=== PATIENT | female | born 1960 | race Caucasian/White ===

== ENCOUNTER 2022-10-02 23:20 | Inpatient (IN) | payer OTHER ==
--- NOTE | 2022-10-03 00:08 | ED ---
General Adult HPI - General Source: patient, RN notes reviewed Mode of arrival: EMS <Gautam Velarde - Last Filed: 10/03/22 02:44> <Shanelle Reed - Last Filed: 10/10/22 23:53> - General Chief complaint: Syncope Stated complaint: syncope Time Seen by Provider: 10/02/22 23:51 - History of Present Illness Initial comments: This is a pleasant 62-year-old female who arrives via EMS after having a syncopal episode. Patient states she walked to the bathroom and walked back to the living room. Patient states she got to the couch, felt lightheaded and passed out. Patient also ascertain that she has facial numbness which is now resolved. There was no seizure activity. This was witnessed by family. Patient states other than the lightheadedness she has no other preceding symptomology. However patient states that she is having generalized weakness which actually started earlier today. Patient currently being treated for a urinary tract infection. She is been on "ampicillin" for 5 days. GENERALIZED weakness, Patient has edema which she states has been present for several days to report stories. She has no other complaints. Patient does have a history of COPD. Former cigarette smoker. Patient states that her blood sugar was elevated via EMS. However she has no history of diabetes. No headache, no fever or chills, no changes in vision or hearing, no sore throat or difficulty with speech, no neck pain, no chest pain or shortness of breath, no abdominal pain, no nausea or vomiting, no changes in urination or bowel movem ents, no numbness or tingling, no extremity pain, no skin rashes or lesions. Past medical, surgical, social, and family history reviewed. NOTE that the patient states the symptoms started around 12 noon. (Gautam Velarde) - Related Data Home Medications Medication Instructions Recorded Confirmed Albuterol Nebulized [Ventolin 3 ml INHALATION RT-QID 10/03/22 10/03/22 Nebulized] Albuterol Sulfate [Ventolin HFA] 2 puff INHALATION RT-QID PRN 10/03/22 10/03/22 Atorvastatin Calcium [Lipitor] 80 mg PO DAILY 10/03/22 10/03/22 Budesonide-Formot 160-4.5 Mcg 1 puff INHALATION RT-BID 10/03/22 10/03/22 [Symbicort 160-4.5 Mcg Inhaler] Cyclobenzaprine [Flexeril] 10 mg PO TID PRN 10/03/22 10/03/22 Ergocalciferol [Vitamin D2 (1250 2,500 mcg PO Q28D 10/03/22 10/03/22 Mcg = 72125 Iu)] Ibuprofen [Motrin] 800 mg PO QID 10/03/22 10/03/22 Ketotifen 0.025% Ophth Soln 1 drop BOTH EYES BID 10/03/22 10/03/22 [Zaditor] Loratadine [Claritin] 10 mg PO DAILY 10/03/22 10/03/22 Metoclopramide [Reglan] 10 mg PO TID PRN 10/03/22 10/03/22 Montelukast [Singulair] 10 mg PO HS 10/03/22 10/03/22 Naloxegol Oxalate [Movantik] 25 mg PO DAILY 10/03/22 10/03/22 Naproxen [Naprosyn] 500 mg PO BID-W/MEALS 10/03/22 10/03/22 Omeprazole [PriLOSEC] 20 mg PO BID 10/03/22 10/03/22 Ondansetron [Zofran] 4 mg PO DAILY 10/03/22 10/03/22 Potassium Chloride [Klor-Con M20] 20 meq PO BID 10/03/22 10/03/22 QUEtiapine FUMARATE [QUEtiapine 300 mg PO HS 10/03/22 10/03/22 FUMARATE ER] Sucralfate [Carafate] 1 gm PO QID 10/03/22 10/03/22 methocarbamoL [Methocarbamol] 500 mg PO TID 10/03/22 10/03/22 rOPINIRole HCL 0.25 mg PO HS 10/03/22 10/03/22 Allergies Allergy/AdvReac Type Severity Reaction Status Date / Time No Known Allergies Allergy Verified 10/03/22 09:17 Review of Systems ROS Other: All systems not noted in ROS Statement are negative. <Gautam Velarde - Last Filed: 10/03/22 02:44> ROS Other: All systems not noted in ROS Statement are negative. <Shanelle Reed - Last Filed: 12/19/22 23:53> ROS Statement: Those systems with pertinent positive or pertinent negative responses have been documented in the HPI. Past Medical History Past Medical History: COPD History of Any Multi-Drug Resistant Organisms: None Reported Past Surgical History: Cholecystectomy, Hysterectomy, Tonsillectomy Past Psychological History: No Psychological Hx Reported Smoking Status: Former smoker Past Alcohol Use History: None Reported Past Drug Use History: None Reported <Gautam Velarde - Last Filed: 10/03/22 02:44> General Exam General appearance: alert, in no apparent distress Head exam: Present: atraumatic, normocephalic, normal inspection Eye exam: Present: normal appearance, PERRL, EOMI. Absent: scleral icterus, conjunctival injection, periorbital swelling ENT exam: Present: normal exam, normal oropharynx, mucous membranes moist, normal external ear exam. Absent: mucous membranes dry Neck exam: Present: normal inspection, full ROM. Absent: tenderness, meningismus, lymphadenopathy Respiratory exam: Present: wheezes. Absent: chest wall tenderness, accessory muscle use, decreased breath sounds, prolonged expiratory Cardiovascular Exam: Present: regular rate, normal rhythm, normal heart sounds. Absent: systolic murmur, diastolic murmur, rubs, gallop, clicks GI/Abdominal exam: Present: soft, normal bowel sounds. Absent: distended, tenderness, guarding, rebound, rigid Extremities exam: Present: pedal edema Back exam: Present: normal inspection Neurological exam: Present: alert, oriented X3, CN II-XII intact, other (No evidence of focal neurologic deficit.). Absent: motor sensory deficit Expanded Patient oriented to: Present: person, place, time Speech: Present: fluid speech Cranial nerves: EOM's Intact: Normal, Gag Reflex: Normal, Tongue Deviation: Normal, Nystagmus: Normal, Facial Sensation: Normal, Facial Palsy with Forehead Movement: Normal, Facial Palsy without Forehead Movement: Normal Ataxia: Absent: yes Cerebellar function: Finger to Nose: Normal Upper motor neuron: Abdirizak Neglect: Normal, Pronator Drift: Normal Motor strength exam: RUE: 5, LUE: 5, RLE: 5, LLE: 5 Eye Response: (4) open spontaneously Motor Response: (6) obeys commands Verbal Response: (5) oriented Reina Total: 15 Psychiatric exam: Present: normal affect, normal mood Skin exam: Present: warm, dry, intact, normal color. Absent: rash, cyanosis, diaphoretic, erythema, urticaria, vesicles, petechiae <Gautam Velarde - Last Filed: 10/03/22 02:44> Course <Gautam Velarde - Last Filed: 10/03/22 02:44> Vital Signs 10/02/22 10/03/22 10/03/22 23:48 02:00 03:00 Temperature 98.4 F Pulse Rate 91 98 100 Pulse Rate [ Plumbing Installer ] Respiratory 20 15 19 Rate Blood Pressure 133/89 126/60 141/84 Blood Pressure [Left Arm] O2 Sat by Pulse 98 96 98 Oximetry 10/03/22 10/03/22 10/03/22 07:42 07:50 08:50 Temperature 98.1 F Pulse Rate 87 88 Pulse Rate [ 93 Plumbing Installer ] Respiratory 16 Rate Blood Pressure Blood Pressure 127/63 [Left Arm] O2 Sat by Pulse 99 Oximetry 10/03/22 10/03/22 10/03/22 12:10 12:22 12:25 Temperature 96.8 F L Pulse Rate 90 92 Pulse Rate [ 95 Plumbing Installer ] Respiratory 16 Rate Blood Pressure Blood Pressure 119/83 [Left Arm] O2 Sat by Pulse 100 Oximetry 10/03/22 10/03/22 16:10 16:55 Temperature 97.8 F 97.7 F Pulse Rate Pulse Rate [ 92 96 Plumbing Installer ] Respiratory 16 17 Rate Blood Pressure Blood Pressure 127/81 126/84 [Left Arm] O2 Sat by Pulse 99 97 Oximetry - Reevaluation(s) Reevaluation #1: 10/03/22 01:22 Medical record is reviewed Patient no distress, symptoms are unchanged from the initial evaluation. Patient is informed of results and questions answered Patient in no distress EKG was a poor study. We'll order a repeat study. (Gautam Velarde) Reevaluation #2: 10/03/22 02:07 Patient reevaluated at 2 AM. NIH score of 2 for some drift in the right leg.Patient does have some weakness in the left leg as well. Patient has what appears to be clumsiness involving only the right hand. There is no drift. (Gautam Velarde) - Consultations Consultation #1: Case discussed in detail with Dr. Guillory who agrees to admit the patient for further evaluation and treatment. Consultation with neurology February. (Gautam Velarde) EKG Findings - EKG Comments: EKG Findings:: EKG independently interpreted by me at 2351 reveals sinus rhythm. Rate of 90, normal intervals, normal axis, no significant evidence of ST elevation or depression. There is artifact in several leads making this is difficult study to definitively interpret. We'll order a repeat study. Repeat EKG done at 1:24 AM and independently interpreted by me reveals again, baseline artifact, sinus rhythm with rate of 83. Normal intervals. Normal axis. No definitive evidence of ST elevation or depression. Review by the ED attending physician. <Gautam Velarde - Last Filed: 10/03/22 02:44> Medical Decision Making - Lab Data Result diagrams: 10/03/22 00:05 10/03/22 00:05 - Radiology Data Radiology results: report reviewed, image reviewed <Gautam Velarde - Last Filed: 10/03/22 02:44> - Lab Data Result diagrams: 10/09/22 12:43 10/09/22 12:43 <Shanelle Reed - Last Filed: 10/10/22 23:53> - Medical Decision Making Differential diagnosis: Cardiogenic versus vasovagal syncope. Patient has peripheral edema. Congestive heart failure possible, pulmonary embolism less likely. Also within the differential. Patient currently hemodynamically stable. Patient has leukocytosis with white blood cell count of 19,500. 17,600 neutrophils. Lymphocytes are low at 0.9. Thrombo-thrombocytosis with platelet count of 683,000. Hemoglobin is 10.1, hematocrit 32.4. Potassium low at 3.2. Sodium 136, BUN 4, creatinine 0.42, glucose 100. Magn esium 1.5, alkaline phosphatase 1.31, total protein 2.1, albumin 2.5. Urinalysis is essentially normal with only a few red cells and white cells. Rare bacteria. Negative nitrate D-dimer elevated at 1.48. We'll order a CTA of the chest to rule out pulmonary embolism. We'll need to obtain a venous Doppler of the bilateral lower extremities Patient's NIH score may be one if you count some mild drift of the right lower extremity. Patient neurologically intact otherwise. Patient had some sub jective facial numbness prior to the syncopal episode. This appears consistent with possible TIA. Symptoms started around 12 noon--per the patient, however, patient unsure.. Patient appears to have some waxing and waning global weakness involving the right side. Some subjective paresthesias well. We'll admit the patient, aspirin given. We'll consult neurology. Patient did receive IV contrast for CT of the chest to rule out pulmonary embolism. Patient also seen and assessed by the ED attending physician. After discussion with the attending physician in the patient. Patient will be admitted for syncopal episode with waxing and waning right-sided weakness as well as generalized weakness. Neurology consultation. Present physician Dr. Reed ([facility]) - Lab Data Lab Results 10/03/22 10/03/22 10/03/22 Range/Units 00:05 00:05 00:05 WBC 19.5 H (3.8-10.6) k/uL RBC 3.57 L (3.80-5.40) m/uL Hgb 10.1 L (11.4-16.0) gm/dL Hct 32.4 L (34.0-46.0) % MCV 90.9 (80.0-100.0) fL MCH 28.2 (25.0-35.0) pg MCHC 31.1 (31.0-37.0) g/dL RDW 15.6 H (11.5-15.5) % Plt Count 683 H (150-450) k/uL MPV 8.1 Neutrophils % 90 % Lymphocytes % 5 % Monocytes % 2 % Eosinophils % 1 % Basophils % 0 % Neutrophils # 17.6 H (1.3-7.7) k/uL Lymphocytes # 0.9 L (1.0-4.8) k/uL Monocytes # 0.5 (0-1.0) k/uL Eosinophils # 0.2 (0-0.7) k/uL Basophils # 0.0 (0-0.2) k/uL Hypochromasia Moderate PT 11.4 (9.0-12.0) sec INR 1.1 (<1.2) D-Dimer 1.48 H (<0.60) mg/L FEU Sodium 136 L (137-145) mmol/L Potassium 3.2 L (3.5-5.1) mmol/L Chloride 107 (98-107) mmol/L Carbon Dioxide 22 (22-30) mmol/L Anion Gap 7 mmol/L BUN 4 L (7-17) mg/dL Creatinine 0.42 L (0.52-1.04) mg/dL Est GFR (CKD-EPI)AfAm >90 (>60 ml/min/1.73 sqM) Est GFR (CKD-EPI)NonAf >90 (>60 ml/min/1.73 sqM) Glucose 100 H (74-99) mg/dL Estimated Ave Glu mg/dL Hemoglobin A1c (0.0-6.0) % Calcium 9.1 (8.4-10.2) mg/dL Magnesium 1.5 L (1.6-2.3) mg/dL Total Bilirubin 0.5 (0.2-1.3) mg/dL AST 30 (14-36) U/L ALT 22 (4-34) U/L Alkaline Phosphatase 131 H (38-126) U/L Troponin I (0.000-0.034) ng/mL NT-Pro-B Natriuret Pep pg/mL Total Protein 5.1 L (6.3-8.2) g/dL Albumin 2.5 L (3.5-5.0) g/dL Urine Color Urine Appearance (Clear) Urine pH (5.0-8.0) Ur Specific [place] (1.001-1.035) Urine Protein (Negative) Urine Glucose (UA) (Negative) Urine Ketones (Negative) Urine Blood (Negative) Urine Nitrite (Negative) Urine Bilirubin (Negative) Urine Urobilinogen (<2.0) mg/dL Ur Leukocyte Esterase (Negative) Urine RBC (0-5) /hpf Urine WBC (0-5) /hpf Ur Squamous Epith Cells (0-4) /hpf Urine Bacteria (None) /hpf Urine Mucus (None) /hpf Urine Opiates Screen (NotDetected) Ur Oxycodone Screen (NotDetected) Urine Methadone Screen (NotDetected) Ur Propoxyphene Screen (NotDetected) Ur Barbiturates Screen (NotDetected) U Tricyclic Antidepress (NotDetected) Ur Phencyclidine Scrn (NotDetected) Ur Amphetamines Screen (NotDetected) U Methamphetamines Scrn (NotDetected) U Benzodiazepines Scrn (NotDetected) Urine Cocaine Screen (NotDetected) U Marijuana (THC) Screen (NotDetected) 10/03/22 10/03/22 10/03/22 Range/Units 00:05 00:05 00:05 WBC (3.8-10.6) k/uL RBC (3.80-5.40) m/uL Hgb (11.4-16.0) gm/dL Hct (34.0-46.0) % MCV (80.0-100.0) fL MCH (25.0-35.0) pg MCHC (31.0-37.0) g/dL RDW (11.5-15.5) % Plt Count (150-450) k/uL MPV Neutrophils % % Lymphocytes % % Monocytes % % Eosinophils % % Basophils % % Neutrophils # (1.3-7.7) k/uL Lymphocytes # (1.0-4.8) k/uL Monocytes # (0-1.0) k/uL Eosinophils # (0-0.7) k/uL Basophils # (0-0.2) k/uL Hypochromasia PT (9.0-12.0) sec INR (<1.2) D-Dimer (<0.60) mg/L FEU Sodium (137-145) mmol/L Potassium (3.5-5.1) mmol/L Chloride (98-107) mmol/L Carbon Dioxide (22-30) mmol/L Anion Gap mmol/L BUN (7-17) mg/dL Creatinine (0.52-1.04) mg/dL Est GFR (CKD-EPI)AfAm (>60 ml/min/1.73 sqM) Est GFR (CKD-EPI)NonAf (>60 ml/min/1.73 sqM) Glucose (74-99) mg/dL Estimated Ave Glu mg/dL 94 Hemoglobin A1c 4.9 (0.0-6.0) % Calcium (8.4-10.2) mg/dL Magnesium (1.6-2.3) mg/dL Total Bilirubin (0.2-1.3) mg/dL AST (14-36) U/L ALT (4-34) U/L Alkaline Phosphatase (38-126) U/L Troponin I <0.012 (0.000-0.034) ng/mL NT-Pro-B Natriuret Pep 198 pg/mL Total Protein (6.3-8.2) g/dL Albumin (3.5-5.0) g/dL Urine Color Urine Appearance (Clear) Urine pH (5.0-8.0) Ur Specific [place] (1.001-1.035) Urine Protein (Negative) Urine Glucose (UA) (Negative) Urine Ketones (Negative) Urine Blood (Negative) Urine Nitrite (Negative) Urine Bilirubin (Negative) Urine Urobilinogen (<2.0) mg/dL Ur Leukocyte Esterase (Negative) Urine RBC (0-5) /hpf Urine WBC (0-5) /hpf Ur Squamous Epith Cells (0-4) /hpf Urine Bacteria (None) /hpf Urine Mucus (None) /hpf Urine Opiates Screen (NotDetected) Ur Oxycodone Screen (NotDetected) Urine Methadone Screen (NotDetected) Ur Propoxyphene Screen (NotDetected) Ur Barbiturates Screen (NotDetected) U Tricyclic Antidepress (NotDetected) Ur Phencyclidine Scrn (NotDetected) Ur Amphetamines Screen (NotDetected) U Methamphetamines Scrn (NotDetected) U Benzodiazepines Scrn (NotDetected) Urine Cocaine Screen (NotDetected) U Marijuana (THC) Screen (NotDetected) 10/03/22 10/03/22 Range/Units 00:21 00:21 WBC (3.8-10.6) k/uL RBC (3.80-5.40) m/uL Hgb (11.4-16.0) gm/dL Hct (34.0-46.0) % MCV (80.0-100.0) fL MCH (25.0-35.0) pg MCHC (31.0-37.0) g/dL RDW (11.5-15.5) % Plt Count (150-450) k/uL MPV Neutrophils % % Lymphocytes % % Monocytes % % Eosinophils % % Basophils % % Neutrophils # (1.3-7.7) k/uL Lymphocytes # (1.0-4.8) k/uL Monocytes # (0-1.0) k/uL Eosinophils # (0-0.7) k/uL Basophils # (0-0.2) k/uL Hypochromasia PT (9.0-12.0) sec INR (<1.2) D-Dimer (<0.60) mg/L FEU Sodium (137-145) mmol/L Potassium (3.5-5.1) mmol/L Chloride (98-107) mmol/L Carbon Dioxide (22-30) mmol/L Anion Gap mmol/L BUN (7-17) mg/dL Creatinine (0.52-1.04) mg/dL Est GFR (CKD-EPI)AfAm (>60 ml/min/1.73 sqM) Est GFR (CKD-EPI)NonAf (>60 ml/min/1.73 sqM) Glucose (74-99) mg/dL Estimated Ave Glu mg/dL Hemoglobin A1c (0.0-6.0) % Calcium (8.4-10.2) mg/dL Magnesium (1.6-2.3) mg/dL Total Bilirubin (0.2-1.3) mg/dL AST (14-36) U/L ALT (4-34) U/L Alkaline Phosphatase (38-126) U/L Troponin I (0.000-0.034) ng/mL NT-Pro-B Natriuret Pep pg/mL Total Protein (6.3-8.2) g/dL Albumin (3.5-5.0) g/dL Urine Color Light Yellow Urine Appearance Clear (Clear) Urine pH 6.5 (5.0-8.0) Ur Specific [place] 1.006 (1.001-1.035) Urine Protein Negative (Negative) Urine Glucose (UA) Negative (Negative) Urine Ketones Negative (Negative) Urine Blood Negative (Negative) Urine Nitrite Negative (Negative) Urine Bilirubin Negative (Negative) Urine Urobilinogen <2.0 (<2.0) mg/dL Ur Leukocyte Esterase Small H (Negative) Urine RBC 4 (0-5) /hpf Urine WBC 2 (0-5) /hpf Ur Squamous Epith Cells <1 (0-4) /hpf Urine Bacteria Rare H (None) /hpf Urine Mucus Rare H (None) /hpf Urine Opiates Screen Not Detected (NotDetected) Ur Oxycodone Screen Not Detected (NotDetected) Urine Methadone Screen Not Detected (NotDetected) Ur Propoxyphene Screen Not Detected (NotDetected) Ur Barbiturates Screen Not Detected (NotDetected) U Tricyclic Antidepress Detected H (NotDetected) Ur Phencyclidine Scrn Not Detected (NotDetected) Ur Amphetamines Screen Not Detected (NotDetected) U Methamphetamines Scrn Not Detected (NotDetected) U Benzodiazepines Scrn Not Detected (NotDetected) Urine Cocaine Screen Not Detected (NotDetected) U Marijuana (THC) Screen Not Detected (NotDetected) - Radiology Data Independent review of the chest x-ray, CT of the brain, and CT of the chest by me reveals no evidence for acute pathology. Did review the radiology interpretation. (Gautam Velarde) Disposition Is patient prescribed a controlled substance at d/c from ED?: No Time of Disposition: 02:33 Decision to Admit Reason: Admit from EC Decision Time: 02:34 <Gautam Velarde - Last Filed: 10/03/22 02:44> <Shanelle Reed - Last Filed: 10/10/22 23:53> Clinical Impression: Syncope, Acute right-sided muscle weakness, Peripheral edema, Hypomagnesemia, Hypokalemia Disposition: ADMITTED IP TO THIS HOSP Condition: Good
[2022-10-03 00:19] LABS: Basophils % (A) 0 %; Eosinophils # (A) 0.2 k/uL (0-0.7); Eosinophils % (A) 1 %; HCT 32.4 % (34.0-46.0); HGB 10.1 gm/dL (11.4-16.0); Hypochromasia Moderate; Lymphocytes # (A) 0.9 k/uL (1.0-4.8); Lymphocytes % (A) 5 %; MCH 28.2 pg (25.0-35.0); MCHC 31.1 g/dL (31.0-37.0); MCV 90.9 fL (80.0-100.0); Mean Platelet Volume 8.1; Monocytes # (A) 0.5 k/uL (0-1.0); Monocytes % (A) 2 %; Neutrophils # (A) 17.6 k/uL (1.3-7.7); Neutrophils % (A) 90 %; Platelet Count 683 k/uL (150-450); RBC 3.57 m/uL (3.80-5.40); RDW 15.6 % (11.5-15.5); WBC 19.5 k/uL (3.8-10.6)
[2022-10-03 00:45] LABS: INR 1.1 (<1.2); Prothrombin Time 11.4 sec (9.0-12.0)
[2022-10-03 00:50] LABS: ALT 22 U/L (4-34); AST 30 U/L (14-36); African American GFR (CKD) >90 (>60 ml/min/1.73 sqM); Albumin 2.5 g/dL (3.5-5.0); Alkaline Phosphatase 131 U/L (38-126); Anion Gap 7 mmol/L; Blood Urea Nitrogen 4 mg/dL (7-17); Calcium 9.1 mg/dL (8.4-10.2); Carbon Dioxide 22 mmol/L (22-30); Chloride 107 mmol/L (98-107); Glucose 100 mg/dL (74-99); Magnesium 1.5 mg/dL (1.6-2.3); Non-African American GFR(CKD) >90 (>60 ml/min/1.73 sqM); Potassium 3.2 mmol/L (3.5-5.1); Sodium 136 mmol/L (137-145); Total Bilirubin 0.5 mg/dL (0.2-1.3); Total Protein 5.1 g/dL (6.3-8.2)
[2022-10-03 00:51] LABS: Appearance,Urine Clear (Clear); Bacteria,Urine Rare /hpf; Bilirubin,Urine Negative (Negative); Blood,Urine Negative (Negative); Color,Urine Light Yellow; Glucose,Urine (UA) Negative (Negative); Ketones,Urine Negative (Negative); Leukocyte Esterase,Urine Small (Negative); Mucus,Urine Rare /hpf; Nitrite,Urine Negative (Negative); PH, Urine 6.5 (5.0-8.0); Protein,Urine Negative (Negative); RBC,Urine 4 /hpf (0-5); Specific Gravity,Urine 1.006 (1.001-1.035); Squamous Epithelial Cell,Urine <1 /hpf (0-4); Urobilinogen,Urine <2.0 mg/dL (<2.0); WBC,Urine 2 /hpf (0-5)
[2022-10-03] MEDS ORDERED: Potassium Replacement Protocol 1 EACH MISC MISCELLANE PRN (01:20)
[2022-10-03] MEDS ORDERED: Magnesium Replacement Protocol 1 EACH MISC MISCELLANE PRN (01:21)
--- NOTE | 2022-10-03 01:22 | CT ---
EXAMINATION TYPE: CT brain wo con DATE OF EXAM: 10/03/2022 COMPARISON: None HISTORY: syncope CT DLP: 1099.6 mGycm Automated exposure control for dose reduction was used. Images obtained of the brain with no contrast. Ventricles have normal size. There is no mass effect or midline shift. No sign of intracranial hemorr alberto. Calvarium is intact. There is normal aeration of the mastoid sinuses. IMPRESSION: Negative unenhanced head CT scan.
--- NOTE | 2022-10-03 01:23 | XR ---
EXAMINATION TYPE: XR chest 1V portable DATE OF EXAM: 10/03/2022 COMPARISON: NONE HISTORY: Syncope TECHNIQUE: Single view FINDINGS: Heart is normal. Lungs are clear. Diaphragm is normal. Bony thorax is normal. There are anayeli st leads. IMPRESSION: Normal chest.
[2022-10-03] MEDS ORDERED: ASPIRIN 325 MG TAB PO STA (02:01)
--- NOTE | 2022-10-03 02:17 | CT ---
EXAMINATION TYPE: CT chest angio for PE DATE OF EXAM: 10/03/2022 COMPARISON: None HISTORY: sob, elevated d dimer CT DLP: 215.7 mGycm Automated exposure control for dose reduction was used. CONTRAST: Performed with IV Contrast, patient injected with 37 mL of Isovue 370. Images obtained from the thoracic inlet to the diaphragm with the IV contrast. There are Three-D post processed images. There is some mild pulmonary emphysema. No pleural effusion. Heart size is normal. There is no perica rdial effusion. Lungs are clear of infiltrate. There is no mediastinal adenopathy. There are no hilar masses. The bony thorax is intact. The sternum is intact. Thoracic aorta is intact. No aneurysm or dissection. The ascending aorta measures 2.8 cm. There is no rmal contrast opacification of the pulmonary arteries. No filling defect. IMPRESSION: Negative exam. No evidence of pulmonary embolism. Mild pulmonary emphysema.
[2022-10-03] MEDS ORDERED: ACETAMINOPHEN TAB 325 MG TAB PO PRN (02:37)
[2022-10-03] MEDS ORDERED: ALBUTEROL NEBULIZED 2.5 MG/3 ML INHALATION PRN (02:43)
[2022-10-03] MEDS: POTASSIUM CHLORIDE ER 20 MEQ TAB.ER PO SCH ×3 (02:55→20:23)
[2022-10-03] MEDS: SODIUM CHLORIDE 0.9% 1,000 ML IV SCH ×3 (02:56→21:15)
[2022-10-03] MEDS: MAGNESIUM SULFATE-D5W PMX 1 GM in DEXTROSE/WATER 1 100ML.BAG IVPB SCH ×2 (02:56→06:20)
[2022-10-03 03:34] LABS: Amphetamine Screen,Urine Not Detected (NotDetected); Barbiturate Screen,Urine Not Detected (NotDetected); Benzodiazepines Screen,Urine Not Detected (NotDetected); Cocaine Screen,Urine Not Detected (NotDetected); Methadone Screen, Urine Not Detected (NotDetected); Opiate Screen,Urine Not Detected (NotDetected); Oxycodone Screen, Urine Not Detected (NotDetected); Phencyclidine Screen,Urine Not Detected (NotDetected); Tricyclic Antidepressant,Urine Detected (NotDetected); Urn Cannabinoid Scrn Not Detected (NotDetected)
--- NOTE | 2022-10-03 07:36 | US ---
EXAMINATION TYPE: US venous doppler duplex LE DATE OF EXAM: 10/03/2022 7:28 AM COMPARISON: NONE CLINICAL HISTORY: Bilateral leg edema, elevated d-dimer. swelling no h/o dvt SIDE PERFORMED: Bilateral TECHNIQUE: The lower extremity deep venous system is examined utilizing real time linear array sonog vale with graded compression, doppler sonography and color-flow sonography. VESSELS IMAGED: Common Femoral Vein Deep Femoral Vein Greater Saphenous Vein * Femoral Vein Popliteal Vein Small Saphenous Vein * Proximal Calf Veins (* superficial vessels) Right Leg: Negative for DVT Left Leg: Negative for DVT Grayscale, color doppler, spectral doppler imaging performed of the deep veins of the lower extremiti es. There is normal flow, compressibility, vascular waveforms. IMPRESSION: 1. No evidence of deep vein tendinosis of either lower extremity. 2. Streaky subcutaneous edema bilaterally.
[2022-10-03] MEDS: IPRATROPIUM-ALBUTEROL 3 ML NEB INHALATION PRN (07:40)
--- NOTE | 2022-10-03 08:39 | US ---
EXAMINATION TYPE: US carotid duplex BILAT DATE OF EXAM: 10/03/2022 COMPARISON: NONE CLINICAL HISTORY: Stenosis. syncope, no h/o stroke TECHNIQUE: Carotid duplex ultrasound examination. Indirect Doppler criteria was utilized. FINDINGS: EXAM MEASUREMENTS: RIGHT: Peak Systolic Velocity (PSV) cm/sec ----- Right CCA: 108 ----- Right ICA: 112 ----- Right ECA: 127 ICA/CCA ratio: 1.0 RIGHT: End Diastole cm/sec ----- Right CCA: 22.7 ----- Right ICA: 33.8 ----- Right ECA: 29.3 LEFT: Peak Systolic Velocity (PSV) cm/sec ----- Left CCA: 73.5 ----- Left ICA: 139 ----- Left ECA: 98.7 ICA/CCA ratio: 1.8 LEFT: End Diastole cm/sec ----- Left CCA: 17.5 ----- Left ICA: 47.5 ----- Left ECA: 18.0 VERTEBRALS (direction of flow): Right Vertebral: Antegrade Left Vertebral: Antegrade Rhythm: Normal SOFTWARE PUBLISHER NOTES: mild homogeneous plaque with no stenosis seen IMPRESSION: 1. 50-69% stenosis of the left carotid bifurcation by peak systolic velocity. 2. Less than 50% stenosis of the right carotid bifurcation. Criteria for Assigning % of Stenosis / Diameter reduction (Estimation based on the indirect measurements of the internal carotid artery velocities (ICA PSV). 1. Normal (no stenosis)=ICA PSV < 125 cm/s: ratio < 2.0: ICA EDV<40 cm/s. 2. Less than 50% stenosis=ICA PSV < 125 cm/s: ratio < 2.0: ICA EDV<40 cm/s. 3. 50 to 69% stenosis=ICA PSV of 125 to 230 cm/s: ration 2.0 ? 4.0: ICA EDV 40-100 cm/s. 4. Greater than 70% stenosis to near occlusion= ICA PSV > 230 cm/s: ratio > 4.0: ICA EDV > 100 cm/s. 5. Near occlusion= ICA PSV velocities may be low or undetectable: variable ratio and ICA EDV. 6. Total occlusion=unable to detect flow.
[2022-10-03] MEDS: ALBUTEROL NEBULIZED 2.5 MG/3 ML INHALATION SCH ×3 (12:10→19:29)
[2022-10-03] MEDS: HEPARIN SODIUM,PORCINE/PF 5,000 UNIT/0.5 ML SYRINGE SQ SCH ×3 (12:38→22:46)
[2022-10-03] MEDS: SUCRALFATE 1 GM TAB PO SCH ×3 (14:03→20:23)
--- NOTE | 2022-10-03 16:53 | MR ---
EXAMINATION TYPE: MR brain wo con DATE OF EXAM: 10/03/2022 4:42 PM COMPARISON: 10/03/2022. CLINICAL INDICATION:Female, 62 years old with history of Right-sided neurological deficit; TECHNIQUE: Multi planar, multi sequence imaging was performed through the brain including: T1, T2, In version recovery, Diffusion weighted imaging, and gradient echo imaging. No gadolinium was given. Scan time was decreased due to patient's claustrophobia. FINDINGS: The zuleta-white junctions, ventricular system, and cisterns appear unremarkable. Scattered foci of hi gh T2 signal intensity are seen within the periventricular white matter. Midline structures show no a bnormality. Diffusion-weighted imaging shows no evidence of restricted diffusion. The susceptibility weighted images do not reveal any evidence for micro-hemorrhage. The bone marrow signal is within normal limits. Paranasal sinuses and mastoid air cells: Clear Visualized orbits: Orbital contents are intact. IMPRESSION: 1. No evidence of intracranial mass or acute/subacute infarct. 2. Nonspecific white matter changes, likely secondary to small vessel ischemic disease.
[2022-10-03] MEDS: PANTOPRAZOLE 40 MG TABLET PO SCH (18:16)
[2022-10-03] MEDS: SYMBICORT 160-4.5 MCG INHALER INHALATION SCH (19:29)
[2022-10-03] MEDS: MONTELUKAST 10 MG TAB PO SCH (20:23)
[2022-10-03] MEDS: METOCLOPRAMIDE 10 MG TAB PO PRN (20:28)
[2022-10-03] MEDS: KETOTIFEN 0.025% OPHTH DROPS 5 ML BTL BOTH EYES SCH (20:29)
--- NOTE | 2022-10-03 20:42 | HP ---
HISTORY AND PHYSICAL CHIEF COMPLAINT: Syncope and right-sided weakness. HISTORY OF PRESENT ILLNESS: This is another admission for this 62-year-old debilitated female. She was just in [facility] and worked up for what was initially thought to be a small bowel obstruction, but turned out to be an ileus. She was sent home and then she came back in this time stating that she had fallen when she got up to go to the bathroom and passed out. She denies chest pain, headache, etc. When she presented to the emergency room, she had some weakness on the right. D-dimer was elevated, but the CTA of the chest was normal. CT of the brain was normal. There is no history of arrhythmias or chest pain. REVIEW OF SYSTEMS: She has had no other symptoms or signs. Past medical history, family history, personal and social histories reveal that she has been a heavy smoker in the past. It is not clear what medication she is taking. She has been on some psychiatric medicines in the past. She denies alcohol usage. PHYSICAL EXAMINATION: VITAL SIGNS: Blood pressure is 112/66 with a pulse of 102 and regular, respirations of 18, and she is afebrile. GENERAL: She appeared to be pale and chronically ill. HEAD, EARS, EYES, NOSE, MOUTH AND THROAT: Normal. CHEST: Clear. CARDIAC: Demonstrated what sounded like sinus tachycardia. ABDOMEN: Soft and nontender. It was not distended and there are no masses or visceromegaly. Bowel sounds are present. EXTREMITIES: Normal. NEUROLOGICAL: She seemed to be intact. She may have had some minimal right-sided weakness. ASSESSMENT: She is admitted to the hospital with diagnosis of: 1. Syncope. 2. Mild right hemiparesis. 3. General debility and failure to thrive. 4. History of gastrointestinal bleeding. 5. History of recent ileus or bowel obstruction. PLAN: 1. Bedrest. 2. IV fluids. 3. Frequent monitoring of her neurologic status and vital signs. 4. Neurology consult. MMODL / IJN: [id number] /
[2022-10-03] MEDS: QUEtiapine 50 MG TAB PO SCH (22:46)
[2022-10-04] MEDS: PANTOPRAZOLE 40 MG TABLET PO SCH ×2 (06:04→17:23)
[2022-10-04] MEDS: SYMBICORT 160-4.5 MCG INHALER INHALATION SCH ×2 (08:08→20:19)
[2022-10-04] MEDS: ALBUTEROL NEBULIZED 2.5 MG/3 ML INHALATION SCH ×4 (08:08→20:19)
[2022-10-04] MEDS ORDERED: ASPIRIN 325 MG TAB PO SCH (09:00)
[2022-10-04] MEDS: HEPARIN SODIUM,PORCINE/PF 5,000 UNIT/0.5 ML SYRINGE SQ SCH ×3 (10:14→23:26)
[2022-10-04] MEDS: POTASSIUM CHLORIDE ER 20 MEQ TAB.ER PO SCH ×2 (10:15→20:53)
[2022-10-04] MEDS: QUEtiapine 50 MG TAB PO SCH ×2 (10:15→23:25)
[2022-10-04] MEDS: KETOTIFEN 0.025% OPHTH DROPS 5 ML BTL BOTH EYES SCH ×2 (10:15→20:54)
[2022-10-04] MEDS: SUCRALFATE 1 GM TAB PO SCH ×4 (10:15→20:54)
[2022-10-04] MEDS: ONDANSETRON 4 MG TAB PO SCH (10:15)
[2022-10-04] MEDS: SODIUM CHLORIDE 0.9% 1,000 ML IV SCH ×2 (10:16→17:23)
[2022-10-04 10:27] LABS: Magnesium 1.5 mg/dL (1.6-2.3)
--- NOTE | 2022-10-04 11:30 | P.CNNES ---
History of Present Illness Consult date: 10/03/22 Requesting physician: Gautam Velarde Reason for Consult: Syncope, neurological impairment History of Present Illness: Patient is a 62-year-old right-handed female came to the hospital by ambulance yesterday at 11:20 PM. EMS flow sheet not available in the chart. Patient tells me that she went to the bathroom, was walking with her walker. While she was coming back, walking to the couch, she developed numbness and weakness of right-sided the body, and she blacked out, as she does not remember how long she was out for. Her rise of the face was numb. She denied any slurred speech, or any problem with the vision, no blurred vision, facial droop or headache. Patient lives with her sister and [id number], and they called the ambulance and patient was brought to the hospital. Vital signs on arrival blood pressure 133/89, pulse rate [address] head reported as "negative". Chest x-ray normal. CTA of the chest was negative for pulmonary embolism. Mild pulmonary emphysema. Venous Doppler nega tive for DVT in either lower extremities. EKG shows sinus rhythm with occasional ventricular premature complexes. Blood test shows WBC 19.5 hemoglobin 10.1, platelets 683. PT/PTT normal. D-dimer mildly elevated 1.48. Sodium 136 potassium 3.2, normal renal functions. Hepatic panel normal, tropo denisse negative. UA negative, urine drug screen positive for tricyclics. Home medications include Requip 0.25 mg at bedtime, Seroquel 300 mg at bedtime, naproxen, albuterol, Lipitor 80 mg, omeprazole, Reglan, methocarbamol 500 mg 3 times a day, Flexeril 10 mg 3 times a day. Patient does not take any antiplatelet medication at home. Patient states that at this time she still feels weak on the right side involving the arm and leg. Patient denies any history of hypertension or diabetes. She smoked 2 packs per day for 34 years, quit smoking 15 months ago. Denies any alcohol. Patient denies any history of strokes or TIAs in the past. Review of Systems Constitutional: Denies chills, Denies fever Eyes: denies blurred vision, denies decreased vision, denies pain, denies loss of peripheral vision Ears: deny: decreased hearing Ears, nose, mouth and throat: Denies headache, Denies sore throat Cardiovascular: Denies chest pain, Denies shortness of breath Respiratory: Denies cough Gastrointestinal: Denies abdominal pain, Denies diarrhea, Denies nausea, Denies vomiting Genitourinary: Denies dysuria, Denies hematuria Musculoskeletal: Reports low back pain, Reports muscle weakness, Denies myalgias Integumentary: Denies pruritus, Denies rash Neurological: Reports as per HPI Psychiatric: Denies anxiety, Denies depression Endocrine: Denies fatigue, Denies weight change Hematologic/Lymphatic: Denies easy bruising Past Medical History Past Medical History: COPD, Osteoarthritis (OA) History of Any Multi-Drug Resistant Organisms: None Reported Past Surgical History: Cholecystectomy, Hysterectomy, Joint Replacement, Tonsillectomy Additional Past Surgical History / Comment(s): left knee Past Anesthesia/Blood Transfusion Reactions: No Reported Reaction Past Psychological History: No Psychological Hx Reported Smoking Status: Former smoker Past Alcohol Use History: None Reported Past Drug Use History: None Reported - Past Family History Mother History Unknown: Yes Father Family Medical History: Congestive Heart Failure (CHF), Hypertension Medications and Allergies Home Medications Medication Instructions Recorded Confirmed Type Albuterol Nebulized [Ventolin 3 ml INHALATION RT-QID 10/03/22 10/03/22 History Nebulized] Albuterol Sulfate [Ventolin HFA] 2 puff INHALATION RT-QID PRN 10/03/22 10/03/22 History Atorvastatin Calcium [Lipitor] 80 mg PO DAILY 10/03/22 10/03/22 History Budesonide-Formot 160-4.5 Mcg 1 puff INHALATION RT-BID 10/03/22 10/03/22 History [Symbicort 160-4.5 Mcg Inhaler] Cyclobenzaprine [Flexeril] 10 mg PO TID PRN 10/03/22 10/03/22 History Ergocalciferol [Vitamin D2 (1250 2,500 mcg PO Q28D 10/03/22 10/03/22 History Mcg = 73923 Iu)] Ibuprofen [Motrin] 800 mg PO QID 10/03/22 10/03/22 History Ketotifen 0.025% Ophth Soln 1 drop BOTH EYES BID 10/03/22 10/03/22 History [Zaditor] Loratadine [Claritin] 10 mg PO DAILY 10/03/22 10/03/22 History Metoclopramide [Reglan] 10 mg PO TID PRN 10/03/22 10/03/22 History Montelukast [Singulair] 10 mg PO HS 10/03/22 10/03/22 History Naloxegol Oxalate [Movantik] 25 mg PO DAILY 10/03/22 10/03/22 History Naproxen [Naprosyn] 500 mg PO BID-W/MEALS 10/03/22 10/03/22 History Omeprazole [PriLOSEC] 20 mg PO BID 10/03/22 10/03/22 History Ondansetron [Zofran] 4 mg PO DAILY 10/03/22 10/03/22 History Potassium Chloride [Klor-Con M20] 20 meq PO BID 10/03/22 10/03/22 History QUEtiapine FUMARATE [QUEtiapine 300 mg PO HS 10/03/22 10/03/22 History FUMARATE ER] Sucralfate [Carafate] 1 gm PO QID 10/03/22 10/03/22 History methocarbamoL [Methocarbamol] 500 mg PO TID 10/03/22 10/03/22 History rOPINIRole HCL 0.25 mg PO HS 10/03/22 10/03/22 History Allergies Allergy/AdvReac Type Severity Reaction Status Date / Time No Known Allergies Allergy Verified 10/03/22 09:17 Physical Examination - Vital Signs Vital Signs: Vital Signs Temp Pulse Pulse Resp BP BP Pulse Ox 10/03/22 12:25 96.8 F L 95 16 119/83 100 10/03/22 12:22 92 10/03/22 12:10 90 10/03/22 08:50 98.1 F 93 16 127/63 99 10/03/22 07:50 88 10/03/22 07:42 87 10/03/22 03:00 100 19 141/84 98 10/03/22 02:00 98 15 126/60 96 10/02/22 23:48 98.4 F 91 20 133/89 98 Intake and Output 10/02/22 10/03/22 10/03/22 22:59 06:59 14:59 Other: Voiding Method External Catheter Weight 46.72 kg 46.72 kg Patient is an elderly female, in no acute distress. Patient is alert awake oriented to time place and person. Speech and language functions are normal. Patient can name and repeat very well. No aphasia or dysarthria. Attention, concentration and fund of knowledge is adequate. On cranial nerve examination, pupils are equal, round and reacting to light, visual caraballo are full on confrontation, with no neglect on double simultaneous stimulation. Extraocular muscles are intact with no nystagmus. Patient has very mild right facial asymmetry. Her tongue protrudes to the midline. Palatal elevation and sensation normal, hearing and shoulder shrug normal, facial sensation normal. On muscle strength testing, there is right pronator drift and the strength is (right/left) deltoid 3+/5-, triceps 5/5, [place] carrier 4/5, hip flexion 3+/4, ankle dorsiflexion 2/5. Deep tendon reflexes are (right/left) biceps 2/2, brachioradialis 2/2, knees 3/2+, ankles 2+/2+ and plantar is up on the right and downgoing on the left. Sensory to touch is decreased in the right arm and right leg, but equal on the face. Cerebellar function showed shakiness for [id number] on the right, but not on the left. Finger tapping slower on the right. No ataxia for [id number] testing on either side. Tone and bulk of muscles normal. Gait deferred.. On general examination, there is no carotid bruit or murmur, S1-S2 audible. Chest is clear on consultation. Abdomen is soft nontender. No organomegaly, bowel sounds present. Peripheral pulses are present. No edema. Results - Laboratory Findings CBC and BMP: 10/03/22 00:05 10/03/22 00:05 Abnormal Lab Findings: Abnormal Labs 10/03/22 10/03/22 10/03/22 00:05 00:05 00:05 WBC 19.5 H RBC 3.57 L Hgb 10.1 L Hct 32.4 L RDW 15.6 H Plt Count 683 H Neutrophils # 17.6 H Lymphocytes # 0.9 L D-Dimer 1.48 H Sodium 136 L Potassium 3.2 L BUN 4 L Creatinine 0.42 L Glucose 100 H Magnesium 1.5 L Alkaline Phosphatase 131 H Total Protein 5.1 L Albumin 2.5 L Ur Leukocyte Esterase Urine Bacteria Urine Mucus U Tricyclic Antidepress 10/03/22 10/03/22 00:21 00:21 WBC RBC Hgb Hct RDW Plt Count Neutrophils # Lymphocytes # D-Dimer Sodium Potassium BUN Creatinine Glucose Magnesium Alkaline Phosphatase Total Protein Albumin Ur Leukocyte Esterase Small H Urine Bacteria Rare H Urine Mucus Rare H U Tricyclic Antidepress Detected H Assessment and Plan Assessment: * 62-year-old female admitted with a syncopal spell followed by right hemiparesis. Patient still has right hemiparesis, but the MRI of the brain is negative for an acute stroke. * Moderate left ICA stenosis * X tobacco use Plan: * Clinically it appears patient has an acute stroke. However MRI of the brain came back negative for an acute stroke. Possible reversible ischemic neurological deficit. * MRI of the brain revealed no evidence of an acute intracranial mass or acute/subacute infarct. I personally reviewed MRI, I agree with the findings. There is no evidence of an acute stroke. * Carotid Doppler revealed 50-69% stenosis of the left carotid bifurcation. Less than 50% stenosis of the right carotid bifurcation. Antegrade flow in both vertebral arteries. Left ICA stenosis probably symptomatic. We will consult vascular surgery for their opinion. * 2-D echo with bubble study, rule out PFO. * Hemoglobin A1c 4.9 * Fasting lipid panel * Telemetry monitoring * Patient started on aspirin. Patient was not taking any antiplatelet medication at home. We will place on DAP for 21 days, and then stopped Plavix and continue aspirin indefinitely. * PT OT, speech therapy * Permissive hypertension for 24-48 hours * Neurology will follow. Thank you for the consult. Time with Patient: Greater than 30
[2022-10-04] MEDS: CLOPIDOGREL 75 MG TAB PO SCH (12:48)
[2022-10-04] MEDS: HYDROcodone/APAP 5-325MG 1 EACH TAB PO PRN ×2 (12:48→23:29)
--- NOTE | 2022-10-04 14:13 | P.GSCN ---
History of Present Illness Consult date: 10/04/22 Reason for Consult: Right-sided weakness, carotid stenosis Requesting physician: Stephanie Torres History of present illness: This a pleasant 62-year-old female who presented to the emergency department on Monday late evening for complaints of dizziness. Patient states that she got up to go to the bathroom and that she was lightheaded and dizzy. She states that she went to sit onto the couch and she passed out. She states that she felt her whole right side of her body go weak. Her past medical history includes former smoker states she quit 15 months ago and COPD. She denies any previous history of coronary artery disease or previous strokes. She states she still has weakness in her right upper and lower extremity. She had a CT of the brain showed no acute findings. She was also noted to have mildly elevated d-dimer and a chest CTA that was negative for pulmonary embolism as well as bilateral lower extremity venous Dopplers negative for DVT. Neurology was consulted and ordered a carotid duplex that didn't show reported 50-69% stenosis of left ICA and less than 50% stenosis of the right ICA. Vascular surgery was consulted for ICA stenosis. Patient currently denies any shortness of breath or chest pain. Denies any abdominal pain, nausea or vomiting. She states she has right upper extremity weakness as well as right lower extremity weakness. Denies any visual changes, difficulty speaking or swallowing. MRI of the brain shows no evidence of intracranial mass or acute subacute infarct. Nonspecific white matter changes. Likely secondary to small vessel ischemic disease. Review of Systems A 14 point review systems was completed all pertinent positives and negatives as stated in the HPI. Past Medical History Past Medical History: COPD, Osteoarthritis (OA) History of Any Multi-Drug Resistant Organisms: None Reported Past Surgical History: Cholecystectomy, Hysterectomy, Joint Replacement, Tonsillectomy Additional Past Surgical History / Comment(s): left knee Past Anesthesia/Blood Transfusion Reactions: No Reported Reaction Past Psychological History: No Psychological Hx Reported Smoking Status: Former smoker Past Alcohol Use History: None Reported Past Drug Use History: None Reported - Past Family History Mother History Unknown: Yes Father Family Medical History: Congestive Heart Failure (CHF), Hypertension Medications and Allergies Home Medications Medication Instructions Recorded Confirmed Type Albuterol Nebulized [Ventolin 3 ml INHALATION RT-QID 10/03/22 10/03/22 History Nebulized] Albuterol Sulfate [Ventolin HFA] 2 puff INHALATION RT-QID PRN 10/03/22 10/03/22 History Atorvastatin Calcium [Lipitor] 80 mg PO DAILY 10/03/22 10/03/22 History Budesonide-Formot 160-4.5 Mcg 1 puff INHALATION RT-BID 10/03/22 10/03/22 History [Symbicort 160-4.5 Mcg Inhaler] Cyclobenzaprine [Flexeril] 10 mg PO TID PRN 10/03/22 10/03/22 History Ergocalciferol [Vitamin D2 (1250 2,500 mcg PO Q28D 10/03/22 10/03/22 History Mcg = 63695 Iu)] Ibuprofen [Motrin] 800 mg PO QID 10/03/22 10/03/22 History Ketotifen 0.025% Ophth Soln 1 drop BOTH EYES BID 10/03/22 10/03/22 History [Zaditor] Loratadine [Claritin] 10 mg PO DAILY 10/03/22 10/03/22 History Metoclopramide [Reglan] 10 mg PO TID PRN 10/03/22 10/03/22 History Montelukast [Singulair] 10 mg PO HS 10/03/22 10/03/22 History Naloxegol Oxalate [Movantik] 25 mg PO DAILY 10/03/22 10/03/22 History Naproxen [Naprosyn] 500 mg PO BID-W/MEALS 10/03/22 10/03/22 History Omeprazole [PriLOSEC] 20 mg PO BID 10/03/22 10/03/22 History Ondansetron [Zofran] 4 mg PO DAILY 10/03/22 10/03/22 History Potassium Chloride [Klor-Con M20] 20 meq PO BID 10/03/22 10/03/22 History QUEtiapine FUMARATE [QUEtiapine 300 mg PO HS 10/03/22 10/03/22 History FUMARATE ER] Sucralfate [Carafate] 1 gm PO QID 10/03/22 10/03/22 History methocarbamoL [Methocarbamol] 500 mg PO TID 10/03/22 10/03/22 History rOPINIRole HCL 0.25 mg PO HS 10/03/22 10/03/22 History Allergies Allergy/AdvReac Type Severity Reaction Status Date / Time No Known Allergies Allergy Verified 10/03/22 09:17 Surgical - Exam Vital Signs Temp Pulse Resp BP Pulse Ox 98.4 F 91 20 133/89 98 10/02/22 23:48 10/02/22 23:48 10/02/22 23:48 10/02/22 23:48 10/02/22 23:48 General appearance: The patient is alert, oriented, appears in no acute distress. HET: Head is normocephalic and atraumatic. Pupils are equal and reactive. Neck: Supple without lymphadenopathy. Trachea midline. Heart: Regular. Lungs: Equal expansion, normal respiratory effort. Abdomen: Soft, nontender, nondistended. Extremities: Normal skin color and turgor. No cyanosis, rash, ulceration, clubbing, or edema. Radial pulses +2 bilaterally. Neurological: Patient is alert and oriented 3. Patient speech is fluent, she is able to follow commands. Patient has facial symmetry, tongue protrudes midline. She does have a mild right upper and lower extremity weakness, 3/5. Results - Labs 10/03/22 00:05 10/03/22 00:05 Abnormal Lab Results - Last 24 Hours (Table) 10/04/22 Range/Units 09:45 Magnesium 1.5 L (1.6-2.3) mg/dL Diabetes panel 10/03/22 Range/Units 00:05 Hemoglobin A1c 4.9 (0.0-6.0) % Assessment and Plan Assessment: 1. Right upper and lower extremity weakness 2. 50-69% left ICA stenosis per carotid duplex 3. Former smoker 4. Hypokalemia 5. Hypomagnesemia Plan: 1. Replace pending exam and potassium per protocol 2. CT angiogram head and neck ordered 3. Continue recommendations from neurology 4. Discussed with patient we recommend outpatient follow-up for left ICA stenosis 5. Agree with PT OT Thank you for this consultation, we will continue to follow. The impression and plan of care has been dictated as directed. I performed a history and examination of this patient, discussed the same with the dictator. I agree with the dictator's note ,documented as a scribe. Any additional findings or plans will be noted.
[2022-10-04 15:12] LABS: Chol/HDL Ratio 2.03 Ratio; LDL Cholesterol,Calculated 24.2 mg/dL (0.0-131.0)
--- NOTE | 2022-10-04 16:59 | CT ---
EXAMINATION TYPE: CT angio head neck CT DLP: 316.2 mGycm, Automated exposure control for dose reduction was used. DATE OF EXAM: 10/04/2022 4:39 PM COMPARISON: Same day CT.. CLINICAL INDICATION:Female, 62 years old with history of right sided weakness, left ICA stenosis; , r ight sided weakness TECHNIQUE: Axially acquired helical CT angiogram of the head and neck was obtained with contrast. Axi al images are supplemented with 3D reconstructions which were post-[facility] at [facility]. NASCET criteria used. Contrast used:65cc mL of Isovue 370 with IV Contrast, Oral contrast used: None. FINDINGS: CTA HEAD: No evidence of acute intracranial hemorrhage, mass effect, or midline shift. The ventricles, sulci, a nd cisterns are unremarkable. The visualized portions of the internal carotid arteries, middle cerebral arteries, anterior cerebral arteries, and posterior cerebral arteries are patent. The basilar and vertebral arteries are patent. CTA NECK: Right Carotid System: The common carotid artery and external carotid artery are patent. The carotid bifurcation demonstrate s no evidence of hemodynamically significant stenosis. The remaining portions of the internal carotid artery demonstrate normal size without significant narrowing. Left Carotid System: The common carotid artery and external carotid artery are patent. The carotid bifurcation demonstrate s no evidence of hemodynamically significant stenosis. The remaining portions of the internal carotid artery demonstrate normal size without significant narrowing. Vertebral arteries are patent without evidence hemodynamically significant stenosis. There is a three-vessel aortic arch. The origins of the great vessels are patent. No evidence of hemo dynamically significant stenosis. Emphysema changes are seen throughout the lungs. Enlarged heterogenous thyroid gland. IMPRESSION: 1. No evidence of dissection of the cervical internal carotid arteries or vertebral arteries or any evidence of significant stenosis at the carotid bifurcations. 2. No evidence of intracranial high-grade stenosis or intracranial aneurysm. 3. Mild emphysema changes. 4. Large thyroid gland consider further evaluation with ultrasound as clinically warranted.
[2022-10-04] MEDS: MONTELUKAST 10 MG TAB PO SCH (20:54)
[2022-10-05] MEDS: PANTOPRAZOLE 40 MG TABLET PO SCH ×2 (06:21→16:53)
[2022-10-05] MEDS: SODIUM CHLORIDE 0.9% 1,000 ML IV SCH ×3 (06:21→23:30)
[2022-10-05] MEDS: POTASSIUM CHLORIDE ER 20 MEQ TAB.ER PO SCH ×2 (08:51→20:26)
[2022-10-05] MEDS: QUEtiapine 50 MG TAB PO SCH ×2 (08:51→23:13)
[2022-10-05] MEDS: SUCRALFATE 1 GM TAB PO SCH ×4 (08:51→20:26)
[2022-10-05] MEDS: ASPIRIN 81 MG PO SCH (08:51)
[2022-10-05] MEDS: HYDROcodone/APAP 5-325MG 1 EACH TAB PO PRN ×2 (08:51→23:13)
[2022-10-05] MEDS: ONDANSETRON 4 MG TAB PO SCH (08:51)
[2022-10-05] MEDS: HEPARIN SODIUM,PORCINE/PF 5,000 UNIT/0.5 ML SYRINGE SQ SCH ×3 (08:52→23:28)
[2022-10-05] MEDS: CLOPIDOGREL 75 MG TAB PO SCH (08:53)
[2022-10-05] MEDS: KETOTIFEN 0.025% OPHTH DROPS 5 ML BTL BOTH EYES SCH ×2 (08:53→20:26)
[2022-10-05] MEDS: ALBUTEROL NEBULIZED 2.5 MG/3 ML INHALATION SCH ×4 (09:06→19:24)
[2022-10-05] MEDS: SYMBICORT 160-4.5 MCG INHALER INHALATION SCH ×2 (09:06→19:24)
--- NOTE | 2022-10-05 11:16 | PN ---
PROGRESS NOTE DATE OF SERVICE: 10/04/2022 CHIEF COMPLAINT: Syncope and right-sided hypoesthesias. HISTORY OF PRESENT ILLNESS: This lady is still complaining of some weakness and dysesthesias in the right side. She has had no chest pain, headache, or any other changes such as abnormalities in the cranial nerves. PHYSICAL EXAMINATION: GENERAL: She is pale and chronically ill in appearance. NECK: Neck veins are not distended. CHEST: Clear. CARDIAC: Normal. ABDOMEN: Soft and nontender. EXTREMITIES: Right-sided weakness is minimal. IMPRESSION: 1. Syncope with right-sided weakness and hypoesthesias. 2. Recent episode of ileus or bowel obstruction. PLAN: Continue workup and increase activity. She will be referred to PT and OT as well as discharge planning. CHRISTIANO / ANT: [id number] /
--- NOTE | 2022-10-05 11:39 | P.PN ---
Subjective Progress Note Date: 10/05/22 Principal diagnosis: Right-sided weakness, carotid stenosis She was seen and examined today as a follow-up for right-sided weakness, TIA and left ICA stenosis per carotid duplex. Patient states right upper and lower extremity are getting stronger. However still some weakness. No other focal deficits. Patient had a CT angiogram of the head and neck yesterday that shows no hemodynamically significant stenosis of the carotid bifurcations bilaterally. Objective - Vital Signs Vital signs: Vital Signs Temp 98.0 F 10/05/22 03:51 Pulse 89 10/05/22 03:51 Resp 18 10/05/22 03:51 BP 110/72 10/05/22 03:51 Pulse Ox 95 10/05/22 03:51 FiO2 Intake & Output 10/04/22 10/05/22 10/05/22 18:59 06:59 18:59 Intake Total 0 800 0 Output Total 1800 2075 Balance -1800 -1275 0 Weight 46.72 kg Intake: Intake, IV Titration 800 Amount Sodium Chloride 0.9% 1, 800 000 ml @ 100 mls/hr IV . Q10H MANOJ Rx#:[id number] Oral 0 0 Output: Urine 1800 5 Other: Voiding Method External Catheter External Catheter - Labs CBC & Chem 7: 10/03/22 00:05 10/03/22 00:05 Labs: Abnormal Lab Results - Last 24 Hours (Table) 10/04/22 Range/Units 09:45 Magnesium 1.5 L (1.6-2.3) mg/dL Assessment and Plan Assessment: 1. Right upper and lower extremity weakness 2. 50-69% left ICA stenosis per carotid duplex discordant findings upon CT angiogram head and neck showing no hemodynamically significant stenosis of carotid bifurcations bilaterally 3. Former smoker 4. Hypokalemia 5. Hypomagnesemia Plan: 1. Replace pending exam and potassium per protocol 2. CT angiogram head and neck reviewed 3. Continue recommendations from neurology 4. Discussed with patient we recommend outpatient follow-up for left ICA stenosis 5. Agree with PT OT Thank you for this consultation, we will continue to follow. The impression and plan of care has been dictated as directed. I performed a history and examination of this patient, discussed the same with the dictator. I agree with the dictator's note ,documented as a scribe. Any additional findings or plans will be noted.
--- NOTE | 2022-10-05 14:31 | P.PN ---
Subjective Progress Note Date: 10/04/22 Patient was seen for a follow-up. Patient says she is feeling much better. Patient denies any headache. She states that her right leg is still slightly weak. She is able to use the right arm well. No other neurological issues. Objective - Vital Signs Vital signs: Vital Signs Temp 98.7 F 10/04/22 10:08 Pulse 91 10/04/22 16:17 Resp 16 10/04/22 16:17 BP 124/78 10/04/22 16:17 Pulse Ox 97 10/04/22 16:17 FiO2 Intake & Output 10/04/22 10/04/22 10/05/22 06:59 18:59 06:59 Intake Total 500 0 Output Total 500 1800 Balance 0 -1800 Weight 46.72 kg Intake: Intake, IV Titration 500 Amount Sodium Chloride 0.9% 1, 500 000 ml @ 100 mls/hr IV . Q10H [facility] Rx#:[id number] Oral 0 Output: Urine 500 1800 Other: Voiding Method External Catheter External Catheter # Voids 1 - Exam Patient's mental status, speech and language functions are normal. Cranial nerves are normal. Muscle strength revealed no obvious pronator drift on the right. The strength in the right arm is almost as good as the left. She appears to be somewhat weak in the right hip flexion, but better in the right ankle dorsiflexion. No ataxia. - Labs CBC & Chem 7: 10/03/22 00:05 10/03/22 00:05 Labs: Abnormal Lab Results - Last 24 Hours (Table) 10/04/22 Range/Units 09:45 Magnesium 1.5 L (1.6-2.3) mg/dL Assessment and Plan Assessment: * 62-year-old female admitted with a syncopal spell followed by right hemiparesis. Patient still has right hemiparesis, but the MRI of the brain is negative for an acute stroke. * Moderate left ICA stenosis for ultrasound, negative CTA. * X tobacco use Plan: * Clinically it appears patient has an acute stroke. However MRI of the brain came back negative for an acute stroke. Uncertain some functional component. * MRI of the brain revealed no evidence of an acute intracranial mass or acute/subacute infarct. I personally reviewed MRI, I agree with the findings. There is no evidence of an acute stroke. * Carotid Doppler revealed 50-69% stenosis of the left carotid bifurcation. Less than 50% stenosis of the right carotid bifurcation. Antegrade flow in both vertebral arteries. Left ICA stenosis probably symptomatic. * Vascular surgical input appreciated. * CTA of head and neck showed no stenosis of the intracranial or extracranial vessels. * 2-D echo with bubble study, rule out PFO outstanding. * Hemoglobin A1c 4.9 * Fasting lipid panel with cholesterol 92, LDL 24, HDL 45 and triglycerides 111. Patient was on Lipitor 80 mg daily at home. We will decrease Lipitor to 20 mg daily. * Telemetry monitoring * Patient started on aspirin. Patient was not taking any antiplatelet medication at home. We will place on DAP for 21 days, and then stop Plavix and continue aspirin indefinitely. * PT OT, speech therapy * DVT prophylaxis: Patient on heparin 5000 subcu every 8 hours. * Optimize control of blood pressure to normotensive level.
[2022-10-05 16:54] LABS: Basophils # (A) 0.1 k/uL (0-0.2); Basophils % (A) 1 %; Eosinophils # (A) 0.2 k/uL (0-0.7); Eosinophils % (A) 2 %; HCT 30.7 % (34.0-46.0); HGB 9.5 gm/dL (11.4-16.0); Hypochromasia Moderate; Lymphocytes # (A) 1.1 k/uL (1.0-4.8); Lymphocytes % (A) 10 %; MCH 28.2 pg (25.0-35.0); MCV 91.2 fL (80.0-100.0); Monocytes # (A) 0.5 k/uL (0-1.0); Monocytes % (A) 4 %; Neutrophils # (A) 9.5 k/uL (1.3-7.7); Neutrophils % (A) 83 %; Platelet Count 776 k/uL (150-450); RBC 3.37 m/uL (3.80-5.40); RDW 15.6 % (11.5-15.5); WBC 11.5 k/uL (3.8-10.6)
[2022-10-05 17:17] LABS: ALT 16 U/L (4-34); AST 21 U/L (14-36); African American GFR (CKD) >90 (>60 ml/min/1.73 sqM); Albumin 1.9 g/dL (3.5-5.0); Alkaline Phosphatase 125 U/L (38-126); Anion Gap 3 mmol/L; Blood Urea Nitrogen 2 mg/dL (7-17); Calcium 8.2 mg/dL (8.4-10.2); Carbon Dioxide 23 mmol/L (22-30); Chloride 111 mmol/L (98-107); Glucose 106 mg/dL (74-99); Non-African American GFR(CKD) >90 (>60 ml/min/1.73 sqM); Potassium 3.3 mmol/L (3.5-5.1); Sodium 137 mmol/L (137-145); Total Bilirubin 0.3 mg/dL (0.2-1.3); Total Protein 4.2 g/dL (6.3-8.2)
[2022-10-05] MEDS: MONTELUKAST 10 MG TAB PO SCH (20:26)
--- NOTE | 2022-10-06 02:28 | PN ---
PROGRESS NOTE DATE OF SERVICE: 10/05/2022 CHIEF COMPLAINT: Syncope and right-sided weakness. HISTORY OF PRESENT ILLNESS: This lady seems stable. She does have a 60% to 70% narrowing in the left carotid, which probably does not qualify her for surgery at this point. She is doing well with improvement in the right-sided hypoesthesias and weakness. She has no headaches. CT and MRI were normal. PHYSICAL EXAMINATION: CHEST: Clear. CARDIAC: Normal. ABDOMEN: Soft and nontender. IMPRESSION: 1. Left-sided transient ischemic attack or cerebrovascular accident. 2. Atherosclerotic cardiovascular disease. 3. Atherosclerosis of the left carotid. PLAN: Await any further recommendations from Neurology and Vascular Surgery. She could probably go home otherwise. Her WBC remains elevated and this will be explored. Her potassium is also slightly low. MMODL / IJN: [id number] /
[2022-10-06] MEDS: PANTOPRAZOLE 40 MG TABLET PO SCH ×2 (06:29→16:10)
[2022-10-06] MEDS: HEPARIN SODIUM,PORCINE/PF 5,000 UNIT/0.5 ML SYRINGE SQ SCH ×3 (08:16→22:52)
[2022-10-06] MEDS: POTASSIUM CHLORIDE ER 20 MEQ TAB.ER PO SCH ×2 (08:17→20:08)
[2022-10-06] MEDS: QUEtiapine 50 MG TAB PO SCH ×2 (08:17→22:52)
[2022-10-06] MEDS: SUCRALFATE 1 GM TAB PO SCH ×4 (08:17→20:07)
[2022-10-06] MEDS: CLOPIDOGREL 75 MG TAB PO SCH (08:17)
[2022-10-06] MEDS: ONDANSETRON 4 MG TAB PO SCH (08:17)
[2022-10-06] MEDS: KETOTIFEN 0.025% OPHTH DROPS 5 ML BTL BOTH EYES SCH ×2 (08:17→20:08)
[2022-10-06] MEDS: ASPIRIN 81 MG PO SCH (08:17)
[2022-10-06] MEDS: HYDROcodone/APAP 5-325MG 1 EACH TAB PO PRN ×2 (08:17→22:52)
[2022-10-06 08:56] LABS: HGB 9.6 gm/dL (11.4-16.0); Hypochromasia Moderate; MCH 28.5 pg (25.0-35.0); MCV 91.9 fL (80.0-100.0); Mean Platelet Volume 7.3; Platelet Count 820 k/uL (150-450); RBC 3.37 m/uL (3.80-5.40); RDW 15.6 % (11.5-15.5); WBC 10.9 k/uL (3.8-10.6)
[2022-10-06 08:58] LABS: ALT 14 U/L (4-34); AST 18 U/L (14-36); African American GFR (CKD) >90 (>60 ml/min/1.73 sqM); Albumin 1.9 g/dL (3.5-5.0); Alkaline Phosphatase 125 U/L (38-126); Anion Gap 2 mmol/L; Blood Urea Nitrogen 2 mg/dL (7-17); Calcium 8.5 mg/dL (8.4-10.2); Carbon Dioxide 26 mmol/L (22-30); Chloride 110 mmol/L (98-107); Glucose 92 mg/dL (74-99); Non-African American GFR(CKD) >90 (>60 ml/min/1.73 sqM); Potassium 3.9 mmol/L (3.5-5.1); Sodium 138 mmol/L (137-145); Total Bilirubin 0.5 mg/dL (0.2-1.3); Total Protein 4.2 g/dL (6.3-8.2)
--- NOTE | 2022-10-06 09:36 | P.PN ---
Subjective Progress Note Date: 10/06/22 Principal diagnosis: Right-sided weakness, carotid stenosis Patient seen and examined resting comfortably. No acute changes through the night. right-sided weakness improving. Objective - Vital Signs Vital signs: Vital Signs Temp 98 F 10/06/22 08:22 Pulse 98 10/06/22 08:22 Resp 17 10/06/22 08:22 BP 124/67 10/06/22 08:22 Pulse Ox 96 10/06/22 08:22 FiO2 Intake & Output 10/05/22 10/06/22 10/06/22 18:59 06:59 18:59 Intake Total 0 2970 118 Output Total 1200 2700 Balance -1200 270 118 Intake: Intake, IV Titration 2000 Amount Sodium Chloride 0.9% 1, 2000 000 ml @ 100 mls/hr IV . Q10H [facility] Rx#:[id number] Oral 0 970 118 Output: Urine 1200 2700 Other: Voiding Method External Catheter External Catheter - Exam General appearance: The patient is alert, oriented, appears in no acute distress. HET: Head is normocephalic and atraumatic. Pupils are equal and reactive. Neck: Supple without lymphadenopathy. Trachea midline. No audible carotid bruit. Heart: Regular. Lungs: Equal expansion, normal respiratory effort. Abdomen: Soft, nontender, nondistended. Extremities: Normal skin color and turgor. No cyanosis, rash, ulceration, clubbing, or edema. Neurological: she is alert and oriented 3. Minimal weakness to right upper and lower extremity. Otherwise no other focal deficits noted. - Labs CBC & Chem 7: 10/06/22 08:10 10/06/22 08:10 Labs: Abnormal Lab Results - Last 24 Hours (Table) 10/05/22 10/05/22 10/06/22 Range/Units 16:41 16:41 08:10 WBC 11.5 H 10.9 H (3.8-10.6) k/uL RBC 3.37 L 3.37 L (3.80-5.40) m/uL Hgb 9.5 L 9.6 L (11.4-16.0) gm/dL Hct 30.7 L 31.0 L (34.0-46.0) % RDW 15.6 H 15.6 H (11.5-15.5) % Plt Count 776 H 820 H (150-450) k/uL Neutrophils # 9.5 H (1.3-7.7) k/uL Potassium 3.3 L (3.5-5.1) mmol/L Chloride 111 H (98-107) mmol/L BUN 2 L (7-17) mg/dL Creatinine 0.39 L (0.52-1.04) mg/dL Glucose 106 H (74-99) mg/dL Calcium 8.2 L (8.4-10.2) mg/dL Total Protein 4.2 L (6.3-8.2) g/dL Albumin 1.9 L (3.5-5.0) g/dL 10/06/22 Range/Units 08:10 WBC (3.8-10.6) k/uL RBC (3.80-5.40) m/uL Hgb (11.4-16.0) gm/dL Hct (34.0-46.0) % RDW (11.5-15.5) % Plt Count (150-450) k/uL Neutrophils # (1.3-7.7) k/uL Potassium (3.5-5.1) mmol/L Chloride 110 H (98-107) mmol/L BUN 2 L (7-17) mg/dL Creatinine 0.41 L (0.52-1.04) mg/dL Glucose (74-99) mg/dL Calcium (8.4-10.2) mg/dL Total Protein 4.2 L (6.3-8.2) g/dL Albumin 1.9 L (3.5-5.0) g/dL Assessment and Plan Assessment: 1. Right upper and lower extremity weakness 2. 50-69% left ICA stenosis per carotid duplex discordant findings upon CT angiogram head and neck showing no hemodynamically significant stenosis of carotid bifurcations bilaterally 3. Former smoker 4. Hypokalemia 5. Hypomagnesemia Plan: 1. Replace pending exam and potassium per protocol 2. CT angiogram head and neck reviewedwith no significant hemodynamic stenosis at 3. Continue recommendations from neurology 4. Discussed with patient we recommend outpatient follow-up for left ICA stenosis 5. Agree with PT OT Thank you for this consultation, carotid bifurcations bilaterallypatient is carlos ared for discharge from vascular surgery. We will sign off at this time. The impression and plan of care has been dictated as directed. I performed a history and examination of this patient, discussed the same with the dictator. I agree with the dictator's note ,documented as a scribe. Any additional findings or plans will be noted.
[2022-10-06] MEDS: ALBUTEROL NEBULIZED 2.5 MG/3 ML INHALATION SCH ×4 (09:41→21:23)
[2022-10-06] MEDS: SYMBICORT 160-4.5 MCG INHALER INHALATION SCH ×2 (09:41→21:23)
--- NOTE | 2022-10-06 10:16 | P.PN ---
Subjective Progress Note Date: 10/05/22 Patient was seen for a follow-up. Patient says she is feeling much better. Patient denies any headache. Her strength is almost returned back to baseline. Objective - Vital Signs Vital signs: Vital Signs Temp 98 F 10/06/22 08:22 Pulse 102 H 10/06/22 09:51 Resp 17 10/06/22 08:22 BP 124/67 10/06/22 08:22 Pulse Ox 96 10/06/22 08:22 FiO2 Intake & Output 10/05/22 10/06/22 10/06/22 18:59 06:59 18:59 Intake Total 0 2970 118 Output Total 1200 2700 Balance -1200 270 118 Intake: Intake, IV Titration 2000 Amount Sodium Chloride 0.9% 1, 2000 000 ml @ 100 mls/hr IV . Q10H [facility] Rx#:[id number] Oral 0 970 118 Output: Urine 1200 2700 Other: Voiding Method External Catheter External Catheter - Exam Patient's mental status, speech and language functions are normal. Cranial nerves are normal. Muscle strength revealed no pronator drift. The strength is back to normal. She is moving freely her extremities. Sensations are equal. - Labs CBC & Chem 7: 10/06/22 08:10 10/06/22 08:10 Labs: Abnormal Lab Results - Last 24 Hours (Table) 10/05/22 10/05/22 10/06/22 Range/Units 16:41 16:41 08:10 WBC 11.5 H 10.9 H (3.8-10.6) k/uL RBC 3.37 L 3.37 L (3.80-5.40) m/uL Hgb 9.5 L 9.6 L (11.4-16.0) gm/dL Hct 30.7 L 31.0 L (34.0-46.0) % RDW 15.6 H 15.6 H (11.5-15.5) % Plt Count 776 H 820 H (150-450) k/uL Neutrophils # 9.5 H (1.3-7.7) k/uL Potassium 3.3 L (3.5-5.1) mmol/L Chloride 111 H (98-107) mmol/L BUN 2 L (7-17) mg/dL Creatinine 0.39 L (0.52-1.04) mg/dL Glucose 106 H (74-99) mg/dL Calcium 8.2 L (8.4-10.2) mg/dL Total Protein 4.2 L (6.3-8.2) g/dL Albumin 1.9 L (3.5-5.0) g/dL 10/06/22 Range/Units 08:10 WBC (3.8-10.6) k/uL RBC (3.80-5.40) m/uL Hgb (11.4-16.0) gm/dL Hct (34.0-46.0) % RDW (11.5-15.5) % Plt Count (150-450) k/uL Neutrophils # (1.3-7.7) k/uL Potassium (3.5-5.1) mmol/L Chloride 110 H (98-107) mmol/L BUN 2 L (7-17) mg/dL Creatinine 0.41 L (0.52-1.04) mg/dL Glucose (74-99) mg/dL Calcium (8.4-10.2) mg/dL Total Protein 4.2 L (6.3-8.2) g/dL Albumin 1.9 L (3.5-5.0) g/dL Assessment and Plan Assessment: * 62-year-old female admitted with a syncopal spell followed by right hemipa resis. Patient had persistent right hemiparesis, but the MRI of the brain is negative for an acute stroke. Right hemiparesis finally has resolved. * No evidence of carotid disease per CTA. * X tobacco use Plan: * Clinically it appears patient has an acute stroke. However MRI of the brain came back negative for an acute stroke. Uncertain some functional component. The right hemiparesis has resolved. * MRI of the brain revealed no evidence of an acute intracranial mass or acute/subacute infarct. I personally reviewed MRI, I agree with the findings. There is no evidence of an acute stroke. * Carotid Doppler revealed 50-69% stenosis of the left carotid bifurcation. Less than 50% stenosis of the right carotid bifurcation. Antegrade flow in both vertebral arteries. * CTA of head and neck showed no stenosis of the intracranial or extracranial vessels. * Vascular surgical input appreciated. Discordant findings between carotid Doppler and CTA of the neck. Vascular surgery recommending outpatient follow- up. * 2-D echo with bubble study, rule out PFO outstanding. * Hemoglobin A1c 4.9 * Fasting lipid panel with cholesterol 92, LDL 24, HDL 45 and triglycerides 111. Patient was on Lipitor 80 mg daily at home. We will decrease Lipitor to 40 mg daily. * Telemetry monitoring showing sinus rhythm in the 90s. No other arrhythmia. * Patient started on aspirin. Patient was not taking any antiplatelet medication at home. We will place on DAP for 21 days, and then stop Plavix and continue aspirin 81 mg indefinitely. * PT OT, speech therapy * DVT prophylaxis: Patient on heparin 5000 subcu every 8 hours. * Optimize control of blood pressure to normotensive level. * Neurologically clear, if the echo comes back negative.
--- NOTE | 2022-10-06 12:25 | CDI ---
Documentation Clarification Form Date: 10/06/2022 12:08:25 PM From: Luli BarrettSTEPHANIE coppola, CCDS Admit Date: 10/03/2022 02:42:00 AM Patient Name: Sandra Riggs Visit Number: [id number] Discharge Date: ATTENTION: The Clinical Documentation Specialists (CDI) and [facility] Coding Staff appreciate your assistance in clarifying documentation. Please respond to the clarification below the line at the bottom and electronically sign. The CDI & [facility] Coding staff will review the response and follow-up if needed. Please note: Queries are made part of the Legal Health Record. If you have any questions, please contact the author of this message via ITS. Dr. Cameron Guillory: Please clarify the following documentation regarding CVA, TIA or other diagnosis per your professional opinion and the clinical evidence: Per the 10/05 Attending Physician Progress Note: Left side TIA or CVA. Per the 10/05 Neurology Progress Note: Admit with syncopal spell followed by right hemiparesis. Patient had persistent right hemiparesis but the MRI Brain is negative for an acute stroke, right hemiparesis finally has resolved. Plan: Clinically it appears the patient has an acute stroke. History/Risk Factors per the 10/03 H/P: Heavy smoker in the past. General debility & Failure to thrive. History of GI bleed and recent Ileus or bowel obstruction. Clinical Indicators: Recently admitted to [facility] for workup of small bowel obstruction that turned out to be an ileus, discharged to home. Patient fell and then passed out at home. Presented to the ED via EMS after syncopal episode w/LOC. Currently being treated for a UTI. Admit with Syncope, Acute right side muscle weakness, Peripheral edema, Hypomagnesemia and Hypokalemia. 10/02 VS: T 98.4, P 91, R 20, BP 133/89, PO 98 RA, BMI: 20.1 10/02 LAB: WBC 19.5, RBC 3.57, Hgb 10.1, Hct 32.4, Plt Ct 683, Neutrophils 17.6, Lymphocytes 0.9; D Dimer 1.48; Na 136, K 3.2, BUN 4, Creatinine 0.42, Glucose 100, Magnesium 1.5, Alk Phos 131, Total Protein 5.1, Albumin 2.5 10/03 CT Brain: negative. 10/03 CXR: normal chest. 10/03 CT Chest: No PE, Mild pulmonary emphysema. 10/03 Bilateral lower ext US: No DVTs, subcutaneous edema bilaterally. 10/03 Carotid US: 50-60% stenosis left carotid bifurcation, <50% stenosis right carotid bifurcation. 10/03 MRI Brain: No evidence of intracranial mass or acute/subacute infarct. 10/04 CT Angio Head/Neck: No evidence of issection of the cervical ICA or stenosis, Mild emphysema changes. Large thyroid gland. Treatment 10/03: Blood glucose monitoring, Neurology consult, Heart healthy diet, Speech Therapy, Physical/Occupational Therapy, IV Mag Sulf/Dextrose 100 mls @ 100 mls/hr q1H, po K Dur 20 meq q1H, po Aspirin 325 mg x1, po Tylenol 650 mg q6H/prn, INH Ventolin 2.5 mg q2H/prn, INH Duoneb 3 ml QID/prn, IV Na Chl 1,000 mls @ 100 mla/hr q10H, Heparin 5,000 unts sq q8H, INH Symbicort 1 puff BID. Can you please clarify the following : Syncope Episode due to: [ ] CVA ruled in [ ] CVA ruled out [ ] TIA ruled in [ ] TIA ruled out [ ] Other cause of Syncopal Episode due to, please specify: [ ] Other, please specify: [ ] Unable to determine (Template Last Revised: December 2020) MTDD
[2022-10-06] MEDS: SODIUM CHLORIDE 0.9% 1,000 ML IV SCH ×2 (15:53→22:55)
--- NOTE | 2022-10-06 17:18 | XR ---
EXAMINATION TYPE: XR Hip Complete RT DATE OF EXAM: 10/06/2022 COMPARISON: None HISTORY: Pain TECHNIQUE: Two-view right hip FINDINGS: Femoral head articulate to the acetabulum. No acute fracture or dislocation of the right fe mur is evident. The medial aspect of the pubic rami is somewhat indistinct. Is unclear whether this is related to ove rlying fecal debris within the herniation or osseous abnormality. Correlate with location of the mackenzie ent's pain. Consider dedicated pelvis views IMPRESSION: 1. No acute fracture of the right hip. 2. Hernia with fecal debris overlying the medial pubic ramus is suspected. Recommend AP pelvis for cl oser evaluation of the pelvis.
[2022-10-06] MEDS: MONTELUKAST 10 MG TAB PO SCH (20:07)
[2022-10-06] MEDS: ATORVASTATIN 40 MG TAB PO SCH (20:07)
--- NOTE | 2022-10-07 04:22 | PN ---
PROGRESS NOTE CHIEF COMPLAINT: Right-sided hypoesthesias and weakness. HISTORY OF PRESENT ILLNESS: This lady is just about the same. The right side remains weak and hypoesthetic. She is getting physical therapy. Discharge plan will have to be activated. She is not likely to be a good candidate to go home considering how she has been functioning at home. MMODL / IJN: [id number] /
[2022-10-07] MEDS: SODIUM CHLORIDE 0.9% 1,000 ML IV SCH ×2 (06:53→17:11)
[2022-10-07] MEDS: PANTOPRAZOLE 40 MG TABLET PO SCH ×2 (06:53→17:13)
[2022-10-07] MEDS: ALBUTEROL NEBULIZED 2.5 MG/3 ML INHALATION SCH ×4 (07:45→20:25)
[2022-10-07] MEDS: SYMBICORT 160-4.5 MCG INHALER INHALATION SCH ×2 (07:45→20:25)
[2022-10-07] MEDS: ASPIRIN 81 MG PO SCH (08:22)
[2022-10-07] MEDS: HEPARIN SODIUM,PORCINE/PF 5,000 UNIT/0.5 ML SYRINGE SQ SCH ×3 (08:22→23:23)
[2022-10-07] MEDS: POTASSIUM CHLORIDE ER 20 MEQ TAB.ER PO SCH ×2 (08:22→23:16)
[2022-10-07] MEDS: ONDANSETRON 4 MG TAB PO SCH (08:22)
[2022-10-07] MEDS: SUCRALFATE 1 GM TAB PO SCH ×4 (08:22→23:15)
[2022-10-07] MEDS: CLOPIDOGREL 75 MG TAB PO SCH (08:22)
[2022-10-07] MEDS: QUEtiapine 50 MG TAB PO SCH ×2 (08:22→23:16)
[2022-10-07] MEDS: HYDROcodone/APAP 5-325MG 1 EACH TAB PO PRN ×2 (08:22→23:16)
[2022-10-07] MEDS: KETOTIFEN 0.025% OPHTH DROPS 5 ML BTL BOTH EYES SCH ×2 (08:23→23:23)
--- NOTE | 2022-10-07 11:07 | P.PN ---
Subjective Progress Note Date: 10/06/22 Patient was seen for a follow-up. Patient says she is feeling much better. Patient denies any headache. Her strength is returned back to baseline. Patient complaining of right anterior groin pain. Objective - Vital Signs Vital signs: Vital Signs Temp 97.7 F 10/06/22 16:00 Pulse 100 10/06/22 16:00 Resp 16 10/06/22 16:00 BP 121/66 10/06/22 16:00 Pulse Ox 96 10/06/22 16:00 FiO2 Intake & Output 10/05/22 10/06/22 10/06/22 18:59 06:59 18:59 Intake Total 0 2970 118 Output Total 1200 2700 500 Balance -1200 270 -382 Intake: Intake, IV Titration 2000 Amount Sodium Chloride 0.9% 1, 2000 000 ml @ 100 mls/hr IV . Q10H [facility] Rx#:[id number] Oral 0 970 118 Output: Urine 1200 2700 500 Other: Voiding Method External Catheter External Catheter External Catheter - Exam Patient's mental status, speech and language functions are normal. Cranial nerves are normal. Muscle strength revealed no pronator drift. The strength is back to normal in the upper extremities. In the lower extremity, ankle dorsiflexion is normal. Hip flexion is 2 on the right, 3+4- on the left. Patient has bilateral peripheral edema, left more than right. Sensations are equal. No ataxia Examination of the hip was not essentially abnormal. - Labs CBC & Chem 7: 10/06/22 08:10 10/06/22 08:10 Labs: Abnormal Lab Results - Last 24 Hours (Table) 10/05/22 10/05/22 10/06/22 Range/Units 16:41 16:41 08:10 WBC 11.5 H 10.9 H (3.8-10.6) k/uL RBC 3.37 L 3.37 L (3.80-5.40) m/uL Hgb 9.5 L 9.6 L (11.4-16.0) gm/dL Hct 30.7 L 31.0 L (34.0-46.0) % RDW 15.6 H 15.6 H (11.5-15.5) % Plt Count 776 H 820 H (150-450) k/uL Neutrophils # 9.5 H (1.3-7.7) k/uL Potassium 3.3 L (3.5-5.1) mmol/L Chloride 111 H (98-107) mmol/L BUN 2 L (7-17) mg/dL Creatinine 0.39 L (0.52-1.04) mg/dL Glucose 106 H (74-99) mg/dL Calcium 8.2 L (8.4-10.2) mg/dL Total Protein 4.2 L (6.3-8.2) g/dL Albumin 1.9 L (3.5-5.0) g/dL 10/06/22 Range/Units 08:10 WBC (3.8-10.6) k/uL RBC (3.80-5.40) m/uL Hgb (11.4-16.0) gm/dL Hct (34.0-46.0) % RDW (11.5-15.5) % Plt Count (150-450) k/uL Neutrophils # (1.3-7.7) k/uL Potassium (3.5-5.1) mmol/L Chloride 110 H (98-107) mmol/L BUN 2 L (7-17) mg/dL Creatinine 0.41 L (0.52-1.04) mg/dL Glucose (74-99) mg/dL Calcium (8.4-10.2) mg/dL Total Protein 4.2 L (6.3-8.2) g/dL Albumin 1.9 L (3.5-5.0) g/dL Assessment and Plan Assessment: * 62-year-old female admitted with a syncopal spell followed by right hemiparesis. Patient had persistent right hemiparesis, but the MRI of the brain is negative for an acute stroke. Right hemiparesis finally has resolved. Patient continues to have bilateral hip weakness, right more than left. Patient complaining of pain in the right hip. Rule out arthritis. * No evidence of carotid disease per CTA. * X tobacco use Plan: * Clinically it appears patient has an acute stroke. However MRI of the brain came back negative for an acute stroke. Uncertain some functional component. The right hemiparesis has resolved. Patient continues to have right hip weakness with pain in the right groin. We will check hip x-ray. * MRI of the brain revealed no evidence of an acute intracranial mass or acute/subacute infarct. I personally reviewed MRI, I agree with the findings. There is no evidence of an acute stroke. * Carotid Doppler revealed 50-69% stenosis of the left carotid bifurcation. Less than 50% stenosis of the right carotid bifurcation. Antegrade flow in both vertebral arteries. * CTA of head and neck showed no stenosis of the intracranial or extracranial vessels. * Vascular surgical input appreciated. Discordant findings between carotid Doppler and CTA of the neck. Vascular surgery recommending outpatient follow- up. * 2-D echo with bubble study, rule out PFO outstanding. * Hemoglobin A1c 4.9 * Fasting lipid panel with cholesterol 92, LDL 24, HDL 45 and triglycerides 111. Patient was on Lipitor 80 mg daily at home. We will decrease Lipitor to 40 mg daily. * Telemetry monitoring showing sinus rhythm in the 90s. No other arrhythmia. * Patient started on aspirin. Patient was not taking any antiplatelet medication at home. We will place on DAP for 21 days, and then stop Plavix and continue aspirin 81 mg indefinitely. * Optimize control of blood pressure to normotensive level. * Neurologically clear, if the echo comes back negative. Addendum: Hip x-ray revealed hernia with fecal database overlying the medial pubic ramus is suspected. Recommend AP pelvis for closer evaluation of the pelvis. Will defer to IM.
--- NOTE | 2022-10-07 17:12 | CA ---
Transthoracic Echo Report Name: Sandra Riggs Age: 62 Gender: F : 1960 Exam Date: 10/07/2022 12:22 Exam Location: [place] [facility] Ht (in): 60 Wt (lb): 103 Ordering Physician: Stephanie Torres MD Attending/Referring Phys: Donor Floor Technician Zoe Montaño RDCS Procedure CPT: Indications: stroke/tia Cardiac Hx: Technical Quality: Fair Contrast 1: Agitated Saline Total Dose (mL): 09 Contrast 2: Total Dose (mL): MEASUREMENTS (Male / Female) Normal Values 2D ECHO LV Diastolic Diameter PLAX 2.3 cm 4.2 - 5.9 / 3.9 - 5.3 cm LV Systolic Diameter PLAX 1.8 cm IVS Diastolic Thickness 1.2 cm 0.6 - 1.0 / 0.6 - 0.9 cm LVPW Diastolic Thickness 1.2 cm 0.6 - 1.0 / 0.6 - 0.9 cm LV Relative Wall Thickness 1.0 DOPPLER AV Peak Velocity 122.5 cm/s AV Peak Gradient 6.0 mmHg LVOT Peak Velocity 117.1 cm/s LVOT Peak Gradient 5.5 mmHg MV Area PHT 3.1 cm??? Mitral E Point Velocity 53.6 cm/s Mitral A Point Velocity 78.1 cm/s Mitral E to A Ratio 0.7 MV Deceleration Time 240.9 ms FINDINGS Left Ventricle Mildly increased septal wall thickness. Mildly increased posterior wall thickness. No obvious regional wall motion abnormalities. Left ventricular ejection fraction is estimated at 50 %. Right Ventricle Normal right ventricular size and function. Right Atrium Normal right atrial size. Negative agitated saline bubble study for right to left shunt. Left Atrium Normal left atrial size. Mitral Valve Structurally normal mitral valve. No mitral regurgitation. No mitral stenosis. Aortic Valve Aortic valve not well visualized. No aortic stenosis. No aortic regurgitation. Tricuspid Valve Tricuspid valve not well visualized. Pulmonic Valve Pulmonic valve not well visualized. Pericardium No pericardial effusion. Aorta Normal size aortic root and proximal ascending aorta. CONCLUSIONS Normal LV function Negative bubble study for [id number] shunt Previewed by: Dr. Surendra Crowder MD (Electronically Signed) Final Date: 07 October 2022 17:11
[2022-10-07] MEDS: ATORVASTATIN 40 MG TAB PO SCH (23:15)
[2022-10-07] MEDS: MONTELUKAST 10 MG TAB PO SCH (23:15)
--- NOTE | 2022-10-08 01:50 | P.PN ---
Subjective Progress Note Date: 10/07/22 Patient was seen for a follow-up. Patient says she is feeling much better. Patient denies any headache. Her strength is returned back to baseline. Patient complaining of right anterior groin pain. Objective - Vital Signs Vital signs: Vital Signs Temp 97.6 F 10/07/22 08:28 Pulse 100 10/07/22 11:24 Resp 17 10/07/22 12:00 BP 106/74 10/07/22 12:00 Pulse Ox 100 10/07/22 12:00 FiO2 Intake & Output 10/06/22 10/07/22 10/07/22 18:59 06:59 18:59 Intake Total 118 358 Output Total 500 500 Balance -382 -500 358 Weight 46.72 kg Intake: Oral 118 358 Output: Urine 500 500 Other: Voiding Method External Catheter External Catheter Bedside Commode # Voids 1 2 - Exam Patient's mental status, speech and language functions are normal. Cranial nerves are normal. Muscle strength revealed no pronator drift. The strength is back to normal in the upper extremities. In the lower extremity, ankle dorsiflexion is normal. Hip flexion is 2 on the right, 3+4- on the left. Patient has bilateral peripheral edema, left more than right. Sensations are equal. No ataxia Examination of the hip was not essentially normal. - Labs CBC & Chem 7: 10/06/22 08:10 10/06/22 08:10 Assessment and Plan Assessment: * 62-year-old female admitted with a syncopal spell followed by right hemiparesis. Patient had persistent right hemiparesis, but the MRI of the brain is negative for an acute stroke. Right hemiparesis finally has resolved. Patient continues to have bilateral hip weakness, right more than left. Patient complaining of pain in the right hip. X-ray of the right hip revealed hernia with fecal debris is overlying the medial pubic ramus is suspected. * No evidence of carotid disease per CTA. * X tobacco use Plan: * Clinically it appears patient has an acute stroke. However MRI of the brain came back negative for an acute stroke. Uncertain some functional component. The right hemiparesis has resolved. * MRI of the brain revealed no evidence of an acute intracranial mass or acute/subacute infarct. I personally reviewed MRI, I agree with the findings. There is no evidence of an acute stroke. * Carotid Doppler revealed 50-69% stenosis of the left carotid bifurcation. Less than 50% stenosis of the right carotid bifurcation. Antegrade flow in both vertebral arteries. * CTA of head and neck showed no stenosis of the intracranial or extracranial vessels. * Vascular surgical input appreciated. Discordant findings between carotid Doppler and CTA of the neck. Vascular surgery recommending outpatient follow- up. * 2-D echo with bubble study, revealed normal left ventricular systolic function with EF 50%. Mildly increased posterior wall thickness. No obvious regional wall motion abnormalities. Negative bubble study for [id number] shunt. * Hemoglobin A1c 4.9 * Fasting lipid panel with cholesterol 92, LDL 24, HDL 45 and triglycerides 111. Patient was on Lipitor 80 mg daily at home. We will decrease Lipitor to 40 mg daily. * Telemetry monitoring showing sinus rhythm in the 90s. No other arrhythmia. * Patient was not taking any antiplatelet medication at home. We will place on DAP for 21 days, and then stop Plavix and continue aspirin 81 mg indefinitely. * Optimize control of blood pressure to normotensive level. * X-ray of the hip revealed possibility of hernia with fecal debris overlying the medial pubic ramus. Will defer to IM. * Neurologically clear. Please reconsult neurology if any other concerns.
--- NOTE | 2022-10-08 02:34 | PN ---
PROGRESS NOTE CHIEF COMPLAINT: Right-sided weakness and failure to thrive. HISTORY OF PRESENT ILLNESS: This lady's weakness and hypoesthesias on the right are about the same. She appears to be chronically ill. Her white blood cell count is rising. She denies fever, chills, chest pain, shortness of breath, abdominal pain, etc. PHYSICAL EXAMINATION: CHEST: Clear. CARDIAC: Normal. ABDOMEN: Soft, nontender. EXTREMITIES: Right-sided weakness seems to be essentially gone. IMPRESSION: 1. Left-sided transient ischemic attack or cerebrovascular accident. 2. Failure to thrive and general debility. 3. Rising white count. PLAN: Continue with rehab and physical therapy while looking at white blood cell count and working on a discharge plan. MMODL / IJN: [id number] /
[2022-10-08] MEDS: SODIUM CHLORIDE 0.9% 1,000 ML IV SCH ×2 (04:52→16:55)
[2022-10-08] MEDS: ALBUTEROL NEBULIZED 2.5 MG/3 ML INHALATION SCH ×4 (07:59→19:36)
[2022-10-08] MEDS: SYMBICORT 160-4.5 MCG INHALER INHALATION SCH ×2 (08:00→19:36)
[2022-10-08] MEDS: CLOPIDOGREL 75 MG TAB PO SCH (09:55)
[2022-10-08] MEDS: ASPIRIN 81 MG PO SCH (09:55)
[2022-10-08] MEDS: PANTOPRAZOLE 40 MG TABLET PO SCH ×2 (09:55→17:12)
[2022-10-08] MEDS: SUCRALFATE 1 GM TAB PO SCH ×3 (09:55→17:12)
[2022-10-08] MEDS: HEPARIN SODIUM,PORCINE/PF 5,000 UNIT/0.5 ML SYRINGE SQ SCH ×2 (09:55→17:11)
[2022-10-08] MEDS: ONDANSETRON 4 MG TAB PO SCH (09:55)
[2022-10-08] MEDS: POTASSIUM CHLORIDE ER 20 MEQ TAB.ER PO SCH ×2 (09:55→23:46)
[2022-10-08] MEDS: QUEtiapine 50 MG TAB PO SCH ×2 (09:56→23:46)
[2022-10-08] MEDS: HYDROcodone/APAP 5-325MG 1 EACH TAB PO PRN ×2 (10:06→23:46)
[2022-10-08] MEDS: IPRATROPIUM-ALBUTEROL 3 ML NEB INHALATION PRN (11:54)
[2022-10-08] MEDS: KETOTIFEN 0.025% OPHTH DROPS 5 ML BTL BOTH EYES SCH ×2 (16:54→23:49)
[2022-10-08] MEDS: MONTELUKAST 10 MG TAB PO SCH (23:46)
[2022-10-08] MEDS: ATORVASTATIN 40 MG TAB PO SCH (23:46)
[2022-10-09] MEDS: HEPARIN SODIUM,PORCINE/PF 5,000 UNIT/0.5 ML SYRINGE SQ SCH ×4 (00:51→23:06)
[2022-10-09] MEDS: SUCRALFATE 1 GM TAB PO SCH ×5 (00:51→21:19)
[2022-10-09] MEDS: SODIUM CHLORIDE 0.9% 1,000 ML IV SCH ×3 (00:59→17:38)
[2022-10-09] MEDS: SYMBICORT 160-4.5 MCG INHALER INHALATION SCH (07:48)
[2022-10-09] MEDS: ALBUTEROL NEBULIZED 2.5 MG/3 ML INHALATION SCH ×4 (07:48→20:00)
[2022-10-09] MEDS: CLOPIDOGREL 75 MG TAB PO SCH (10:34)
[2022-10-09] MEDS: ASPIRIN 81 MG PO SCH (10:34)
[2022-10-09] MEDS: PANTOPRAZOLE 40 MG TABLET PO SCH ×2 (10:34→17:35)
[2022-10-09] MEDS: POTASSIUM CHLORIDE ER 20 MEQ TAB.ER PO SCH ×3 (10:34→21:19)
[2022-10-09] MEDS: QUEtiapine 50 MG TAB PO SCH ×2 (10:34→21:19)
[2022-10-09] MEDS: ONDANSETRON 4 MG TAB PO SCH (10:35)
[2022-10-09] MEDS: HYDROcodone/APAP 5-325MG 1 EACH TAB PO PRN ×2 (10:39→23:06)
[2022-10-09] MEDS: KETOTIFEN 0.025% OPHTH DROPS 5 ML BTL BOTH EYES SCH ×2 (13:14→21:19)
[2022-10-09 13:21] LABS: ALT 16 U/L (4-34); AST 19 U/L (14-36); African American GFR (CKD) >90 (>60 ml/min/1.73 sqM); Albumin 2.2 g/dL (3.5-5.0); Albumin/Globulin Ratio 0.9; Alkaline Phosphatase 142 U/L (38-126); Anion Gap 2 mmol/L; Blood Urea Nitrogen 6 mg/dL (7-17); Calcium 8.8 mg/dL (8.4-10.2); Carbon Dioxide 27 mmol/L (22-30); Chloride 104 mmol/L (98-107); Globulin 2.4 g/dL; Glucose 127 mg/dL (74-99); Non-African American GFR(CKD) >90 (>60 ml/min/1.73 sqM); Potassium 3.8 mmol/L (3.5-5.1); Sodium 133 mmol/L (137-145); Total Bilirubin 0.4 mg/dL (0.2-1.3); Total Protein 4.6 g/dL (6.3-8.2)
--- NOTE | 2022-10-09 16:17 | XR ---
EXAMINATION TYPE: XR chest 2V DATE OF EXAM: 10/09/2022 4:00 PM COMPARISON: Chest radiographs from 10/03/2022 TECHNIQUE: XR chest 2V Frontal and lateral views of the chest. CLINICAL INDICATION:Female, 62 years old with history of SOB,FTT; FINDINGS: Lungs/Pleura: There is no evidence of pleural effusion, focal consolidation, or pneumothorax. Pulmonary vascularity: Unremarkable. Heart/mediastinum: Cardiomediastinal silhouette is unremarkable. Musculoskeletal: No acute osseous pathology. IMPRESSION: No acute cardiopulmonary disease/process.
[2022-10-09 17:23] LABS: Basophils # (A) 0.07 X 10*3/uL (0.00-0.10); Basophils % (A) 0.7 %; Eosinophils # (A) 0.12 X 10*3/uL (0.04-0.35); Eosinophils % (A) 1.2 %; HCT 30.9 % (37.2-46.3); HGB 9.3 g/dL (12.0-15.0); Immature Grans, Automated 0.8 %; Lymphocytes # (A) 1.31 X 10*3/uL (0.90-5.00); Lymphocytes % (A) 12.7 %; MCH 28.1 pg (27.0-32.0); MCHC 30.1 g/dL (32.0-37.0); MCV 93.4 fL (80.0-97.0); Monocytes # (A) 0.76 X 10*3/uL (0.20-1.00); Monocytes % (A) 7.4 %; NRBC Per 100 WBC 0 /100 WBCS (0.0-0.0); Neutrophils # (A) 7.97 X 10*3/uL (1.80-7.70); Neutrophils % (A) 77.2 %; Platelet Count 817 X 10*3/uL (140-440); RBC 3.31 X 10*6/uL (4.10-5.20); RDW 16.8 % (11.5-14.5); WBC 10.31 X 10*3/uL (4.50-10.00)
[2022-10-09 17:24] LABS: RBC Morphology NORMAL
[2022-10-09 18:09] LABS: Glucose,Whole Blood 95 mg/dL (70-110)
[2022-10-09] MEDS: MONTELUKAST 10 MG TAB PO SCH (21:19)
[2022-10-09] MEDS: ATORVASTATIN 40 MG TAB PO SCH (21:19)
[2022-10-09] MEDS: METOCLOPRAMIDE 10 MG TAB PO PRN (23:24)
--- NOTE | 2022-10-10 03:46 | PN ---
PROGRESS NOTE DATE OF SERVICE: 10/09/2022 CHIEF COMPLAINT: Syncope, left-sided stroke, general debility and failure to thrive. HISTORY OF PRESENT ILLNESS: This lady continues with her weakness and chronically ill appearance, etiology of this is unclear. PHYSICAL EXAMINATION: GENERAL: She remains pale and chronically ill. CHEST: Clear. CARDIAC: Normal. ABDOMEN: Soft, nontender. IMPRESSION: 1. Syncope. 2. Left-sided cerebrovascular accident. 3. General debility and weakness. PLAN: 1. Continue to monitor her overall health and health status. 2. Repeat CBC. White count is 10,900 with a hemoglobin of only 9.6. Her echocardiogram was normal and there could be right inguinal hernia, but this is asymptomatic. CA-19-9 is ordered. MMODL / IJN: [id number] /
--- NOTE | 2022-10-10 03:55 | PN ---
PROGRESS NOTE DATE OF SERVICE: 10/08/2022 CHIEF COMPLAINT: CVA. HISTORY OF PRESENT ILLNESS: This lady remains fairly inactive and weak. She is complaining of a little bit of right lower quadrant pain and this could be related to what may be a hernia. Other than that, she is doing well. PHYSICAL EXAMINATION: GENERAL: She remains pale and chronically ill in appearance. VITAL SIGNS: Normal. CHEST: Clear. CARDIAC: Normal. IMPRESSION: 1. Left-sided cerebrovascular accident. 2. Failure to thrive. 3. Anemia. 4. Right lower quadrant pain. 5. Right inguinal hernia. PLAN: Continue workup. It is not clear where she would go after discharge. MMODL / IJN: [id number] /
[2022-10-10] MEDS: SODIUM CHLORIDE 0.9% 1,000 ML IV SCH ×2 (05:21→16:20)
[2022-10-10] MEDS: ONDANSETRON 4 MG TAB PO SCH (08:03)
[2022-10-10] MEDS: ASPIRIN 81 MG PO SCH (08:03)
[2022-10-10] MEDS: PANTOPRAZOLE 40 MG TABLET PO SCH ×2 (08:03→18:08)
[2022-10-10] MEDS: CLOPIDOGREL 75 MG TAB PO SCH (08:03)
[2022-10-10] MEDS: SUCRALFATE 1 GM TAB PO SCH ×4 (08:03→21:27)
[2022-10-10] MEDS: HEPARIN SODIUM,PORCINE/PF 5,000 UNIT/0.5 ML SYRINGE SQ SCH ×3 (08:03→23:27)
[2022-10-10] MEDS: QUEtiapine 50 MG TAB PO SCH ×2 (08:03→21:27)
[2022-10-10] MEDS: POTASSIUM CHLORIDE ER 20 MEQ TAB.ER PO SCH ×2 (08:03→21:27)
[2022-10-10] MEDS: KETOTIFEN 0.025% OPHTH DROPS 5 ML BTL BOTH EYES SCH ×2 (08:04→21:27)
[2022-10-10] MEDS: SYMBICORT 160-4.5 MCG INHALER INHALATION SCH ×2 (08:26→20:13)
[2022-10-10] MEDS: ALBUTEROL NEBULIZED 2.5 MG/3 ML INHALATION SCH ×4 (08:26→20:13)
[2022-10-10] MEDS: HYDROcodone/APAP 5-325MG 1 EACH TAB PO PRN ×2 (11:46→23:27)
[2022-10-10] MEDS: ATORVASTATIN 40 MG TAB PO SCH (21:27)
[2022-10-10] MEDS: MONTELUKAST 10 MG TAB PO SCH (21:27)
[2022-10-10] MEDS: METOCLOPRAMIDE 10 MG TAB PO PRN (23:27)
[2022-10-11] MEDS: SODIUM CHLORIDE 0.9% 1,000 ML IV SCH ×3 (01:54→22:01)
[2022-10-11] MEDS: ALBUTEROL NEBULIZED 2.5 MG/3 ML INHALATION SCH ×4 (07:47→19:34)
[2022-10-11] MEDS: SYMBICORT 160-4.5 MCG INHALER INHALATION SCH ×2 (07:47→19:34)
[2022-10-11] MEDS: QUEtiapine 50 MG TAB PO SCH ×2 (08:11→22:06)
[2022-10-11] MEDS: HEPARIN SODIUM,PORCINE/PF 5,000 UNIT/0.5 ML SYRINGE SQ SCH ×3 (08:11→22:03)
[2022-10-11] MEDS: POTASSIUM CHLORIDE ER 20 MEQ TAB.ER PO SCH ×2 (08:11→22:02)
[2022-10-11] MEDS: ASPIRIN 81 MG PO SCH (08:11)
[2022-10-11] MEDS: ONDANSETRON 4 MG TAB PO SCH (08:11)
[2022-10-11] MEDS: SUCRALFATE 1 GM TAB PO SCH ×4 (08:11→22:03)
[2022-10-11] MEDS: CLOPIDOGREL 75 MG TAB PO SCH (08:11)
[2022-10-11] MEDS: PANTOPRAZOLE 40 MG TABLET PO SCH ×2 (08:11→16:59)
[2022-10-11] MEDS: KETOTIFEN 0.025% OPHTH DROPS 5 ML BTL BOTH EYES SCH ×2 (08:12→22:02)
[2022-10-11] MEDS: HYDROcodone/APAP 5-325MG 1 EACH TAB PO PRN ×2 (08:23→23:00)
[2022-10-11] MEDS: MONTELUKAST 10 MG TAB PO SCH (22:02)
[2022-10-11] MEDS: ATORVASTATIN 40 MG TAB PO SCH (22:02)
--- NOTE | 2022-10-11 22:36 | PN ---
PROGRESS NOTE DATE OF SERVICE: 10/11/2022 CHIEF COMPLAINT: Left-sided CVA and anemia with failure to thrive. HISTORY OF PRESENT ILLNESS: This lady seems about the same. She does not seem to be improving. She is not getting . She really does not have a place to go. Her is stronger. PHYSICAL EXAMINATION: GENERAL: She remains pale and chronically ill in appearance. CHEST: Clear. CARDIAC: Normal. ABDOMEN: Soft, nontender. IMPRESSION: 1. Right-sided weakness and left-sided cerebrovascular accident. 2. Anemia. 3. General debility and failure to thrive. PLAN: At this point, it is felt that she can be discharged, how and where she will go is not clear. She was told that she will have to make arrangements soon. MMODL / IJN: [id number] /
[2022-10-11] MEDS: METOCLOPRAMIDE 10 MG TAB PO PRN (22:38)
--- NOTE | 2022-10-12 00:53 | PN ---
PROGRESS NOTE CHIEF COMPLAINT: CVA and anemia. HISTORY OF PRESENT ILLNESS: This lady's condition is the same. Her CA-19-9 has come back normal. Etiology for her failure to thrive, anemia and malnutrition are clear. The right side is improving. PHYSICAL EXAMINATION: GENERAL: She still looks pale and chronically ill. CHEST: Clear. CARDIAC: Normal. ABDOMEN: Soft, nontender. IMPRESSION: 1. Left-sided cerebrovascular accident with right hemiparesis. 2. Anemia. 3. General debility and malnutrition. PLAN: Continue trying to increase activity and oral intake while working on some type of a discharge location. MMODL / IJN: [id number] /
[2022-10-12] MEDS: SODIUM CHLORIDE 0.9% 1,000 ML IV SCH ×2 (05:25→08:30)
[2022-10-12] MEDS: ALBUTEROL NEBULIZED 2.5 MG/3 ML INHALATION SCH ×4 (07:17→20:33)
[2022-10-12] MEDS: SYMBICORT 160-4.5 MCG INHALER INHALATION SCH ×2 (07:18→20:31)
[2022-10-12] MEDS: CLOPIDOGREL 75 MG TAB PO SCH (08:27)
[2022-10-12] MEDS: PANTOPRAZOLE 40 MG TABLET PO SCH ×2 (08:27→17:22)
[2022-10-12] MEDS: ASPIRIN 81 MG PO SCH (08:27)
[2022-10-12] MEDS: HEPARIN SODIUM,PORCINE/PF 5,000 UNIT/0.5 ML SYRINGE SQ SCH ×2 (08:27→17:22)
[2022-10-12] MEDS: ONDANSETRON 4 MG TAB PO SCH (08:27)
[2022-10-12] MEDS: QUEtiapine 50 MG TAB PO SCH ×2 (08:27→20:56)
[2022-10-12] MEDS: POTASSIUM CHLORIDE ER 20 MEQ TAB.ER PO SCH ×2 (08:27→20:56)
[2022-10-12] MEDS: SUCRALFATE 1 GM TAB PO SCH ×4 (08:27→20:56)
[2022-10-12] MEDS: KETOTIFEN 0.025% OPHTH DROPS 5 ML BTL BOTH EYES SCH ×2 (08:29→20:57)
[2022-10-12 14:07] VITALS: BMI 33.4
[2022-10-12 19:44] VITALS: RESP 16
[2022-10-12] MEDS: IPRATROPIUM-ALBUTEROL 3 ML NEB INHALATION PRN (20:31)
[2022-10-12] MEDS: MONTELUKAST 10 MG TAB PO SCH (20:56)
[2022-10-12] MEDS: ATORVASTATIN 40 MG TAB PO SCH (20:56)
[2022-10-12] MEDS: HYDROcodone/APAP 5-325MG 1 EACH TAB PO PRN (21:10)
[2022-10-13] MEDS: HEPARIN SODIUM,PORCINE/PF 5,000 UNIT/0.5 ML SYRINGE SQ SCH ×2 (00:09→09:16)
[2022-10-13] MEDS: SODIUM CHLORIDE 0.9% 1,000 ML IV SCH ×2 (03:39→12:59)
[2022-10-13] MEDS: HYDROcodone/APAP 5-325MG 1 EACH TAB PO PRN (05:10)
[2022-10-13] MEDS: ONDANSETRON 4 MG TAB PO SCH (09:16)
[2022-10-13] MEDS: SUCRALFATE 1 GM TAB PO SCH ×2 (09:16→12:59)
[2022-10-13] MEDS: PANTOPRAZOLE 40 MG TABLET PO SCH (09:16)
[2022-10-13] MEDS: POTASSIUM CHLORIDE ER 20 MEQ TAB.ER PO SCH (09:16)
[2022-10-13] MEDS: CLOPIDOGREL 75 MG TAB PO SCH (09:16)
[2022-10-13] MEDS: ASPIRIN 81 MG PO SCH (09:16)
[2022-10-13] MEDS: QUEtiapine 50 MG TAB PO SCH (09:16)
[2022-10-13] MEDS: KETOTIFEN 0.025% OPHTH DROPS 5 ML BTL BOTH EYES SCH (09:17)
[2022-10-13] MEDS: ALBUTEROL NEBULIZED 2.5 MG/3 ML INHALATION SCH ×2 (09:27→12:46)
[2022-10-13] MEDS: SYMBICORT 160-4.5 MCG INHALER INHALATION SCH (09:27)
[2022-10-13 12:07] VITALS: BP 83/57; TEMP 97.9
[2022-10-13 12:50] VITALS: PULSE 92
--- NOTE | 2022-10-14 00:57 | DS ---
DISCHARGE SUMMARY CHIEF COMPLAINT: Syncope with right-sided weakness. HISTORY OF PRESENT ILLNESS AND PHYSICAL EXAMINATION: Details of this lady's history and physical can be found in the initial workup. LABORATORY STUDIES: While she was in the hospital, she had numerous studies. It was determined that she had had a left-sided CVA resulting in her right-sided hypoesthesias and weakness. Weakness cleared quite quickly and she did steadily improve. In the hospital, she did have an anemia, which was unexplained. She had a picture of wasting, malnutrition, and dehydration. No obvious etiology for her state could be determined. She also had a problem of not having adequate place to live. However, no other arrangements were felt to be reasonable, appropriate, or even possible. She finally agreed that she would try to go home and live with a relative. She will be followed up in a week or so. FINAL DIAGNOSES: 1. Left-sided cerebrovascular accident with right hemiparesis. 2. General debility. 3. Failure to thrive. 4. Malnutrition. 5. Anemia. OPERATIONS: None. CONSULTATIONS: None. She is improved. MMMICHELLE / ANT: [id number] /
--- NOTE | 2022-10-14 01:27 | PN ---
PROGRESS NOTE DATE OF SERVICE: 10/12/2022 CHIEF COMPLAINT: Left-sided CVA, weakness, general debility, failure to thrive, and anemia. HISTORY OF PRESENT ILLNESS: This lady remains stable. Discharge planning is in progress, but there really isn't any place for her to go. She is not doing well and she remains anemic. However, other than that, she feels that she could be discharged and will make arrangements to try to go home tomorrow. IMPRESSION: 1. Left-sided cerebrovascular accident with minimal right hemiparesis. 2. Anemia. 3. Leukocytosis. 4. Malnutrition. 5. General debility. PLAN: Hopefully, she can be discharged tomorrow. MMODL / IJN: [id number] /
--- NOTE | 2022-10-16 19:38 | CDI ---
Documentation Clarification Form Date: 10/16/2022 07:24:08 PM From: Yamileth Bob Phone: Admit Date: 10/03/2022 02:42:00 AM Patient Name: Sandra Riggs Visit Number: [id number] Discharge Date: 10/13/2022 04:35:00 PM ATTENTION: The Clinical Documentation Specialists (CDI) and [facility] Coding Staff appreciate your assistance in clarifying documentation. Please respond to the clarification below the line at the bottom and electronically sign. The CDI & [facility] Coding staff will review the response and follow-up if needed. Please note: Queries are made part of the Legal Health Record. If you have any questions, please contact the author of this message via ITS. Dr. Cameron Guillory Malnutrition is documented per Progress Note 10/11/22. Additional clarification regarding the severity of malnutrition is requested. History/Risk Factors: 62yo F, LCVA w RT hemiparesis, General debility, FTT, HTN, anemia, malnutrition, leukocytosis Clinical Indicators: Current BMI: 33.5 Weight Loss: Denies weight change Reports muscle weakness Treatment: Continue trying to increase activity and oral intake while working on some type of a discharge location. Please clarify the type of malnutrition, if known: [ ] Mild Protein-Calorie Malnutrition [ ] Other condition, please specify [ ] Unable to Determine (Template Last Revised: December 2020) MTDD
--- NOTE | 2022-11-03 22:18 | MISC ---
MISCELLANOUS REPORT Severe protein-calorie malnutrition. MMODL / IJN: [id number] /
== END 2022-10-13 16:35 | disposition home or self-care (01) | DRG 64 ==
LOC: EC 23:20 → 3SCARD 10-03 02:42 → 5NMEDONC 10-07 18:25
PROVIDERS: ADMIT Family Medicine; ATTEND Family Medicine
DX: I63.232 Cerebral infarction due to unspecified occlusion or stenosis of left carotid arteries (principal); E43 Unspecified severe protein-calorie malnutrition; G81.91 Hemiplegia, unspecified affecting right dominant side; R62.7 Adult failure to thrive; I10 Essential (primary) hypertension; D64.9 Anemia, unspecified; J43.9 Emphysema, unspecified; Z68.33 Body mass index [BMI] 33.0-33.9, adult; I25.10 Atherosclerotic heart disease of native coronary artery without angina pectoris; R60.0 Localized edema; R29.702 NIHSS score 2; R29.701 NIHSS score 1; R20.2 Paresthesia of skin; E83.42 Hypomagnesemia; E87.6 Hypokalemia; R53.81 Other malaise; I49.3 Ventricular premature depolarization; D72.829 Elevated white blood cell count, unspecified; K40.90 Unilateral inguinal hernia, without obstruction or gangrene, not specified as recurrent; W18.30XA Fall on same level, unspecified, initial encounter; Z28.310 Unvaccinated for COVID-19; Z87.891 Personal history of nicotine dependence; Y92.009 Unspecified place in unspecified non-institutional (private) residence as the place of occurrence of the external cause; Z79.51 Long term (current) use of inhaled steroids; Z87.19 Personal history of other diseases of the digestive system; Z79.899 Other long term (current) drug therapy; Z79.1 Long term (current) use of non-steroidal anti-inflammatories (NSAID); Z82.49 Family history of ischemic heart disease and other diseases of the circulatory system
CPT/HCPCS: 36415; 70450; 70496; 70498; 70551; 71045; 71046; 71275; 73502; 80053; 80061; 80306; 81001; 83036; 83735; 83880; 84484; 85025; 85027; 85379; 85610; 86301; 93005; 93306; 93880; 93970; 94640; 96365; 96366; 99285

== ENCOUNTER 2022-10-17 17:10 | Inpatient (IN) | payer OTHER ==
[2022-10-17] MEDS ORDERED: MECLIZINE 12.5 MG TAB PO STA (18:37)
[2022-10-17] MEDS ORDERED: SODIUM CHLORIDE 0.9% 1,000 ML IV STA ×2 (18:37→21:45)
[2022-10-17 19:35] LABS: Basophils # (A) 0.1 k/uL (0-0.2); Basophils % (A) 0 %; Eosinophils # (A) 0.3 k/uL (0-0.7); Eosinophils % (A) 1 %; HCT 39.1 % (34.0-46.0); HGB 12.4 gm/dL (11.4-16.0); Hypochromasia Moderate; Lymphocytes # (A) 1.1 k/uL (1.0-4.8); Lymphocytes % (A) 5 %; MCH 29.5 pg (25.0-35.0); MCHC 31.6 g/dL (31.0-37.0); MCV 93.3 fL (80.0-100.0); Mean Platelet Volume 7.3; Monocytes # (A) 0.8 k/uL (0-1.0); Monocytes % (A) 3 %; Neutrophils # (A) 20.2 k/uL (1.3-7.7); Neutrophils % (A) 89 %; Platelet Count 725 k/uL (150-450); RBC 4.19 m/uL (3.80-5.40); RDW 15.7 % (11.5-15.5); WBC 22.6 k/uL (3.8-10.6)
[2022-10-17 19:54] LABS: ALT 15 U/L (4-34); AST 32 U/L (14-36); African American GFR (CKD) >90 (>60 ml/min/1.73 sqM); Albumin 2.6 g/dL (3.5-5.0); Alkaline Phosphatase 183 U/L (38-126); Anion Gap 5 mmol/L; Blood Urea Nitrogen 8 mg/dL (7-17); Calcium 9.2 mg/dL (8.4-10.2); Carbon Dioxide 19 mmol/L (22-30); Chloride 106 mmol/L (98-107); Glucose 81 mg/dL (74-99); Non-African American GFR(CKD) >90 (>60 ml/min/1.73 sqM); Sodium 130 mmol/L (137-145); Total Bilirubin 2.1 mg/dL (0.2-1.3); Total Protein 5.7 g/dL (6.3-8.2)
[2022-10-17 19:56] LABS: Potassium 4.1 mmol/L (3.5-5.1)
[2022-10-17 19:57] LABS: INR 1.1 (<1.2); Prothrombin Time 11.6 sec (9.0-12.0)
--- NOTE | 2022-10-17 20:05 | XR ---
EXAMINATION TYPE: XR foot complete LT, XR tibia fibula LT DATE OF EXAM: 10/17/2022 7:10 PM INDICATION: Patient age:Female; 62 years old; Reason for study: pain, blister; COMPARISON: None TECHNIQUE: The left foot was examined in the AP, oblique, and lateral projections. Left leg examined in frontal and lateral. FINDINGS: No evidence of any acute osseous pathology. No evidence of soft tissue swelling. Joints are preserve d. Soft tissue suspected blisters adjacent to 1.7 cm and 2.2 cm are appreciated along the distal left leg. No evidence of osseous erosion. Total knee arthroplasty changes. Hardware appears intact. IMPRESSION: 1. No evidence of acute fracture. 2. Soft tissue exophytic lesions could represent blisters.
--- NOTE | 2022-10-17 20:06 | XR ---
EXAMINATION TYPE: XR chest 2V DATE OF EXAM: 10/17/2022 7:11 PM COMPARISON: Chest radiographs from 10/09/2022 TECHNIQUE: XR chest 2V Frontal and lateral views of the chest. CLINICAL INDICATION:Female, 62 years old with history of dizzy; FINDINGS: Lungs/Pleura: There is no evidence of pleural effusion, focal consolidation, or pneumothorax. Pulmonary vascularity: Unremarkable. Heart/mediastinum: Cardiomediastinal silhouette is unremarkable. Musculoskeletal: No acute osseous pathology. IMPRESSION: 1. No acute cardiopulmonary disease process. 2. COPD changes.
--- NOTE | 2022-10-17 20:10 | CT ---
EXAMINATION TYPE: CT brain cspine wo con CT DLP: 1188.5 mGycm, Automated exposure control for dose reduction was used. DATE OF EXAM: 10/17/2022 7:24 PM COMPARISON: None. CLINICAL INDICATION:Female, 62 years old with history of fall, on thinners; Fall on thinners. TECHNIQUE: Brain: Multiple axial CT images of the brain were obtained without IV contrast. Cspine: Axial CT images from the skull base to the inferior aspect of T2 we obtained without intraven ous contrast. Coronal and sagittal reformatted images were also reviewed. FINDINGS: Brain: Extra-axial spaces: No abnormal extra-axial fluid collections. Ventricular system: Within normal limits Cerebral parenchyma: No acute intraparenchymal hemorrhage or mass effect. The zuleta-white junction is well differentiated. Cerebellum: Unremarkable. Mass effect: No evidence of midline shift. Intracranial vasculature: Atherosclerotic calcifications of the intracranial vessels. Soft tissues: Normal. Calvarium/osseous structures: No depressed skull fracture. Paranasal sinuses and mastoid air cells: Clear. Visualized orbits: Orbital contents are intact. Cervical spine: Fracture: None. Osseous structures: Multilevel degenerative disc disease changes with endplate spurring and disc oste ophyte complex's. Vertebral alignment: Within normal limits. Spinal canal/Neural Foramina: Disc osteophyte complexes at C5-C6 with at least mild spinal canal sten osis. No evidence for significant neural foraminal stenosis. Neck soft tissues: Prevertebral soft tissues are within normal limits. Other: The airway is patent. Mild centrilobular emphysema changes. IMPRESSION: 1. No acute intracranial process. 2. No evidence of cervical spine fracture. 3. Mild multilevel degenerative disc disease.
[2022-10-17] MEDS ORDERED: VANCOMYCIN IV PER PHARMACY 1 EACH MISC MISCELLANE PRN (21:44)
[2022-10-17] MEDS ORDERED: VANCOMYCIN 1,000 MG in SODIUM CHLORIDE 0.9% 250 ML IVPB ONE (22:00)
--- NOTE | 2022-10-17 22:32 | ED ---
General Adult HPI - General Chief complaint: Wound/Laceration Stated complaint: foot wound Time Seen by Provider: 10/17/22 17:57 Source: EMS, RN notes reviewed, old records reviewed Mode of arrival: EMS Limitations: no limitations - History of Present Illness Initial comments: Patient is a 62-year-old female who presents emergency Department with multiple complaints. She is having wounds over her left lower extremity. She denies blisters, and 1 that popped earlier today. Denies fevers. Denies shortness breath, chest pain, abdominal pain, nausea, vomiting. No other symptoms at this time other than lightheadedness versus vertiginous symptoms. States this started this morning and her intermittent. Does endorse following. Believe she is on a blood thinner. Describes it as a room spinning sensation. Denies any cough, sick contacts. No other acute complaints at this time. Presents for further evaluation regarding the dizziness as well as the concern for the blisters on her left lower extremity. States she did fall last week. Unknown is if this is concerning to her dizziness. Presents for further evaluation at this time. - Related Data Home Medications Medication Instructions Recorded Confirmed Albuterol Nebulized [Ventolin 3 ml INHALATION RT-QID 10/03/22 10/17/22 Nebulized] Albuterol Sulfate [Ventolin HFA] 2 puff INHALATION RT-QID PRN 10/03/22 10/17/22 Atorvastatin Calcium [Lipitor] 80 mg PO DAILY 10/03/22 10/17/22 Budesonide-Formot 160-4.5 Mcg 1 puff INHALATION RT-BID 10/03/22 10/17/22 [Symbicort 160-4.5 Mcg Inhaler] Ergocalciferol [Vitamin D2 (1250 2,500 mcg PO Q28D 10/03/22 10/17/22 Mcg = 27129 Iu)] Ketotifen 0.025% Ophth Soln 1 drop BOTH EYES BID 10/03/22 10/17/22 [Zaditor] Loratadine [Claritin] 10 mg PO DAILY 10/03/22 10/17/22 Metoclopramide [Reglan] 10 mg PO TID PRN 10/03/22 10/17/22 Montelukast [Singulair] 10 mg PO HS 10/03/22 10/17/22 Naloxegol Oxalate [Movantik] 25 mg PO DAILY 10/03/22 10/17/22 Omeprazole [PriLOSEC] 20 mg PO BID 10/03/22 10/17/22 Ondansetron [Zofran] 4 mg PO DAILY 10/03/22 10/17/22 Potassium Chloride [Klor-Con M20] 20 meq PO BID 10/03/22 10/17/22 QUEtiapine FUMARATE [QUEtiapine 300 mg PO HS 10/03/22 10/17/22 FUMARATE ER] Sucralfate [Carafate] 1 gm PO QID 10/03/22 10/17/22 rOPINIRole HCL 0.25 mg PO HS 10/03/22 10/17/22 Previous Rx's Medication Instructions Recorded Albuterol Nebulized [Ventolin 2.5 mg INHALATION RT-Q2H PRN ml 10/13/22 Nebulized] Aspirin 81 mg PO DAILY #100 tab 10/13/22 Clopidogrel [Plavix] 75 mg PO DAILY #30 tab 10/13/22 Allergies Allergy/AdvReac Type Severity Reaction Status Date / Time No Known Allergies Allergy Verified 10/17/22 18:33 Review of Systems ROS Statement: Those systems with pertinent positive or pertinent negative responses have been documented in the HPI. Review of Systems: CONST: Denies fever EYES: Denies blurry vision ENT: Denies nasal congestion C/V: Denies Chest pain RESP: Denies shortness of breath GI: Denies abdominal pain : Denies dysuria SKIN: Endorses left lower extremity rash, blisters. MSK: Denies joint pain. NEURO: Denies headache ROS Other: All systems not noted in ROS Statement are negative. Past Medical History Past Medical History: COPD, Osteoarthritis (OA) History of Any Multi-Drug Resistant Organisms: None Reported Past Surgical History: Cholecystectomy, Hysterectomy, Joint Replacement, Tonsillectomy Additional Past Surgical History / Comment(s): left knee Past Anesthesia/Blood Transfusion Reactions: No Reported Reaction Past Psychological History: No Psychological Hx Reported Smoking Status: Former smoker Past Alcohol Use History: None Reported Past Drug Use History: None Reported - Past Family History Mother History Unknown: Yes Father Family Medical History: Congestive Heart Failure (CHF), Hypertension General Exam - General Exam Comments Initial Comments: General: Appears in no acute distress. HEAD: Normal with no signs of head trauma. EYES: PERRLA, EOMI, conjunctiva normal, no discharge. No nystagmus. ENT: Hearing grossly intact, normal oropharynx. RESPIRATORY: Clear breath sounds bilaterally. No wheezes, rales, or rhonchi. C/V: Regular rate and rhythm. S1 and S2 auscultated, no edema, peripheral pulses 2+ and intact throughout ABD: Abd is soft, nontender, nondistended EXT: Normal range of motion, no obvious deformity SKIN: Erythematous lesions over the left lower extremity with some nonhemorrhagic blisters present. Unknown chronicity for these. No fluctuance palpated. No raised edges. No crepitus appreciated. NEURO: Alert and oriented x 4. Cranial nerves II-XII intact. No focal sensory or strength deficits. GCS of 15. NIH of 0. Cerebellar function intact as evident by normal finger to nose testing and ftpy-og-[id number] testing. Limitations: no limitations Course Vital Signs 10/17/22 20:18 Pulse Rate 98 Respiratory 14 Rate Blood Pressure 104/70 O2 Sat by Pulse 100 Oximetry Medical Decision Making - Medical Decision Making Based on the patient's presentation and physical exam, I'm concerned for infectious process of the left lower extremity but cannot rule out other etiology considering her dizziness. We will obtain infectious labs, screening EKG, brain CT. She was in agreement this plan. Vital signs within acceptable limits. Rashes no evidence of acutely, quickly worsening infection, no crepitus. No concern for necrotizing fasciitis at this time. Appears to be cellulitis. Laboratory studies are remarkable for a leukocytosis of 22. Patient is mildly hyponatremic at 130. Remainder the labs are unremarkable. Urinalysis still pending at this time. Viral swabs are still pending at this time. CT head, cervical spine is interpreted by myself reveals no evidence of acute traumatic injury. No acute intracranial process. Chest x-ray as interpreted by myself reveals no evidence of acute cardio pulmonary process. Left lower extremity x- rays as interpreted by myself reveals the blisters present with no evidence of osteomyelitis or other injury at this time. Lactic acid is within normal limits. I updated the patient. Discussed admission versus discharge. I believe admission is acceptable at this time. She'll be started on vancomycin for her cellulitis that is concerned. We are still waiting on a urine studies as well as viral swabs. She'll be admitted to the hospital in stable condition.Patient's dizziness resolved prior to receiving any meclizine. States she feels much improved. I discussed the case with Dr. Morgan who accepted the patient. Patient was admitted in stable condition. - Lab Data Result diagrams: 10/17/22 19:11 10/17/22 19:11 Lab Results 10/17/22 10/17/22 10/17/22 Range/Units 19:11 19:11 19:11 WBC 22.6 H (3.8-10.6) k/uL RBC 4.19 (3.80-5.40) m/uL Hgb 12.4 (11.4-16.0) gm/dL Hct 39.1 (34.0-46.0) % MCV 93.3 (80.0-100.0) fL MCH 29.5 (25.0-35.0) pg MCHC 31.6 (31.0-37.0) g/dL RDW 15.7 H (11.5-15.5) % Plt Count 725 H (150-450) k/uL MPV 7.3 Neutrophils % 89 % Lymphocytes % 5 % Monocytes % 3 % Eosinophils % 1 % Basophils % 0 % Neutrophils # 20.2 H (1.3-7.7) k/uL Lymphocytes # 1.1 (1.0-4.8) k/uL Monocytes # 0.8 (0-1.0) k/uL Eosinophils # 0.3 (0-0.7) k/uL Basophils # 0.1 (0-0.2) k/uL Hypochromasia Moderate PT 11.6 (9.0-12.0) sec INR 1.1 (<1.2) Sodium 130 L (137-145) mmol/L Potassium 4.1 (3.5-5.1) mmol/L Chloride 106 (98-107) mmol/L Carbon Dioxide 19 L (22-30) mmol/L Anion Gap 5 mmol/L BUN 8 (7-17) mg/dL Creatinine 0.52 (0.52-1.04) mg/dL Est GFR (CKD-EPI)AfAm >90 (>60 ml/min/1.73 sqM) Est GFR (CKD-EPI)NonAf >90 (>60 ml/min/1.73 sqM) Glucose 81 (74-99) mg/dL Plasma Lactic Acid Seth (0.7-2.0) mmol/L Calcium 9.2 (8.4-10.2) mg/dL Total Bilirubin 2.1 H (0.2-1.3) mg/dL AST 32 (14-36) U/L ALT 15 (4-34) U/L Alkaline Phosphatase 183 H (38-126) U/L Total Protein 5.7 L (6.3-8.2) g/dL Albumin 2.6 L (3.5-5.0) g/dL 10/17/22 Range/Units 19:11 WBC (3.8-10.6) k/uL RBC (3.80-5.40) m/uL Hgb (11.4-16.0) gm/dL Hct (34.0-46.0) % MCV (80.0-100.0) fL MCH (25.0-35.0) pg MCHC (31.0-37.0) g/dL RDW (11.5-15.5) % Plt Count (150-450) k/uL MPV Neutrophils % % Lymphocytes % % Monocytes % % Eosinophils % % Basophils % % Neutrophils # (1.3-7.7) k/uL Lymphocytes # (1.0-4.8) k/uL Monocytes # (0-1.0) k/uL Eosinophils # (0-0.7) k/uL Basophils # (0-0.2) k/uL Hypochromasia PT (9.0-12.0) sec INR (<1.2) Sodium (137-145) mmol/L Potassium (3.5-5.1) mmol/L Chloride (98-107) mmol/L Carbon Dioxide (22-30) mmol/L Anion Gap mmol/L BUN (7-17) mg/dL Creatinine (0.52-1.04) mg/dL Est GFR (CKD-EPI)AfAm (>60 ml/min/1.73 sqM) Est GFR (CKD-EPI)NonAf (>60 ml/min/1.73 sqM) Glucose (74-99) mg/dL Plasma Lactic Acid Seth 1.4 (0.7-2.0) mmol/L Calcium (8.4-10.2) mg/dL Total Bilirubin (0.2-1.3) mg/dL AST (14-36) U/L ALT (4-34) U/L Alkaline Phosphatase (38-126) U/L Total Protein (6.3-8.2) g/dL Albumin (3.5-5.0) g/dL - EKG Data -: EKG Interpreted by Me EKG Comments: 12-lead Electrocardiogram Interpretation Note EKG was reviewed and interpreted by myself. 12-lead ECG performed at 2013 is interpreted by me as revealing normal sinus rhythm at a rate of 98 beats per minute. [place] is normal. [place] interval is 141 ms, QRS duration is 98 ms, QTc is 393 ms. There were no acute ST or T wave abnormalities to suggest myocardial ischemia or injury. R wave progression across the precordium was satisfactory. By my interpretation this EKG is non-diagnostic for acute ischemia. When compared with prior EKG from 10/02/2022, no significant change. There is a good deal of baseline artifact present. Disposition Clinical Impression: Cellulitis, Dizzy Disposition: ADMITTED IP TO THIS HOSP Condition: Stable Referrals: Cameron Guillory MD [Primary Care Provider] - 1-2 days Time of Disposition: 21:30
[2022-10-17] MEDS ORDERED: METOCLOPRAMIDE 10 MG TAB PO PRN (22:38)
[2022-10-17] MEDS ORDERED: ALBUTEROL HFA INHALER INHALATION PRN (22:38)
[2022-10-17] MEDS ORDERED: NALOXONE 0.4 MG/ML 1 ML VIAL IV PRN (22:50)
[2022-10-18] MEDS: HEPARIN SODIUM,PORCINE/PF 5,000 UNIT/0.5 ML SYRINGE SQ SCH ×4 (00:07→17:31)
[2022-10-18 07:32] LABS: Appearance,Urine Clear (Clear); Bacteria,Urine Rare /hpf; Bilirubin,Urine Negative (Negative); Blood,Urine Negative (Negative); Color,Urine Yellow; Glucose,Urine (UA) Negative (Negative); Hyaline Casts,Urine 1 /lpf (0-2); Ketones,Urine Negative (Negative); Leukocyte Esterase,Urine Large (Negative); Mucus,Urine Rare /hpf; Nitrite,Urine Negative (Negative); Protein,Urine Negative (Negative); RBC,Urine 3 /hpf (0-5); Specific Gravity,Urine 1.007 (1.001-1.035); Squamous Epithelial Cell,Urine 2 /hpf (0-4); Urobilinogen,Urine <2.0 mg/dL (<2.0); WBC,Urine 34 /hpf (0-5)
[2022-10-18 07:57] LABS: Basophils # (A) 0.1 k/uL (0-0.2); Basophils % (A) 0 %; Eosinophils # (A) 0.2 k/uL (0-0.7); Eosinophils % (A) 1 %; HCT 34.1 % (34.0-46.0); HGB 10.5 gm/dL (11.4-16.0); Hypochromasia Marked; Lymphocytes # (A) 1.3 k/uL (1.0-4.8); Lymphocytes % (A) 7 %; MCH 29.6 pg (25.0-35.0); MCHC 30.8 g/dL (31.0-37.0); MCV 95.9 fL (80.0-100.0); Mean Platelet Volume 7.3; Monocytes # (A) 0.9 k/uL (0-1.0); Monocytes % (A) 5 %; Neutrophils # (A) 15.6 k/uL (1.3-7.7); Neutrophils % (A) 86 %; Platelet Count 678 k/uL (150-450); RBC 3.56 m/uL (3.80-5.40); RDW 15.5 % (11.5-15.5); WBC 18.2 k/uL (3.8-10.6)
[2022-10-18 08:11] LABS: African American GFR (CKD) >90 (>60 ml/min/1.73 sqM); Anion Gap 1 mmol/L; Blood Urea Nitrogen 4 mg/dL (7-17); Calcium 8.4 mg/dL (8.4-10.2); Carbon Dioxide 21 mmol/L (22-30); Chloride 112 mmol/L (98-107); Glucose 69 mg/dL (74-99); Non-African American GFR(CKD) >90 (>60 ml/min/1.73 sqM); Potassium 3.4 mmol/L (3.5-5.1); Sodium 134 mmol/L (137-145)
[2022-10-18] MEDS: SYMBICORT 160-4.5 MCG INHALER INHALATION SCH ×2 (08:27→19:58)
[2022-10-18] MEDS: ALBUTEROL NEBULIZED 2.5 MG/3 ML INHALATION SCH ×4 (08:27→19:58)
[2022-10-18] MEDS ORDERED: Potassium Replacement Protocol 1 EACH MISC MISCELLANE PRN (10:13)
[2022-10-18] MEDS: POTASSIUM CHLORIDE ER 20 MEQ TAB.ER PO SCH ×2 (10:57→12:27)
[2022-10-18] MEDS: ASPIRIN 81 MG PO SCH (10:58)
[2022-10-18] MEDS: LORATADINE 10 MG TAB PO SCH (10:58)
[2022-10-18] MEDS: CLOPIDOGREL 75 MG TAB PO SCH (10:58)
[2022-10-18] MEDS: ONDANSETRON 4 MG TAB PO SCH (10:58)
[2022-10-18] MEDS: PANTOPRAZOLE 40 MG TABLET PO SCH (10:58)
[2022-10-18] MEDS: ATORVASTATIN 80 MG TAB PO SCH (10:58)
[2022-10-18] MEDS: VANCOMYCIN 1,000 MG in SODIUM CHLORIDE 0.9% 250 ML IVPB SCH ×2 (10:59→22:54)
--- NOTE | 2022-10-18 20:58 | HP ---
HISTORY AND PHYSICAL CHIEF COMPLAINT: Fever, pain and swelling in the left leg. HISTORY OF PRESENT ILLNESS: This lady was just discharged several days ago. She went home to a poor home situation. She started to have more pain and swelling in the left leg, came back to the emergency room, where she was diagnosed as having edema and cellulitis of the left leg. REVIEW OF SYSTEMS: She has had no chills. She has had no vomiting, chest pain, abdominal pain, urinary complaints, etc. Past medical history, family history, and personal and social histories are all otherwise unchanged. PHYSICAL EXAMINATION: VITAL SIGNS: Normal. HEAD, EARS, EYES, NOSE, MOUTH AND THROAT: Normal except for dry mucous membranes. CHEST: Clear. CARDIAC: Demonstrates normal sinus rhythm. ABDOMEN: Soft, nontender. EXTREMITIES: Demonstrates the left leg to be slightly edematous and there is 1 or 2 bullae. Pulses are good. IMPRESSION: 1. Lower extremity edema. 2. Cellulitis. 3. Leukocytosis. 4. Malnutrition. 5. General debility and failure to thrive. PLAN: 1. Bedrest. 2. IV fluids. 3. IV antibiotics. 4. Discharge planning. She is now willing to go to rehab. MMODL / IJN: [id number] /
[2022-10-18] MEDS: QUEtiapine 50 MG TAB PO SCH (22:54)
--- NOTE | 2022-10-19 00:56 | PN ---
PROGRESS NOTE CHIEF COMPLAINT: Cellulitis of the left leg. HISTORY OF PRESENT ILLNESS: This lady is still having some discomfort in the left leg. The edema has diminished slightly. PHYSICAL EXAMINATION: VITAL SIGNS: She is afebrile. CHEST: Clear. CARDIAC: Normal. IMPRESSION: 1. Cellulitis of the left leg. 2. Malnutrition. 3. Leukocytosis. 4. Anemia. 5. General debility. PLAN: Continue with IV fluids and antibiotics and then work on a discharge plan. MMODL / IJN: [id number] /
[2022-10-19] MEDS: HEPARIN SODIUM,PORCINE/PF 5,000 UNIT/0.5 ML SYRINGE SQ SCH ×4 (01:31→23:07)
[2022-10-19] MEDS: ACETAMINOPHEN TAB 325 MG TAB PO PRN ×2 (06:36→20:22)
[2022-10-19] MEDS: PANTOPRAZOLE 40 MG TABLET PO SCH (06:36)
[2022-10-19] MEDS: SYMBICORT 160-4.5 MCG INHALER INHALATION SCH ×2 (07:10→21:25)
[2022-10-19] MEDS: ALBUTEROL NEBULIZED 2.5 MG/3 ML INHALATION SCH ×4 (07:10→21:25)
--- NOTE | 2022-10-19 07:36 | HP ---
HISTORY AND PHYSICAL CHIEF COMPLAINT: Pain, swelling and vesicles in the left leg with elevated white count. HISTORY OF PRESENT ILLNESS: This lady is back in the hospital. She was just discharged a few days ago. She has come back in with a fever, elevated white count, and some edema in the left leg with several vesicles. REVIEW OF SYSTEMS: She denies any headaches, neurologic problems, chest pain, shortness of breath. DICTATION ENDS HERE MMODL / IJN: [id number] /
[2022-10-19] MEDS: ATORVASTATIN 80 MG TAB PO SCH (10:09)
[2022-10-19] MEDS: CLOPIDOGREL 75 MG TAB PO SCH (10:09)
[2022-10-19] MEDS: LORATADINE 10 MG TAB PO SCH (10:09)
[2022-10-19] MEDS: ONDANSETRON 4 MG TAB PO SCH (10:09)
[2022-10-19] MEDS: ASPIRIN 81 MG PO SCH (10:09)
[2022-10-19] MEDS: VANCOMYCIN 1,000 MG in SODIUM CHLORIDE 0.9% 250 ML IVPB SCH ×3 (12:28→23:19)
[2022-10-19] MEDS: QUEtiapine 50 MG TAB PO SCH ×2 (12:29→23:05)
[2022-10-19 14:12] VITALS: BMI 22.0
[2022-10-19] MEDS: FLUCONAZOLE 100 MG TAB PO SCH (17:17)
--- NOTE | 2022-10-19 23:09 | PN ---
PROGRESS NOTE CHIEF COMPLAINT: Edema and cellulitis of the left leg with leukocytosis and failure to thrive. HISTORY OF PRESENT ILLNESS: This lady is stable. She is not having any particular pain in the left leg. White count remains elevated. The reason for this is not clear. PHYSICAL EXAMINATION: GENERAL: She remains pale and chronically ill in appearance. CHEST: Clear. CARDIAC: Normal. ABDOMEN: Soft, nontender. MUSCULOSKELETAL: The left leg is not inflamed. Peripheral circulation is adequate. There are still vesicles on the left lower leg. IMPRESSION: 1. Edema of the left leg with cellulitis and vesicles. 2. Leukocytosis. 3. General debility and failure to thrive. 4. Possible urinary tract infection. PLAN: 1. Culture of the urine. 2. Infectious Disease consult. MMODL / IJN: [id number] /
--- NOTE | 2022-10-19 23:10 | P.CONS ---
History of Present Illness - Reason for Consult Consult date: 10/19/22 Elevated WBC Requesting physician: Cameron Guillory - Chief Complaint Lower extremity pain and blister x few days - History of Present Illness Patient is a 62-year-old female presenting to the ER 2 days ago for evaluation of multiple blister to the left lower extremity and apparently 1 pop the day she presented to the hospital patient has been complaining of some pain to the left lower extremity more of a dull aching to sharp 3-4 out of 10 no radiation she did have some swelling to the left leg but no significant redness or any drainage patient also complaining of some burning and frequency of urine on presentation to the hospital the patient was afebrile and no fever was recorded subsequently patient did have white count of 22.6 with a left shift k idney function has been normal liver enzymes are normal patient did have a positive UA influenza RSV and COVID testing was negative urine is showing a yeast patient's blood culture has been negative patient did have x-ray of the foot tibia and fibula no evidence of any acute fracture chest x-ray reported negative for acute cardiopulmonary disease patient was started on vancomycin infectious disease was consulted for further management of antibiotic therapy Review of Systems Positive point has been mentioned in the HPI rest of the systems are negative Past Medical History Past Medical History: COPD, Osteoarthritis (OA) History of Any Multi-Drug Resistant Organisms: None Reported Past Surgical History: Cholecystectomy, Hysterectomy, Joint Replacement, Tonsillectomy Additional Past Surgical History / Comment(s): left knee Past Anesthesia/Blood Transfusion Reactions: No Reported Reaction Past Psychological History: No Psychological Hx Reported Smoking Status: Former smoker Past Alcohol Use History: None Reported Past Drug Use History: None Reported - Past Family History Mother History Unknown: Yes Father Family Medical History: Congestive Heart Failure (CHF), Hypertension Medications and Allergies Home Medications Medication Instructions Recorded Confirmed Type Albuterol Nebulized [Ventolin 3 ml INHALATION RT-QID 10/03/22 10/17/22 History Nebulized] Albuterol Sulfate [Ventolin HFA] 2 puff INHALATION RT-QID PRN 10/03/22 10/17/22 History Atorvastatin Calcium [Lipitor] 80 mg PO DAILY 10/03/22 10/17/22 History Budesonide-Formot 160-4.5 Mcg 1 puff INHALATION RT-BID 10/03/22 10/17/22 History [Symbicort 160-4.5 Mcg Inhaler] Ergocalciferol [Vitamin D2 (1250 2,500 mcg PO Q28D 10/03/22 10/17/22 History Mcg = 24192 Iu)] Ketotifen 0.025% Ophth Soln 1 drop BOTH EYES BID 10/03/22 10/17/22 History [Zaditor] Loratadine [Claritin] 10 mg PO DAILY 10/03/22 10/17/22 History Metoclopramide [Reglan] 10 mg PO TID PRN 10/03/22 10/17/22 History Montelukast [Singulair] 10 mg PO HS 10/03/22 10/17/22 History Naloxegol Oxalate [Movantik] 25 mg PO DAILY 10/03/22 10/17/22 History Omeprazole [PriLOSEC] 20 mg PO BID 10/03/22 10/17/22 History Ondansetron [Zofran] 4 mg PO DAILY 10/03/22 10/17/22 History Potassium Chloride [Klor-Con M20] 20 meq PO BID 10/03/22 10/17/22 History QUEtiapine FUMARATE [QUEtiapine 300 mg PO HS 10/03/22 10/17/22 History FUMARATE ER] Sucralfate [Carafate] 1 gm PO QID 10/03/22 10/17/22 History rOPINIRole HCL 0.25 mg PO HS 10/03/22 10/17/22 History Albuterol Nebulized [Ventolin 2.5 mg INHALATION RT-Q2H PRN ml 10/13/22 10/17/22 Rx Nebulized] Aspirin 81 mg PO DAILY #100 tab 10/13/22 10/17/22 Rx Clopidogrel [Plavix] 75 mg PO DAILY #30 tab 10/13/22 10/17/22 Rx Allergies Allergy/AdvReac Type Severity Reaction Status Date / Time No Known Allergies Allergy Verified 10/17/22 18:33 Physical Exam Vitals: Vital Signs Temp Pulse Pulse Resp BP Pulse Ox 10/19/22 11:24 80 10/19/22 11:15 80 10/19/22 07:25 88 10/19/22 07:21 97.6 F 93 17 99/67 96 10/19/22 07:10 88 96 10/19/22 02:33 97.6 F 84 17 102/51 96 10/18/22 20:12 89 10/18/22 20:00 18 10/18/22 19:59 85 10/18/22 19:45 97.6 F 98 18 98/65 93 L 10/18/22 15:31 88 10/18/22 15:19 88 10/18/22 14:53 97.8 F 61 16 102/68 94 L Intake and Output 10/18/22 10/19/22 10/19/22 22:59 06:59 14:59 Intake Total 180 Output Total 600 450 Balance -600 -270 Intake: Oral 180 Output: Urine 600 450 Other: Voiding Method External Catheter External Catheter # Voids 600 1 GENERAL DESCRIPTION: Middle-aged female lying in bed, no distress. No tachypnea or accessory muscle of respiration use. HEENT: Shows Pallor , no scleral icterus. Oral mucous membrane is dry. No pharyngeal erythema or thrush NECK: Trachea central, no thyromegaly. LUNGS: Unlabored breathing. Clear to auscultation anteriorly. No wheeze or crackle. HEART: S1, S2, regular rate and rhythm. No loud murmur ABDOMEN: Soft, no tenderness , guarding or rigidity, no organomegaly EXTREMITIES: Left lower extremity with minimal swelling did have some blister with clear fluid no significant redness SKIN: No rash, no masses palpable. NEUROLOGICAL: The patient is awake, alert, oriented x3, mood and affect normal. Results CBC & Chem 7: 10/20/22 04:50 10/22/22 05:48 Labs: Microbiology - Last 24 Hours (Table) 10/18/22 07:07 Urine Culture - Preliminary Urine,Voided Yeast species 10/17/22 22:15 Blood Culture - Preliminary Blood No Growth after 24 hours 10/17/22 22:30 Blood Culture - Preliminary Blood No Growth after 24 hours Assessment and Plan (1) Leukocytosis Current Visit: Yes Status: Acute Code(s): D72.829 - ELEVATED WHITE BLOOD CELL COUNT, UNSPECIFIED SNOMED Code(s): 736793725 Plan: 1patient with the left lower extremity swelling and some blister formation likely fluid overload currently no significant redness or any purulence clinic suspicious remains to be low for cellulitis. 2patient did have a positive UA with a urinary symptoms suggestive of symptomatic UTI with urine now showing yeast likely responsible for this elevated white count and we'll see response to the treatment for it. 3we will start the patient on Diflucan 100 milligrams p.o. daily and discontinue vancomycin. 4we will obtain her left lower extremity Doppler to make sure no evidence of any DVT if negative will apply Brent wrap to the Just above the toe to below the knee to get the swelling down. We will follow on clinical condition and cultures to further adjust medication if needed Thank you for this consultation will follow this patient along with you Time with Patient: Greater than 30
[2022-10-20] MEDS: PANTOPRAZOLE 40 MG TABLET PO SCH (06:24)
[2022-10-20] MEDS: ALBUTEROL NEBULIZED 2.5 MG/3 ML INHALATION SCH ×4 (07:15→19:37)
[2022-10-20 08:30] LABS: Basophils # (A) 0.04 X 10*3/uL (0.00-0.10); Basophils % (A) 0.4 %; Eosinophils # (A) 0.16 X 10*3/uL (0.04-0.35); Eosinophils % (A) 1.7 %; HCT 29.6 % (37.2-46.3); Immature Grans, Automated 0.5 %; Lymphocytes # (A) 0.95 X 10*3/uL (0.90-5.00); Lymphocytes % (A) 9.9 %; MCH 28.3 pg (27.0-32.0); MCHC 30.4 g/dL (32.0-37.0); MCV 93.1 fL (80.0-97.0); Mean Platelet Volume 9.4 fL (9.5-12.2); Monocytes # (A) 0.41 X 10*3/uL (0.20-1.00); Monocytes % (A) 4.3 %; NRBC Per 100 WBC 0 /100 WBCS (0.0-0.0); Neutrophils # (A) 7.96 X 10*3/uL (1.80-7.70); Neutrophils % (A) 83.2 %; Platelet Count 607 X 10*3/uL (140-440); RBC 3.18 X 10*6/uL (4.10-5.20); RDW 17.4 % (11.5-14.5); WBC 9.57 X 10*3/uL (4.50-10.00)
[2022-10-20 08:45] LABS: African American GFR (CKD) 128.5 (60.0-200.0); Albumin 2.1 g/dL (3.8-4.9); Albumin/Globulin Ratio 1.11 (1.60-3.17); Anion Gap 9.5 mmol/L (10.00-18.00); BUN/Creat Ratio 9.25 Ratio (12.00-20.00); Blood Urea Nitrogen 3.7 mg/dL (9.0-27.0); Calcium 8.5 mg/dL (8.7-10.3); Carbon Dioxide 22.5 mmol/L (20.0-27.5); Globulin 1.9 g/dL (1.6-3.3); Non-African American GFR(CKD) 110.8 (60.0-200.0); Potassium 3.3 mmol/L (3.5-5.5); Total Bilirubin 0.4 mg/dL (0.30-1.20)
[2022-10-20] MEDS: ASPIRIN 81 MG PO SCH (08:45)
[2022-10-20] MEDS: LORATADINE 10 MG TAB PO SCH (08:46)
[2022-10-20] MEDS: FLUCONAZOLE 100 MG TAB PO SCH (08:46)
[2022-10-20] MEDS: QUEtiapine 50 MG TAB PO SCH ×2 (08:46→23:51)
[2022-10-20] MEDS: HEPARIN SODIUM,PORCINE/PF 5,000 UNIT/0.5 ML SYRINGE SQ SCH ×3 (08:46→23:52)
[2022-10-20] MEDS: CLOPIDOGREL 75 MG TAB PO SCH (08:46)
[2022-10-20] MEDS: ONDANSETRON 4 MG TAB PO SCH (08:46)
[2022-10-20] MEDS: ATORVASTATIN 80 MG TAB PO SCH (08:46)
--- NOTE | 2022-10-20 08:49 | US ---
EXAMINATION TYPE: US venous doppler duplex LE LT DATE OF EXAM: 10/20/2022 8:22 AM COMPARISON: NONE CLINICAL HISTORY: swelling and blister. edema and blisters SIDE PERFORMED: Left TECHNIQUE: The lower extremity deep venous system is examined utilizing real time linear array sonog vale with graded compression, doppler sonography and color-flow sonography. VESSELS IMAGED: Common Femoral Vein Deep Femoral Vein Greater Saphenous Vein * Femoral Vein Popliteal Vein Small Saphenous Vein * Proximal Calf Veins (* superficial vessels) Left Leg: Negative for DVT IMPRESSION: 1. Left lower extremity ultrasound negative for deep venous thrombosis.
[2022-10-20] MEDS ORDERED: VANCOMYCIN TROUGH DUE 1 EACH MISC MISCELLANE ONE (10:00)
[2022-10-20] MEDS: SYMBICORT 160-4.5 MCG INHALER INHALATION SCH (19:37)
[2022-10-20] MEDS: MIDODRINE 5 MG TAB PO SCH (19:45)
--- NOTE | 2022-10-20 20:32 | P.PN ---
Subjective Progress Note Date: 10/20/22 Principal diagnosis: Leukocytosis/UTI Patient is a 62-year-old female presenting to the hospital with multiple symptoms including left lower extremity swelling and some blisters and pain also have urinary symptoms of burning and frequency patient did have elevated white count initially treated for cellulitis. On today's evaluation that is 10/20/2022, the patient denies having any fever or any chills, the patient is breathing comfortably no chest pain shortness of br eath or cough urinary symptoms slightly decreased but not resolved lower extremity swelling has improved and feeling better with Brent wraps Objective - Vital Signs Vital signs: Vital Signs Temp 98.1 F 10/20/22 07:21 Pulse 80 10/20/22 11:15 Resp 17 10/20/22 07:21 BP 89/64 10/20/22 07:21 Pulse Ox 90 L 10/20/22 07:21 FiO2 Intake & Output 10/19/22 10/20/22 10/20/22 18:59 06:59 18:59 Intake Total 180 180 Output Total 950 950 Balance -770 -950 180 Weight 51.256 kg Intake: Oral 180 180 Output: Urine 950 950 Other: Voiding Method External Catheter External Catheter # Voids 1 - Exam GENERAL DESCRIPTION: Middle-aged female lying in bed in no distress RESPIRATORY SYSTEM: Unlabored breathing , decreased breath sounds at bases HEART: S1 S2 regular rate and rhythm , ABDOMEN: Soft , no tenderness EXTREMITIES: Bilateral lower extremity are currently wrapped in Brent wrap - Labs CBC & Chem 7: 10/20/22 04:50 10/20/22 04:50 Labs: Abnormal Lab Results - Last 24 Hours (Table) 10/20/22 10/20/22 Range/Units 04:50 04:50 RBC 3.18 L (4.10-5.20) X 10*6/uL Hgb 9.0 L (12.0-15.0) g/dL Hct 29.6 L (37.2-46.3) % MCHC 30.4 L (32.0-37.0) g/dL RDW 17.4 H (11.5-14.5) % Plt Count 607 H (140-440) X 10*3/uL MPV 9.4 L (9.5-12.2) fL Immature Gran # 0.05 H (0.00-0.04) X 10*3/uL Neutrophils # 7.96 H (1.80-7.70) X 10*3/uL Potassium 3.3 L (3.5-5.5) mmol/L Anion Gap 9.50 L (10.00-18.00) mmol/L BUN 3.7 L (9.0-27.0) mg/dL Creatinine 0.4 L (0.6-1.5) mg/dL BUN/Creatinine Ratio 9.25 L (12.00-20.00) Ratio Calcium 8.5 L (8.7-10.3) mg/dL Alkaline Phosphatase 148 H (41-126) U/L C-Reactive Protein 2.00 H (0.00-0.80) mg/dL Total Protein 4.0 L (6.2-8.2) g/dL Albumin 2.1 L (3.8-4.9) g/dL Albumin/Globulin Ratio 1.11 L (1.60-3.17) g/dL Microbiology - Last 24 Hours (Table) 10/18/22 07:07 Urine Culture - Final Urine,Voided [place] albicans 10/17/22 22:30 Blood Culture - Preliminary Blood No Growth after 48 hours 10/17/22 22:15 Blood Culture - Preliminary Blood No Growth after 48 hours Assessment and Plan (1) Leukocytosis Current Visit: Yes Status: Acute Code(s): D72.829 - ELEVATED WHITE BLOOD CELL COUNT, UNSPECIFIED SNOMED Code(s): 940399675 (2) UTI (urinary tract infection) Current Visit: Yes Status: Acute Code(s): N39.0 - URINARY TRACT INFECTION, SITE NOT SPECIFIED SNOMED Code(s): 57717942 Plan: 1patient with the left lower extremity swelling and some blister formation likely fluid overload currently no significant redness or any purulence clinic suspicious remains to be low for cellulitis. 2patient did have a positive UA with a urinary symptoms suggestive of symptomatic UTI with urine now showing yeast. 3patient to continue with Diflucan 100 milligrams p.o. daily as the patient white count has normalized 4 lower extremity Doppler was negative for DVT continue with Brent wrap
--- NOTE | 2022-10-21 06:53 | P.PN ---
Subjective Progress Note Date: 10/20/22 This is a 62-year-old female who is a patient of Dr. Staples was recently admitted with pain discharged one week prior and coming back for lower extremity swelling with concerns for possible cellulitis and also having some burning and pain with urination. Patient was initiated on antibiotics with infectious disease on consult. Cellulitis unlikely per ID and most likely due to volume overload recommending Brent wraps and elevation to lower extremities. Lower extremities improving with the Brent wraps and patient also continues to report some burning with urination. Urine cultures finalized showing yeast and is maintained on Diflucan. Patient was a poor social support and living situation with continued weakness recommending ECF with case management and PT/OT therapy following. Review of systems: Constitutional: No reports of fatigue, fever, or chills Cardiovascular: No reports of chest pain or palpitations Respiratory: No reports of shortness of breath or cough GI: reports of nausea, no reports of of vomiting, : No reports of dysuria or retention Neurovascular: reports of generalized weakness, All medications have been reviewed Active Medications Acetaminophen (Acetaminophen Tab 325 Mg Tab) 650 mg PO Q8HR PRN PRN Reason: Fever and/ or Pain Last Admin: 10/19/22 20:22 Dose: 650 mg Albuterol Sulfate (Albuterol Nebulized 2.5 Mg/3 Ml) 2.5 mg INHALATION RT-Q2H PRN PRN Reason: Shortness Of Breath Or Wheezing Albuterol Sulfate (Albuterol Nebulized 2.5 Mg/3 Ml) 2.5 mg INHALATION RT-QID [facility] Last Admin: 10/20/22 19:37 Dose: 2.5 mg Aspirin (Aspirin 81 Mg) 81 mg PO DAILY [facility] Last Admin: 10/20/22 08:45 Dose: 81 mg Atorvastatin Calcium (Atorvastatin 80 Mg Tab) 80 mg PO DAILY [facility] Last Admin: 10/20/22 08:46 Dose: 80 mg Budesonide/Formoterol Fumarate (Symbicort 160-4.5 Mcg Inhaler) 1 puff INHALATION RT-BID [facility] Last Admin: 10/20/22 19:37 Dose: 1 puff Clopidogrel Bisulfate (Clopidogrel 75 Mg Tab) 75 mg PO DAILY [facility] Last Admin: 10/20/22 08:46 Dose: 75 mg Fluconazole (Fluconazole 100 Mg Tab) 100 mg PO DAILY [facility]; Protocol Last Admin: 10/20/22 08:46 Dose: 100 mg Heparin Sodium (Porcine) (Heparin Sodium,Porcine/Pf 5,000 Unit/0.5 Ml Syringe) 5,000 unit SQ Q8HR [facility] Last Admin: 10/20/22 23:52 Dose: Not Given Loratadine (Loratadine 10 Mg Tab) 10 mg PO DAILY [facility] Last Admin: 10/20/22 08:46 Dose: 10 mg Metoclopramide HCl (Metoclopramide 10 Mg Tab) 10 mg PO TID PRN PRN Reason: gerd Midodrine (Midodrine 5 Mg Tab) 5 mg PO AC-BID [facility] Last Admin: 10/20/22 19:45 Dose: 5 mg Miscellaneous Information (Potassium Replacement Protocol 1 Each Misc) 1 each MISCELLANE DAILY PRN; Protocol PRN Reason: Per Protocol Naloxone HCl (Naloxone 0.4 Mg/Ml 1 Ml Vial) 0.2 mg IV Q2M PRN PRN Reason: Opioid Reversal Ondansetron HCl (Ondansetron 4 Mg Tab) 4 mg PO DAILY [facility] Last Admin: 10/20/22 08:46 Dose: 4 mg Pantoprazole Sodium (Pantoprazole 40 Mg Tablet) 40 mg PO AC-BRKFST [facility] Last Admin: 10/20/22 06:24 Dose: 40 mg Quetiapine Fumarate (Quetiapine 50 Mg Tab) 150 mg PO BID [facility] Last Admin: 10/20/22 23:51 Dose: 150 mg Ropinirole HCl (Ropinirole Hcl 0.25 Mg Tab) 0.25 mg PO HS [facility] Last Admin: 10/20/22 23:51 Dose: 0.25 mg PHYSICAL EXAMINATION: GENERAL: The patient is alert and oriented x4, Well developed, well nourished. HEENT: Pupils are round and equally reacting to light. EOMI. no scleral icterus. No conjunctival pallor. Normocephalic, atraumatic. No pharyngeal erythema. No thyromegaly. CARDIOVASCULAR: S1 and S2 muffled PULMONARY: diminished breath sounds bilaterally with no wheezing or rhonchi noted. ABDOMEN: soft. Nontender on exam. obese. non-distended, normoactive bowel sounds. No palpable organomegaly. MUSCULOSKELETAL: No joint swelling or deformity. EXTREMITIES: No cyanosis, clubbing, or pedal edema. NEUROLOGICAL: Gross neurological examination did not reveal any focal deficits. Diffuse weakness SKIN: No rashes. Assessment: Bilateral lower Extremity edema with concerns for possible cellulitis Possible acute urinary tract infection, present on admission Leukocytosis secondary to above Mild protein calorie malnutrition with a BMI of 22.1 GI prophylaxis DVT prophylaxis Full code Plan: Recommend to continue with current medications and management infectious disease following. Lower extremity edema improving with Brent wraps and cellulitis ruled out per ID more like volume overload and edema Urine culture finalized showing [place] Fink and will continue Diflucan Patient with a poor social support and continued weakness with PT/OT therapy following recommending ECF Case management following working on accepting facilities and insurance authorization Recommend continue with Brent wraps to bilateral lower extremities and elevating while at rest Encouraged oral intake and increase activity as tolerated Recommend to monitor vital signs closely as blood pressure has been lower Due to multiple complex medical issues, prognosis is guarded Possible discharge to ECF in 24-48 hours. The impression and plan of care has been dictated by Luann Cortes, nurse practitioner as directed. Dr. Moisés MD I have performed a history and examination and MDM of this patient, discussed the same with the dictator, and agree with the dictator's assessment and plan as written ,documented as a scribe. Based on total visit time, I have performed more than 50% of the visit. Any additional findings or plans will be noted. Objective - Vital Signs Vital signs: Vital Signs Temp 98.1 F 10/20/22 07:21 Pulse 80 10/20/22 11:15 Resp 17 10/20/22 07:21 BP 89/64 10/20/22 07:21 Pulse Ox 90 L 10/20/22 07:21 FiO2 Intake & Output 10/19/22 10/20/22 10/20/22 18:59 06:59 18:59 Intake Total 180 180 Output Total 950 950 Balance -770 -950 180 Weight 51.256 kg Intake: Oral 180 180 Output: Urine 950 950 Other: Voiding Method External Catheter External Catheter # Voids 1 - Labs CBC & Chem 7: 10/20/22 04:50 10/20/22 04:50 Labs: Abnormal Lab Results - Last 24 Hours (Table) 10/20/22 10/20/22 Range/Units 04:50 04:50 RBC 3.18 L (4.10-5.20) X 10*6/uL Hgb 9.0 L (12.0-15.0) g/dL Hct 29.6 L (37.2-46.3) % MCHC 30.4 L (32.0-37.0) g/dL RDW 17.4 H (11.5-14.5) % Plt Count 607 H (140-440) X 10*3/uL MPV 9.4 L (9.5-12.2) fL Immature Gran # 0.05 H (0.00-0.04) X 10*3/uL Neutrophils # 7.96 H (1.80-7.70) X 10*3/uL Potassium 3.3 L (3.5-5.5) mmol/L Anion Gap 9.50 L (10.00-18.00) mmol/L BUN 3.7 L (9.0-27.0) mg/dL Creatinine 0.4 L (0.6-1.5) mg/dL BUN/Creatinine Ratio 9.25 L (12.00-20.00) Ratio Calcium 8.5 L (8.7-10.3) mg/dL Alkaline Phosphatase 148 H (41-126) U/L C-Reactive Protein 2.00 H (0.00-0.80) mg/dL Total Protein 4.0 L (6.2-8.2) g/dL Albumin 2.1 L (3.8-4.9) g/dL Albumin/Globulin Ratio 1.11 L (1.60-3.17) g/dL Microbiology - Last 24 Hours (Table) 10/18/22 07:07 Urine Culture - Final Urine,Voided [place] albicans 10/17/22 22:30 Blood Culture - Preliminary Blood No Growth after 48 hours 10/17/22 22:15 Blood Culture - Preliminary Blood No Growth after 48 hours
[2022-10-21] MEDS: SYMBICORT 160-4.5 MCG INHALER INHALATION SCH ×2 (08:23→19:02)
[2022-10-21] MEDS: ALBUTEROL NEBULIZED 2.5 MG/3 ML INHALATION SCH ×4 (08:23→19:02)
[2022-10-21] MEDS: QUEtiapine 50 MG TAB PO SCH ×2 (08:54→22:59)
[2022-10-21] MEDS: MIDODRINE 5 MG TAB PO SCH ×2 (08:54→18:13)
[2022-10-21] MEDS: PANTOPRAZOLE 40 MG TABLET PO SCH (08:55)
[2022-10-21] MEDS: CLOPIDOGREL 75 MG TAB PO SCH (08:55)
[2022-10-21] MEDS: FLUCONAZOLE 100 MG TAB PO SCH (08:55)
[2022-10-21] MEDS: ASPIRIN 81 MG PO SCH (08:55)
[2022-10-21] MEDS: LORATADINE 10 MG TAB PO SCH (08:55)
[2022-10-21] MEDS: ONDANSETRON 4 MG TAB PO SCH (08:55)
[2022-10-21] MEDS: HEPARIN SODIUM,PORCINE/PF 5,000 UNIT/0.5 ML SYRINGE SQ SCH ×3 (08:55→22:59)
[2022-10-21] MEDS: ATORVASTATIN 80 MG TAB PO SCH (08:55)
[2022-10-21 10:58] LABS: Magnesium 1.4 mg/dL (1.5-2.4)
[2022-10-21 11:03] LABS: African American GFR (CKD) 128.5 (60.0-200.0); Anion Gap 6.6 mmol/L (10.00-18.00); BUN/Creat Ratio 21.75 Ratio (12.00-20.00); Blood Urea Nitrogen 8.7 mg/dL (9.0-27.0); Calcium 9.2 mg/dL (8.7-10.3); Carbon Dioxide 26.4 mmol/L (20.0-27.5); Non-African American GFR(CKD) 110.8 (60.0-200.0); Potassium 3.4 mmol/L (3.5-5.5)
[2022-10-21] MEDS ORDERED: Potassium Replacement Protocol 1 EACH MISC MISCELLANE PRN (15:33)
[2022-10-21] MEDS ORDERED: Magnesium Replacement Protocol 1 EACH MISC MISCELLANE PRN (15:33)
--- NOTE | 2022-10-21 16:09 | P.PN ---
Subjective Progress Note Date: 10/21/22 Principal diagnosis: Leukocytosis/UTI Patient is a 62-year-old female presenting to the hospital with multiple symptoms including left lower extremity swelling and some blisters and pain also have urinary symptoms of burning and frequency patient did have elevated white count initially treated for cellulitis. On today's evaluation that is 10/21/2022, the patient remains to be afebrile, the patient is breathing comfortably on room air, the patient denies chest pain shortness of breath or cough urinary symptoms has decreased in intensity, lower extremity swelling has improved and feeling better with Brent wraps Objective - Vital Signs Vital signs: Vital Signs Temp 97.6 F 10/21/22 07:51 Pulse 112 H 10/21/22 08:44 Resp 16 10/21/22 07:51 BP 108/73 10/21/22 07:51 Pulse Ox 98 10/21/22 07:51 FiO2 Intake & Output 10/20/22 10/21/22 10/21/22 18:59 06:59 18:59 Intake Total 180 Output Total 900 950 Balance -720 -950 Weight 51.256 kg Intake: Oral 180 Output: Urine 900 950 Other: Voiding Method External Catheter External Catheter - Exam GENERAL DESCRIPTION: Middle-aged female lying in bed in no distress RESPIRATORY SYSTEM: Unlabored breathing , decreased breath sounds at bases HEART: S1 S2 regular rate and rhythm , ABDOMEN: Soft , no tenderness EXTREMITIES: Bilateral lower extremity are currently wrapped in Brent wrap - Labs CBC & Chem 7: 10/20/22 04:50 10/21/22 06:41 Labs: Abnormal Lab Results - Last 24 Hours (Table) 10/21/22 Range/Units 06:41 Potassium 3.4 L (3.5-5.5) mmol/L Anion Gap 6.60 L (10.00-18.00) mmol/L BUN 8.7 L (9.0-27.0) mg/dL Creatinine 0.4 L (0.6-1.5) mg/dL BUN/Creatinine Ratio 21.75 H (12.00-20.00) Ratio Magnesium 1.4 L (1.5-2.4) mg/dL Microbiology - Last 24 Hours (Table) 10/17/22 22:30 Blood Culture - Preliminary Blood No Growth after 72 hours 10/17/22 22:15 Blood Culture - Preliminary Blood No Growth after 72 hours 10/18/22 07:07 Urine Culture - Final Urine,Voided [place] albicans Assessment and Plan (1) Leukocytosis Current Visit: Yes Status: Acute Code(s): D72.829 - ELEVATED WHITE BLOOD CELL COUNT, UNSPECIFIED SNOMED Code(s): 467740877 (2) UTI (urinary tract infection) Current Visit: Yes Status: Acute Code(s): N39.0 - URINARY TRACT INFECTION, S ITE NOT SPECIFIED SNOMED Code(s): 12396959 Plan: 1patient with the left lower extremity swelling and some blister formation likely fluid overload currently no significant redness or any purulence clinic suspicious remains to be low for cellulitis. 2patient did have a positive UA with a urinary symptoms suggestive of symptomatic UTI with urine now showing yeast. 3lower extremity Doppler was negative for DVT continue with Brent wrap The patient white count has normalized, patient to continue with Diflucan 100 milligrams p.o. daily Time with Patient: Less than 30
[2022-10-21] MEDS: MAGNESIUM SULFATE-D5W PMX 1 GM in DEXTROSE/WATER 1 100ML.BAG IVPB SCH ×3 (17:10→19:59)
[2022-10-21] MEDS: POTASSIUM CHLORIDE ER 20 MEQ TAB.ER PO SCH (17:10)
[2022-10-21 17:28] LABS: Glucose,Whole Blood 88 mg/dL (70-110)
[2022-10-21] MEDS: POTASSIUM CHLORIDE 10 MEQ in WATER FOR INJECTION 1 100ML.BAG IVPB SCH ×2 (19:59→22:04)
[2022-10-21] MEDS: ACETAMINOPHEN TAB 325 MG TAB PO PRN (20:57)
[2022-10-21] MEDS ORDERED: POTASSIUM BICARB-CITRIC ACID 25 MEQ TABLET.EFF PO ONE (22:00)
--- NOTE | 2022-10-22 03:26 | P.PN ---
Subjective Progress Note Date: 10/21/22 This is a 62-year-old female who is a patient of Dr. Staples was recently admitted with pain discharged one week prior and coming back for lower extremity swelling with concerns for possible cellulitis and also having some burning and pain with urination. Patient was initiated on antibiotics with infectious disease on consult. Cellulitis unlikely per ID and most likely due to volume overload recommending Brent wraps and elevation to lower extremities. Lower extremities improving with the Brent wraps and patient also continues to report some burning with urination. Urine cultures finalized showing yeast and is maintained on Diflucan. Patient was a poor social support and living situation with continued weakness recommending ECF with case management and PT/OT therapy following. 10/21/2022 Patient is seen and evaluated in follow-up this morning lethargic although easily arousable. Patient being followed by infectious disease maintained on Diflucan his urine culture finalized showing [place] albicans. Cellulitis less likely of lower extremities and swelling is improving with Brent wraps noted. Patient having some increased anxiety with continued weakness. Recommend physical therapy daily. Case management following working on possibly ECF. Patient has poor social support and would likely benefit from rehab for continued strength and mobility. Patient is currently afebrile denies chest pain or shortness of breath. Patient reports to having some irritation with urination although feels somewhat improved. Patient's oral intake is fair and needs encouragement. Encouraged to increase activity as tolerated. Recommended replace electrolytes per protocol will follow-up with repeat labs. Review of systems: Constitutional: reports of fatigue, no reports of fever, or chills, reports anxiety Cardiovascular: No reports of chest pain or palpitations Respiratory: No reports of shortness of breath or cough GI: reports of nausea, no reports of of vomiting, : reports of mild dysuria and no reports of retention Neurovascular: reports of generalized weakness All medications have been reviewed PHYSICAL EXAMINATION: GENERAL: The patient is alert and oriented x4, Well developed, well nourished. Elderly-appearing female HEENT: Pupils are round and equally reacting to light. EOMI. no scleral icterus. No conjunctival pallor. Normocephalic, atraumatic. No pharyngeal erythema. No thyromegaly. CARDIOVASCULAR: S1 and S2 muffled PULMONARY: diminished breath sounds bilaterally with no wheezing or rhonchi noted. ABDOMEN: soft. Nontender on exam. non-distended, normoactive bowel sounds. No palpable organomegaly. MUSCULOSKELETAL: No joint swelling or deformity. EXTREMITIES: No cyanosis, clubbing, mild lower extremity edema with some improvement and Brent wraps noted NEUROLOGICAL: Gross neurological examination did not reveal any focal deficits. Diffuse weakness SKIN: No rashes. Assessment: Bilateral lower Extremity edema with concerns for possible cellulitis, suspicion is low most likely volume overload Possible acute urinary tract infection, present on admission Leukocytosis secondary to above, improved Mild protein calorie malnutrition with a BMI of 22.1 Hypokalemia, hypomagnesemia most likely due to poor oral intake GI prophylaxis DVT prophylaxis Full code Plan: Recommend to continue with current medications and management with infectious disease following. Lower extremity edema improving with Brent wraps and cellulitis ruled out per ID m ore like volume overload and edema Urine culture finalized showing [place] Fink and will continue Diflucan Patient with a poor social support and continued weakness with PT/OT therapy following recommending ECF Case management following working on accepting facilities and insurance authorization Recommend to continue with Brent wraps to bilateral lower extremities and elevating while at rest Encouraged oral intake and increase activity as tolerated Recommend to monitor vital signs closely as blood pressure has been lower, added midodrine Due to multiple complex medical issues, prognosis is guarded The impression and plan of care has been dictated by Luann Cortes, prac titioner as directed. Dr. Moisés MD I have performed a history and examination and MDM of this patient, discussed the same with the dictator, and agree with the dictator's assessment and plan as written ,documented as a scribe. Based on total visit time, I have performed more than 50% of the visit. Any additional findings or plans will be noted. Objective - Vital Signs Vital signs: Vital Signs Temp 98.0 F 10/21/22 13:55 Pulse 114 H 10/21/22 13:55 Resp 16 10/21/22 13:55 BP 100/67 10/21/22 13:55 Pulse Ox 95 10/21/22 13:55 FiO2 Intake & Output 10/20/22 10/21/22 10/21/22 18:59 06:59 18:59 Intake Total 180 Output Total 900 950 200 Balance -720 -950 -200 Weight 51.256 kg Intake: Oral 180 Output: Urine 900 950 200 Other: Voiding Method External Catheter External Catheter - Labs CBC & Chem 7: 10/20/22 04:50 10/21/22 06:41 Labs: Abnormal Lab Results - Last 24 Hours (Table) 10/21/22 Range/Units 06:41 Potassium 3.4 L (3.5-5.5) mmol/L Anion Gap 6.60 L (10.00-18.00) mmol/L BUN 8.7 L (9.0-27.0) mg/dL Creatinine 0.4 L (0.6-1.5) mg/dL BUN/Creatinine Ratio 21.75 H (12.00-20.00) Ratio Magnesium 1.4 L (1.5-2.4) mg/dL Microbiology - Last 24 Hours (Table) 10/17/22 22:30 Blood Culture - Preliminary Blood No Growth after 72 hours 10/17/22 22:15 Blood Culture - Preliminary Blood No Growth after 72 hours 10/18/22 07:07 Urine Culture - Final Urine,Voided [place] albicans
[2022-10-22] MEDS: ALBUTEROL NEBULIZED 2.5 MG/3 ML INHALATION PRN (05:04)
[2022-10-22] MEDS: SYMBICORT 160-4.5 MCG INHALER INHALATION SCH ×2 (05:16→19:51)
[2022-10-22] MEDS: ALBUTEROL NEBULIZED 2.5 MG/3 ML INHALATION SCH ×4 (07:40→19:51)
[2022-10-22] MEDS: PANTOPRAZOLE 40 MG TABLET PO SCH (08:58)
[2022-10-22] MEDS: LORATADINE 10 MG TAB PO SCH (08:58)
[2022-10-22] MEDS: ATORVASTATIN 80 MG TAB PO SCH (08:58)
[2022-10-22] MEDS: QUEtiapine 50 MG TAB PO SCH ×2 (08:58→20:31)
[2022-10-22] MEDS: ONDANSETRON 4 MG TAB PO SCH (08:58)
[2022-10-22] MEDS: MIDODRINE 5 MG TAB PO SCH ×2 (08:58→15:50)
[2022-10-22] MEDS: HEPARIN SODIUM,PORCINE/PF 5,000 UNIT/0.5 ML SYRINGE SQ SCH ×3 (08:59→23:24)
[2022-10-22] MEDS: ASPIRIN 81 MG PO SCH (08:59)
[2022-10-22] MEDS: CLOPIDOGREL 75 MG TAB PO SCH (08:59)
[2022-10-22 10:25] LABS: African American GFR (CKD) 128.5 (60.0-200.0); Anion Gap 6.9 mmol/L (10.00-18.00); BUN/Creat Ratio 16.75 Ratio (12.00-20.00); Blood Urea Nitrogen 6.7 mg/dL (9.0-27.0); Calcium 8.8 mg/dL (8.7-10.3); Carbon Dioxide 26.1 mmol/L (20.0-27.5); Non-African American GFR(CKD) 110.8 (60.0-200.0); Potassium 3.1 mmol/L (3.5-5.5)
[2022-10-22] MEDS ORDERED: Potassium Replacement Protocol 1 EACH MISC MISCELLANE PRN ×2 (10:28→14:24)
[2022-10-22 10:30] LABS: Magnesium 2.2 mg/dL (1.5-2.4)
[2022-10-22] MEDS ORDERED: POTASSIUM CHLORIDE ER 20 MEQ TAB.ER PO STA (12:46)
[2022-10-22] MEDS: POTASSIUM CHLORIDE ER 20 MEQ TAB.ER PO SCH ×6 (12:49→15:50)
[2022-10-22] MEDS: FLUCONAZOLE 100 MG TAB PO SCH (12:57)
--- NOTE | 2022-10-22 13:39 | XR ---
EXAMINATION TYPE: XR abdomen acute w cxr DATE OF EXAM: 10/22/2022 1:30 PM INDICATION: Patient age:Female; 62 years old; Reason for study: no bm in 10 days; COMPARISON: None. TECHNIQUE: Two radiographic views of the abdomen (upright and supine) and a frontal chest radiograph were obtained. FINDINGS CHEST: Lungs/Pleura: The lungs are clear. There is no evidence of pleural effusion, focal consolidation or p neumothorax. Mediastinum: Unremarkable. Vasculature: Normal. Heart: Normal in size. Musculoskeletal: The osseous structures are intact. Other findings: No significant. FINDINGS ABDOMEN: Bowel gas pattern: Large amount of stool seen throughout the colon. Normal without dilated loops of s mall or large bowel. Fecal material and gas are demonstrated throughout the colon and rectum. Abnormal calcifications: None. Musculoskeletal: Normal. Other: Right upper quadrant cholecystectomy clips. IMPRESSION: 1. Large stool burden without radiographic evidence for acute abdominal process. 2. No acute cardiopulmonary process
--- NOTE | 2022-10-22 13:47 | P.PN ---
Subjective Progress Note Date: 10/22/22 Principal diagnosis: Leukocytosis/UTI Patient is a 62-year-old female presenting to the hospital with multiple symptoms including left lower extremity swelling and some blisters and pain also have urinary symptoms of burning and frequency patient did have elevated white count initially treated for cellulitis. On today's evaluation that is 10/22/2022, the patient continues to be afebrile, the patient is breathing comfortably on room air, the patient denies chest pain shortness of breath however the patient did complain of some dry cough and wants some cough medication, no nausea no vomiting no abdominal pain or pain to the lower extremity Objective - Vital Signs Vital signs: Vital Signs Temp 97.7 F 10/22/22 12:06 Pulse 119 H 10/22/22 12:06 Resp 16 10/22/22 12:06 BP 115/75 10/22/22 12:06 Pulse Ox 96 10/22/22 12:06 FiO2 Intake & Output 10/21/22 10/22/22 10/22/22 18:59 06:59 18:59 Output Total 200 700 Balance -200 -700 Weight 51.256 kg Output: Urine 200 700 Other: Voiding Method External Catheter External Catheter Diaper Incontinent External Catheter - Exam GENERAL DESCRIPTION: Middle-aged female lying in bed in no distress RESPIRATORY SYSTEM: Unlabored breathing , decreased breath sounds at bases HEART: S1 S2 regular rate and rhythm , ABDOMEN: Soft , no tenderness EXTREMITIES: Bilateral lower extremity are currently wrapped in Brent wrap - Labs CBC & Chem 7: 10/20/22 04:50 10/22/22 05:48 Labs: Abnormal Lab Results - Last 24 Hours (Table) 10/22/22 Range/Units 05:48 Potassium 3.1 L (3.5-5.5) mmol/L Anion Gap 6.90 L (10.00-18.00) mmol/L BUN 6.7 L (9.0-27.0) mg/dL Creatinine 0.4 L (0.6-1.5) mg/dL Microbiology - Last 24 Hours (Table) 10/17/22 22:30 Blood Culture - Preliminary Blood No Growth after 96 hours 10/17/22 22:15 Blood Culture - Preliminary Blood No Growth after 96 hours Assessment and Plan (1) Leukocytosis Current Visit: Yes Status: Acute Code(s): D72.829 - ELEVATED WHITE BLOOD CELL COUNT, UNSPECIFIED SNOMED Code(s): 543821213 (2) UTI (urinary tract infection) Current Visit: Yes Status: Acute Code(s): N39.0 - URINARY TRACT INFECTION, SITE NOT SPECIFIED SNOMED Code(s): 77070922 Plan: 1patient with the left lower extremity swelling and some blister formation likely fluid overload currently no significant redness or any purulence clinic suspicious remains to be low for cellulitis. 2patient did have a positive UA with a urinary symptoms suggestive of symptomatic UTI with urine culture grew [place]. 3lower extremity Doppler was negative for DVT continue with Brent wrap 4patient seemed to have shown clinical improvement white count is normal and she will continue with the Diflucan and continue supportive care Time with Patient: Less than 30
[2022-10-22] MEDS: PANTOPRAZOLE 40 MG/10 ML VIAL IVP SCH ×2 (13:51→20:26)
[2022-10-22] MEDS ORDERED: NA PHOS,M-B/NA PHOS,DI-BA 133 ML ENEMA RECTAL ONE (14:42)
--- NOTE | 2022-10-22 14:46 | P.PN ---
Subjective Progress Note Date: 10/22/22 This is a 62-year-old female who is a patient of Dr. Staples was recently admitted with pain discharged one week prior and coming back for lower extremity swelling with concerns for possible cellulitis and also having some burning and pain with urination. Patient was initiated on antibiotics with infectious disease on consult. Cellulitis unlikely per ID and most likely due to volume overload recommending Brent wraps and elevation to lower extremities. Lower extremities improving with the Brent wraps and patient also continues to report some burning with urination. Urine cultures finalized showing yeast and is maintained on Diflucan. Patient was a poor social support and living situation with continued weakness recommending ECF with case management and PT/OT therapy following. 10/21/2022 Patient is seen and evaluated in follow-up this morning lethargic although easily arousable. Patient being followed by infectious disease maintained on Diflucan his urine culture finalized showing [place] albicans. Cellulitis less likely of lower extremities and swelling is improving with Brent wraps noted. Patient having some increased anxiety with continued weakness. Recommend physical therapy daily. Case management following working on possibly ECF. Patient has poor social support and would likely benefit from rehab for continued strength and mobility. Patient is currently afebrile denies chest pain or shortness of breath. Patient reports to having some irritation with urination although feels somewhat improved. Patient's oral intake is fair and needs encouragement. Encouraged to increase activity as tolerated. Recommended replace electrolytes per protocol will follow-up with repeat labs. 10/22/2022 Patient seen and evaluated in follow-up this morning reporting she is nauseated and did have a small episode of emesis. Patient reports she has not had a bowel movement in 10 days and will obtain abdominal x-ray. Will continue with some stool softeners and also an enema and lactulose as x-ray did show evidence of stool burden with no obstruction or loops noted. Patient is afebrile denies chest pain or shortness of breath. Patient reports poor oral intake and needs encouragement. Potassium being replaced per protocol and will add supplementation for daily and recommend follow-up labs. Patient with significant weakness will be working on possibly ECF although will require insurance authorization and needed accepting facility at this time. Patient is maintained on Diflucan with infectious disease following his urine culture finalized showing [place] albicans otherwise negative and not concerned with lower extremity cellulitis most likely from volume overload with chronic stasis. Encouraged oral intake and increased activity as tolerated. Will adjust anti- nausea medications. Review of systems: Constitutional: reports of fatigue, no reports of fever, or chills, reports anxiety Cardiovascular: No reports of chest pain or palpitations Respiratory: No reports of shortness of breath or cough GI: reports of nausea, reports one episode of vomiting, reports no bowel movement in 10 days : reports of mild dysuria and no reports of retention Neurovascular: reports of generalized weakness All medications have been reviewed PHYSICAL EXAMINATION: GENERAL: The patient is alert and oriented x4, Well developed, well nourished. Elderly-appearing female HEENT: Pupils are round and equally reacting to light. EOMI. no scleral icterus. No conjunctival pallor. Normocephalic, atraumatic. No pharyngeal erythema. No thyromegaly. CARDIOVASCULAR: S1 and S2 muffled PULMONARY: diminished breath sounds bilaterally with no wheezing or rhonchi noted. ABDOMEN: soft. Nontender on exam. non-distended, normoactive bowel sounds. No palpable organomegaly. MUSCULOSKELETAL: No joint swelling or deformity. EXTREMITIES: No cyanosis, clubbing, mild lower extremity edema with some improvement and Brent wraps noted NEUROLOGICAL: Gross neurological examination did not reveal any focal deficits. Diffuse weakness SKIN: No rashes. Assessment: Bilateral lower Extremity edema with concerns for possible cellulitis, suspicion is low most likely volume overload Possible acute urinary tract infection, present on admission Leukocytosis secondary to above, improved Mild protein calorie malnutrition with a BMI of 22.1 Hypokalemia, hypomagnesemia most likely due to poor oral intake GI prophylaxis DVT prophylaxis Full code Plan: Recommend to continue with current medications and management with infectious disease following. Lower extremity edema improving with Brent wraps and cellulitis ruled out per ID more like volume overload and edema Urine culture finalized showing [place] Fink and will continue Diflucan Patient did have some emesis today 1 with some nausea and reports she has not had a bowel movement in 10 days. Abdominal x-ray shows stool burden with no obstruction noted or identified increased loops of the bowels will add lactulose and also give when necessary enema and will continue on stool softeners. Potassium continues to be low and will replace per protocol and also provide oral daily supplementation Patient with a poor social support and continued weakness with PT/OT therapy following recommending ECF Case management following working on accepting facilities and insurance authorization Recommend to continue with Brent wraps to bilateral lower extremities and elevating while at rest Encouraged oral intake and increase activity as tolerated Recommend to monitor vital signs closely as blood pressure has been lower, added midodrine Due to multiple complex medical issues, prognosis is guarded The impression and plan of care has been dictated by Luann Cortes, nurse practitioner as directed. Dr. Lorraine MD I have performed a history and examination and MDM of this patient, discussed the same with the dictator, and agree with the dictator's assessment and plan as written ,documented as a scribe. Based on total visit time, I have performed more than 50% of the visit. Any additional findings or plans will be noted. Objective - Vital Signs Vital signs: Vital Signs Temp 97.7 F 10/22/22 12:06 Pulse 119 H 10/22/22 12:06 Resp 16 10/22/22 12:06 BP 115/75 10/22/22 12:06 Pulse Ox 96 10/22/22 12:06 FiO2 Intake & Output 10/21/22 10/22/22 10/22/22 18:59 06:59 18:59 Output Total 200 700 Balance -200 -700 Weight 51.256 kg Output: Urine 200 700 Other: Voiding Method External Catheter External Catheter Diaper Incontinent External Catheter - Labs CBC & Chem 7: 10/20/22 04:50 10/22/22 05:48 Labs: Abnormal Lab Results - Last 24 Hours (Table) 10/22/22 Range/Units 05:48 Potassium 3.1 L (3.5-5.5) mmol/L Anion Gap 6.90 L (10.00-18.00) mmol/L BUN 6.7 L (9.0-27.0) mg/dL Creatinine 0.4 L (0.6-1.5) mg/dL Microbiology - Last 24 Hours (Table) 10/17/22 22:30 Blood Culture - Preliminary Blood No Growth after 96 hours 10/17/22 22:15 Blood Culture - Preliminary Blood No Growth after 96 hours
[2022-10-22] MEDS: LACTULOSE 20 GM/30 ML CUP PO SCH ×2 (15:49→20:30)
[2022-10-22] MEDS: SENNOSIDES 8.6 MG TAB PO SCH (20:27)
[2022-10-22] MEDS: ACETAMINOPHEN TAB 325 MG TAB PO PRN (20:34)
[2022-10-22] MEDS: guaiFENesin-DM 100-10MG/5ML 10 ML CUP PO PRN (23:24)
[2022-10-23] MEDS: guaiFENesin-DM 100-10MG/5ML 10 ML CUP PO PRN (06:41)
[2022-10-23 07:48] LABS: African American GFR (CKD) >90 (>60 ml/min/1.73 sqM); Anion Gap 3 mmol/L; Blood Urea Nitrogen 4 mg/dL (7-17); Carbon Dioxide 25 mmol/L (22-30); Chloride 106 mmol/L (98-107); Glucose 108 mg/dL (74-99); Magnesium 1.4 mg/dL (1.6-2.3); Non-African American GFR(CKD) >90 (>60 ml/min/1.73 sqM); Potassium 3.3 mmol/L (3.5-5.1); Sodium 134 mmol/L (137-145)
[2022-10-23] MEDS: SYMBICORT 160-4.5 MCG INHALER INHALATION SCH ×2 (08:21→19:22)
[2022-10-23] MEDS: ALBUTEROL NEBULIZED 2.5 MG/3 ML INHALATION SCH (08:21)
[2022-10-23] MEDS: PANTOPRAZOLE 40 MG/10 ML VIAL IVP SCH ×2 (08:52→22:02)
[2022-10-23] MEDS: SENNOSIDES 8.6 MG TAB PO SCH ×2 (08:53→22:01)
[2022-10-23] MEDS: LACTULOSE 20 GM/30 ML CUP PO SCH (08:53)
[2022-10-23] MEDS: QUEtiapine 50 MG TAB PO SCH ×3 (08:53→22:45)
[2022-10-23] MEDS: ONDANSETRON 4 MG TAB PO SCH (08:54)
[2022-10-23] MEDS: CLOPIDOGREL 75 MG TAB PO SCH (08:54)
[2022-10-23] MEDS: MIDODRINE 5 MG TAB PO SCH (08:54)
[2022-10-23] MEDS: POTASSIUM CHLORIDE ER 20 MEQ TAB.ER PO SCH ×3 (08:54→13:51)
[2022-10-23] MEDS: ASPIRIN 81 MG PO SCH (08:54)
[2022-10-23] MEDS: HEPARIN SODIUM,PORCINE/PF 5,000 UNIT/0.5 ML SYRINGE SQ SCH ×2 (08:54→17:48)
[2022-10-23] MEDS: ATORVASTATIN 80 MG TAB PO SCH (08:54)
[2022-10-23] MEDS: LORATADINE 10 MG TAB PO SCH (08:54)
[2022-10-23] MEDS: FLUCONAZOLE 100 MG TAB PO SCH (08:54)
[2022-10-23] MEDS: MAGNESIUM SULFATE-D5W PMX 1 GM in DEXTROSE/WATER 1 100ML.BAG IVPB SCH ×3 (09:31→13:53)
[2022-10-23] MEDS ORDERED: MIDODRINE 5 MG TAB PO PRN (09:54)
[2022-10-23] MEDS: IPRATROPIUM-ALBUTEROL 3 ML NEB INHALATION SCH ×2 (10:35→19:22)
[2022-10-23] MEDS: METOPROLOL TARTRATE 12.5 MG TAB PO SCH ×2 (12:11→22:01)
--- NOTE | 2022-10-23 13:30 | P.PN ---
Subjective Progress Note Date: 10/23/22 Principal diagnosis: Leukocytosis/UTI Patient is a 62-year-old female presenting to the hospital with multiple symptoms including left lower extremity swelling and some blisters and pain also have urinary symptoms of burning and frequency patient did have elevated white count initially treated for cellulitis. On today's evaluation that is 10/23/2022, the patient denies any fever or chills, the patient is breathing comfortably on room air, the patient denies chest pain shortness of breath , the patient complaining of cough but not bringing up any sputum no nausea no vomiting no abdominal pain or any diarrhea Objective - Vital Signs Vital signs: Vital Signs Temp 97.5 F L 10/23/22 07:17 Pulse 106 H 10/23/22 10:49 Resp 19 10/23/22 07:17 BP 123/85 10/23/22 07:17 Pulse Ox 97 10/23/22 10:38 FiO2 Intake & Output 10/22/22 10/23/22 10/23/22 18:59 06:59 18:59 Intake Total 200 540 Output Total 650 Balance -450 540 Intake: Oral 200 540 Output: Urine 650 Other: Voiding Method Diaper Diaper Incontinent Incontinent External Catheter External Catheter # Bowel Movements 3 - Exam GENERAL DESCRIPTION: Middle-aged female lying in bed in no distress RESPIRATORY SYSTEM: Unlabored breathing , decreased breath sounds at bases HEART: S1 S2 regular rate and rhythm , ABDOMEN: Soft , no tenderness EXTREMITIES: Bilateral lower extremity are currently wrapped in Brent wrap - Labs CBC & Chem 7: 10/20/22 04:50 10/23/22 07:04 Labs: Abnormal Lab Results - Last 24 Hours (Table) 10/23/22 Range/Units 07:04 Sodium 134 L (137-145) mmol/L Potassium 3.3 L (3.5-5.1) mmol/L BUN 4 L (7-17) mg/dL Creatinine 0.40 L (0.52-1.04) mg/dL Glucose 108 H (74-99) mg/dL Calcium 8.0 L (8.4-10.2) mg/dL Magnesium 1.4 L (1.6-2.3) mg/dL Microbiology - Last 24 Hours (Table) 10/17/22 22:15 Blood Culture - Preliminary Blood No Growth after 120 hours 12/26/22 22:30 Blood Culture - Preliminary Blood No Growth after 120 hours Assessment and Plan (1) Leukocytosis Current Visit: Yes Status: Acute Code(s): D72.829 - ELEVATED WHITE BLOOD CELL COUNT, UNSPECIFIED SNOMED Code(s): 491732510 Plan: 1patient with the left lower extremity swelling and some blister formation likely fluid overload currently no significant redness or any purulence clinic suspicious remains to be low for cellulitis. 2patient did have a positive UA with a urinary symptoms suggestive of symptomatic UTI with urine culture grew [place]. 3lower extremity Doppler was negative for DVT continue with Brent wrap 4patient has shown to have shown clinical improvement and the patient white count is normal as of 10/20/2022 5-patient to continue with the Diflucan and continue supportive care Time with Patient: Less than 30
--- NOTE | 2022-10-23 17:15 | P.PN ---
Subjective Progress Note Date: 10/23/22 This is a 62-year-old female who is a patient of Dr. Staples was recently admitted with pain discharged one week prior and coming back for lower extremity swelling with concerns for possible cellulitis and also having some burning and pain with urination. Patient was initiated on antibiotics with infectious disease on consult. Cellulitis unlikely per ID and most likely due to volume overload recommending Brent wraps and elevation to lower extremities. Lower extremities improving with the Brent wraps and patient also continues to report some burning with urination. Urine cultures finalized showing yeast and is maintained on Diflucan. Patient was a poor social support and living situation with continued weakness recommending ECF with case management and PT/OT therapy following. 10/21/2022 Patient is seen and evaluated in follow-up this morning lethargic although easily arousable. Patient being followed by infectious disease maintained on Diflucan his urine culture finalized showing [place] albicans. Cellulitis less likely of lower extremities and swelling is improving with Brent wraps noted. Patient having some increased anxiety with continued weakness. Recommend physical therapy daily. Case management following working on possibly ECF. Patient has poor social support and would likely benefit from rehab for continued strength and mobility. Patient is currently afebrile denies chest pain or shortness of breath. Patient reports to having some irritation with urination although feels somewhat improved. Patient's oral intake is fair and needs encouragement. Encouraged to increase activity as tolerated. Recommended replace electrolytes per protocol will follow-up with repeat labs. 10/22/2022 Patient seen and evaluated in follow-up this morning reporting she is nauseated and did have a small episode of emesis. Patient reports she has not had a bowel movement in 10 days and will obtain abdominal x-ray. Will continue with some stool softeners and also an enema and lactulose as x-ray did show evidence of stool burden with no obstruction or loops noted. Patient is afebrile denies chest pain or shortness of breath. Patient reports poor oral intake and needs encouragement. Potassium being replaced per protocol and will add supplementation for daily and recommend follow-up labs. Patient with significant weakness will be working on possibly ECF although will require insurance authorization and needed accepting facility at this time. Patient is maintained on Diflucan with infectious disease following his urine culture finalized showing [place] albicans otherwise negative and not concerned with lower extremity cellulitis most likely from volume overload with chronic stasis. Encouraged oral intake and increased activity as tolerated. Will adjust anti- nausea medications. 10/23/2022 Patient is seen this morning and was given an enema and started on lactulose as abdominal x-ray was displaying large stool burden patient reported she had not had a bowel movement in 10 days. Electrolytes being replaced and sodium is slightly low at 134 with a potassium of 3.3 and will replace. Have added oral supplementations daily, kidney functions are stable, magnesium continues to be low at 1.4. nursing staff patient has had multiple large bowel movements and patient does report she is feeling better. Patient continues with weakness and generalized fatigue. Recommend physical therapy daily. patient is afebrile and maintained on oral Diflucan. Patient was sinus tach and maintaining heart rates in the 110's and will add low dose metoprolol and change midodrine to prn for low blood pressures. Patient blood pressure was improved this am. Review of systems: Constitutional: reports of fatigue, no reports of fever, or chills, reports anxiety Cardiovascular: No reports of chest pain or palpitations Respiratory: No reports of shortness of breath or cough GI: reports of nausea, reports one episode of vomiting, reports having multiple large bowel movements : reports of mild dysuria and no reports of retention Neurovascular: reports of generalized weakness All medications have been reviewed PHYSICAL EXAMINATION: GENERAL: The patient is alert and oriented x4, Well developed, well nourished. Elderly-appearing female HEENT: Pupils are round and equally reacting to light. EOMI. no scleral icterus. No conjunctival pallor. Normocephalic, atraumatic. No pharyngeal erythema. No thyromegaly. CARDIOVASCULAR: S1 and S2 muffled PULMONARY: diminished breath sounds bilaterally with no wheezing or rhonchi noted. ABDOMEN: soft. Nontender on exam. non-distended, normoactive bowel sounds. No palpable organomegaly. MUSCULOSKELETAL: No joint swelling or deformity. EXTREMITIES: No cyanosis, clubbing, mild lower extremity edema with some improvement and Brent wraps noted NEUROLOGICAL: Gross neurological examination did not reveal any focal deficits. Diffuse weakness SKIN: No rashes. Assessment: Bilateral lower Extremity edema with concerns for possible cellulitis, suspicion is low most likely volume overload Possible acute urinary tract infection, present on admission, urine culture showing [place] albicans Leukocytosis secondary to above, improved constipation, resolved Mild protein calorie malnutrition with a BMI of 22.1 Hypokalemia, hypomagnesemia most likely due to poor oral intake GI prophylaxis DVT prophylaxis Full code Plan: Recommend to continue with current medications and management with infectious disease following. Lower extremity edema improving with Brent wraps and cellulitis ruled out per ID more like volume overload and edema Urine culture finalized showing [place] albicans and will continue Diflucan Patient is having bowel movements after lactulose and also give when necessary enema and will continue on stool softeners. May use lactulose as needed Potassium continues to be low and will replace per protocol and also provide oral daily supplementation Patient with a poor social support and continued weakness with PT/OT therapy following recommending ECF Case management following working on accepting facilities and insurance authorization Recommend to continue with Brent wraps to bilateral lower extremities and elevating while at rest Encouraged oral intake and increase activity as tolerated Recommend to monitor vital signs closely. Heart rate was sinus tach and have added low dose metoprolol Due to multiple complex medical issues, prognosis is guarded The impression and plan of care has been dictated by Luann Cortes, nurse practitioner as directed. Dr. Lorraine MD I have performed a history and examination and MDM of this patient, discussed the same with the dictator, and agree with the dictator's assessment and plan as written ,documented as a scribe. Based on total visit time, I have performed more than 50% of the visit. Any additional findings or plans will be noted. Objective - Vital Signs Vital signs: Vital Signs Temp 97.5 F L 10/23/22 07:17 Pulse 119 H 10/23/22 07:17 Resp 19 10/23/22 07:17 BP 123/85 10/23/22 07:17 Pulse Ox 96 10/23/22 07:17 FiO2 Intake & Output 10/22/22 10/23/22 10/23/22 18:59 06:59 18:59 Intake Total 200 540 Output Total 650 Balance -450 540 Intake: Oral 200 540 Output: Urine 650 Other: Voiding Method Diaper Diaper Incontinent Incontinent External Catheter External Catheter - Labs CBC & Chem 7: 10/20/22 04:50 10/23/22 14:23 Labs: Abnormal Lab Results - Last 24 Hours (Table) 10/22/22 10/23/22 Range/Units 05:48 07:04 Sodium 134 L (137-145) mmol/L Potassium 3.1 L 3.3 L (3.5-5.5) mmol/L Anion Gap 6.90 L (10.00-18.00) mmol/L BUN 6.7 L 4 L (9.0-27.0) mg/dL Creatinine 0.4 L 0.40 L (0.6-1.5) mg/dL Glucose 108 H (74-99) mg/dL Calcium 8.0 L (8.4-10.2) mg/dL Magnesium 1.4 L (1.6-2.3) mg/dL Microbiology - Last 24 Hours (Table) 10/17/22 22:15 Blood Culture - Preliminary Blood No Growth after 120 hours 10/17/22 22:30 Blood Culture - Preliminary Blood No Growth after 120 hours
[2022-10-23] MEDS: MAGNESIUM OXIDE 400 MG TAB PO SCH ×2 (17:48→22:01)
[2022-10-23] MEDS: ACETAMINOPHEN TAB 325 MG TAB PO PRN (17:56)
[2022-10-23] MEDS: POTASSIUM CHLORIDE 10 MEQ in WATER FOR INJECTION 1 100ML.BAG IVPB SCH ×2 (18:24→21:58)
[2022-10-23] MEDS: ALBUTEROL NEBULIZED 2.5 MG/3 ML INHALATION PRN (23:45)
[2022-10-24] MEDS: ALPRAZolam 0.25 MG TAB PO PRN
[2022-10-24] MEDS: HEPARIN SODIUM,PORCINE/PF 5,000 UNIT/0.5 ML SYRINGE SQ SCH ×3 (00:01→15:51)
[2022-10-24] MEDS: POTASSIUM CHLORIDE 10 MEQ in WATER FOR INJECTION 1 100ML.BAG IVPB SCH ×2 (00:52→02:07)
[2022-10-24 05:27] LABS: Magnesium 1.9 mg/dL (1.6-2.3); Potassium 4.3 mmol/L (3.5-5.1)
[2022-10-24] MEDS: IPRATROPIUM-ALBUTEROL 3 ML NEB INHALATION SCH ×3 (07:33→20:56)
[2022-10-24] MEDS: SYMBICORT 160-4.5 MCG INHALER INHALATION SCH ×2 (07:33→20:56)
[2022-10-24] MEDS: PANTOPRAZOLE 40 MG/10 ML VIAL IVP SCH ×2 (09:12→21:56)
[2022-10-24] MEDS: ATORVASTATIN 80 MG TAB PO SCH (09:12)
[2022-10-24] MEDS: MAGNESIUM OXIDE 400 MG TAB PO SCH ×3 (09:13→21:57)
[2022-10-24] MEDS: QUEtiapine 50 MG TAB PO SCH ×2 (09:13→21:57)
[2022-10-24] MEDS: METOPROLOL TARTRATE 12.5 MG TAB PO SCH ×2 (09:13→21:56)
[2022-10-24] MEDS: SENNOSIDES 8.6 MG TAB PO SCH ×2 (09:13→21:57)
[2022-10-24] MEDS: ASPIRIN 81 MG PO SCH (09:13)
[2022-10-24] MEDS: ONDANSETRON 4 MG TAB PO SCH (09:13)
[2022-10-24] MEDS: CLOPIDOGREL 75 MG TAB PO SCH (09:13)
[2022-10-24] MEDS: LORATADINE 10 MG TAB PO SCH (09:13)
[2022-10-24] MEDS: FLUCONAZOLE 100 MG TAB PO SCH (09:14)
[2022-10-24] MEDS: POTASSIUM CHLORIDE ER 20 MEQ TAB.ER PO SCH (09:16)
--- NOTE | 2022-10-24 14:56 | P.PN ---
Subjective Progress Note Date: 10/24/22 This is a 62-year-old female who is a patient of Dr. Staples was recently admitted with pain discharged one week prior and coming back for lower extremity swelling with concerns for possible cellulitis and also having some burning and pain with urination. Patient was initiated on antibiotics with infectious disease on consult. Cellulitis unlikely per ID and most likely due to volume overload recommending Brent wraps and elevation to lower extremities. Lower extremities improving with the Brent wraps and patient also continues to report some burning with urination. Urine cultures finalized showing yeast and is maintained on Diflucan. Patient was a poor social support and living situation with continued weakness recommending ECF with case management and PT/OT therapy following. 10/21/2022 Patient is seen and evaluated in follow-up this morning lethargic although easily arousable. Patient being followed by infectious disease maintained on Diflucan his urine culture finalized showing [place] albicans. Cellulitis less likely of lower extremities and swelling is improving with Brent wraps noted. Patient having some increased anxiety with continued weakness. Recommend physical therapy daily. Case management following working on possibly ECF. Patient has poor social support and would likely benefit from rehab for continued strength and mobility. Patient is currently afebrile denies chest pain or shortness of breath. Patient reports to having some irritation with urination although feels somewhat improved. Patient's oral intake is fair and needs encouragement. Encouraged to increase activity as tolerated. Recommended replace electrolytes per protocol will follow-up with repeat labs. 10/22/2022 Patient seen and evaluated in follow-up this morning reporting she is nauseated and did have a small episode of emesis. Patient reports she has not had a bowel movement in 10 days and will obtain abdominal x-ray. Will continue with some stool softeners and also an enema and lactulose as x-ray did show evidence of stool burden with no obstruction or loops noted. Patient is afebrile denies chest pain or shortness of breath. Patient reports poor oral intake and needs encouragement. Potassium being replaced per protocol and will add supplementation for daily and recommend follow-up labs. Patient with significant weakness will be working on possibly ECF although will require insurance authorization and needed accepting facility at this time. Patient is maintained on Diflucan with infectious disease following his urine culture finalized showing [place] albicans otherwise negative and not concerned with lower extremity cellulitis most likely from volume overload with chronic stasis. Encouraged oral intake and increased activity as tolerated. Will adjust anti- nausea medications. 10/23/2022 Patient is seen this morning and was given an enema and started on lactulose as abdominal x-ray was displaying large stool burden patient reported she had not had a bowel movement in 10 days. Electrolytes being replaced and sodium is slightly low at 134 with a potassium of 3.3 and will replace. Have added oral supplementations daily, kidney functions are stable, magnesium continues to be low at 1.4. nursing staff patient has had multiple large bowel movements and patient does report she is feeling better. Patient continues with weakness and generalized fatigue. Recommend physical therapy daily. patient is afebrile and maintained on oral Diflucan. Patient was sinus tach and maintaining heart rates in the 110's and will add low dose metoprolol and change midodrine to prn for low blood pressures. Patient blood pressure was improved this am. 10/24/2022 Patient is seen in follow-up today currently lying in bed asleep although arousable. Patient reports improvement in her and have no discomfort and has been having bowel movements. Patient can be incontinent at times with increased weakness making it difficult to get up and make it on time to the commode and/or bathroom. Patient continues to have Brent wraps to lower extremities and swelling has improved. Patient is continued on oral Diflucan for [place] albicans in the urine. Patient's repeat potassium this morning was 4.3 and magnesium is 1.9 will continue current daily supplementation. Encouraged oral intake and increased activity as tolerated. Patient with significant weakness would benefit from rehab and physical therapy has evaluated the patient recommending subacute rehab for continued strength and mobility. Given the observed holiday unable to verify insurance authorization and currently awaiting on accepting ECF and insurance approval. Will follow up with case management/social work in the a.m. about discharge planning. Patient is currently afebrile denies chest pain or shortness of breath. Patient denies nausea or vomiting today and tolerating diet. Patient does need encouragement with oral intake. Review of systems: Constitutional: reports of fatigue, no reports of fever, or chills, reports anxiety Cardiovascular: No reports of chest pain or palpitations Respiratory: No reports of shortness of breath or cough GI: No reports of nausea, no reports of vomiting, reports having had multiple large bowel movements and improvement in abdominal pain : reports of mild dysuria and no reports of retention Neurovascular: reports of generalized weakness All medications have been reviewed PHYSICAL EXAMINATION: GENERAL: The patient is alert and oriented x4, Well developed, well nourished. Elderly-appearing female HEENT: Pupils are round and equally reacting to light. EOMI. no scleral icterus. No conjunctival pallor. Normocephalic, atraumatic. No pharyngeal erythema. No thyromegaly. CARDIOVASCULAR: S1 and S2 muffled PULMONARY: diminished breath sounds bilaterally with no wheezing or rhonchi noted. ABDOMEN: soft. Nontender on exam. non-distended, normoactive bowel sounds. No palpable organomegaly. MUSCULOSKELETAL: No joint swelling or deformity. EXTREMITIES: No cyanosis, clubbing, mild lower extremity edema with some improvement and Brent wraps noted NEUROLOGICAL: Gross neurological examination did not reveal any focal deficits. Diffuse weakness SKIN: No rashes. Assessment: Bilateral lower Extremity edema with concerns for possible cellulitis, suspicion is low most likely volume overload Possible acute urinary tract infection, present on admission, urine culture showing [place] albicans Leukocytosis secondary to above, improved constipation, resolved Mild protein calorie malnutrition with a BMI of 22.1 Hypokalemia, hypomagnesemia most likely due to poor oral intake GI prophylaxis DVT prophylaxis Full code Plan: Recommend to continue with current medications and management with infectious disease following. Lower extremity edema improving with Brent wraps and cellulitis ruled out per ID more like volume overload and edema Urine culture finalized showing [place] albicans and will continue Diflucan Patient is having bowel movements after lactulose and also give when necessary enema and will continue on stool softeners. May use lactulose as needed Potassium improved after protocol replacement and have started patient on daily supplementation and will continue Patient with a poor social support and continued weakness with PT/OT therapy following recommending ECF Case management following working on accepting facilities and insurance authorization, insurances are closed given the observed holiday and will follow up with case management in the a.m. Recommend to continue with Brent wraps to bilateral lower extremities and elevating while at rest Encouraged oral intake and increase activity as tolerated Patient's blood pressures on the lower side and may use midodrine 5 mg 3 times a day when necessary for systolic blood pressure 90 or less Due to multiple complex medical issues, prognosis is guarded Patient is medically stable and ready for discharge in the next 24-48 hours if ECF is accepting and insurance authorization is obtained The impression and plan of care has been dictated by Luann Cortes, nurse practitioner as directed. Dr. Timothy MD I have performed a history and examination and MDM of this patient, discussed the same with the dictator, and agree with the dictator's assessment and plan as written ,documented as a scribe. Based on total visit time, I have performed more than 50% of the visit. Any additional findings or plans will be noted. Objective - Vital Signs Vital signs: Vital Signs Temp 98.3 F 10/24/22 12:50 Pulse 98 10/24/22 12:50 Resp 18 10/24/22 12:50 BP 98/62 10/24/22 12:50 Pulse Ox 98 10/24/22 12:50 FiO2 Intake & Output 10/23/22 10/24/22 10/24/22 18:59 06:59 18:59 Intake Total 240 240 Balance 240 240 Intake: Oral 240 240 Other: Voiding Method Bedside Commode Bedside Commode Bedside Commode Diaper Diaper Diaper Incontinent Incontinent Incontinent # Voids 4 1 1 # Bowel Movements 2 - Labs CBC & Chem 7: 10/20/22 04:50 10/24/22 04:56 Labs: Abnormal Lab Results - Last 24 Hours (Table) 10/23/22 Range/Units 14:23 Potassium 3.3 L (3.5-5.1) mmol/L Microbiology - Last 24 Hours (Table) 10/17/22 22:15 Blood Culture - Final Blood No Growth after 144 hours 10/17/22 22:30 Blood Culture - Final Blood No Growth after 144 hours
--- NOTE | 2022-10-24 15:07 | P.PN ---
Subjective Progress Note Date: 10/24/22 Principal diagnosis: Leukocytosis/UTI Patient is a 62-year-old female presenting to the hospital with multiple symptoms including left lower extremity swelling and some blisters and pain also have urinary symptoms of burning and frequency patient did have elevated white count initially treated for cellulitis. On today's evaluation that is 10/24/2022, the patient remains to be afebrile, the patient is breathing comfortably on room air, the patient denies chest pain shortness of breath , the patient cough is decreased intensity, no sputum production, no nausea no vomiting no abdominal pain no diarrhea Objective - Vital Signs Vital signs: Vital Signs Temp 98.3 F 10/24/22 12:50 Pulse 98 10/24/22 12:50 Resp 18 10/24/22 12:50 BP 98/62 10/24/22 12:50 Pulse Ox 98 10/24/22 12:50 FiO2 Intake & Output 10/23/22 10/24/22 10/24/22 18:59 06:59 18:59 Intake Total 240 240 Balance 240 240 Intake: Oral 240 240 Other: Voiding Method Bedside Commode Bedside Commode Bedside Commode Diaper Diaper Diaper Incontinent Incontinent Incontinent # Voids 4 1 1 # Bowel Movements 2 - Exam GENERAL DESCRIPTION: Middle-aged female lying in bed in no distress RESPIRATORY SYSTEM: Unlabored breathing , decreased breath sounds at bases HEART: S1 S2 regular rate and rhythm , ABDOMEN: Soft , no tenderness EXTREMITIES: Bilateral lower extremity are currently wrapped in Brent wrap - Labs CBC & Chem 7: 10/20/22 04:50 10/24/22 04:56 Labs: Abnormal Lab Results - Last 24 Hours (Table) 10/23/22 Range/Units 14:23 Potassium 3.3 L (3.5-5.1) mmol/L Microbiology - Last 24 Hours (Table) 10/17/22 22:15 Blood Culture - Final Blood No Growth after 144 hours 10/17/22 22:30 Blood Culture - Final Blood No Growth after 144 hours Assessment and Plan (1) Leukocytosis Current Visit: Yes Status: Acute Code(s): D72.829 - ELEVATED WHITE BLOOD CELL COUNT, UNSPECIFIED SNOMED Code(s): 869371611 Plan: 1patient with the left lower extremity swelling and some blister formation likely fluid overload currently no significant redness or any purulence clinic suspicious remains to be low for cellulitis. 2patient did have a positive UA with a urinary symptoms suggestive of symptomatic UTI with urine culture grew [place]. 3lower extremity Doppler was negative for DVT continue with Brent wrap 4patient has shown to have shown clinical improvement and the patient white count is normal as of 10/20/2022 5-patient is currently being treated with the Diflucan and monitor clinical course closely Time with Patient: Less than 30
[2022-10-24] MEDS: ONDANSETRON 4 MG/2 ML VIAL IVP PRN (19:06)
[2022-10-24] MEDS: HYDROcodone/APAP 5-325MG 1 EACH TAB PO PRN ×2 (22:08)
[2022-10-25] MEDS: HEPARIN SODIUM,PORCINE/PF 5,000 UNIT/0.5 ML SYRINGE SQ SCH ×4 (00:03→23:53)
[2022-10-25] MEDS: SYMBICORT 160-4.5 MCG INHALER INHALATION SCH ×2 (07:50→19:52)
[2022-10-25] MEDS: IPRATROPIUM-ALBUTEROL 3 ML NEB INHALATION SCH ×3 (07:50→19:52)
[2022-10-25] MEDS: FLUCONAZOLE 100 MG TAB PO SCH (09:07)
[2022-10-25] MEDS: HYDROcodone/APAP 5-325MG 1 EACH TAB PO PRN (09:08)
[2022-10-25] MEDS: QUEtiapine 50 MG TAB PO SCH ×2 (09:08→21:32)
[2022-10-25] MEDS: ONDANSETRON 4 MG TAB PO SCH (09:08)
[2022-10-25] MEDS: LORATADINE 10 MG TAB PO SCH (09:08)
[2022-10-25] MEDS: METOPROLOL TARTRATE 12.5 MG TAB PO SCH ×2 (09:08→21:32)
[2022-10-25] MEDS: ASPIRIN 81 MG PO SCH (09:08)
[2022-10-25] MEDS: SENNOSIDES 8.6 MG TAB PO SCH ×2 (09:08→21:32)
[2022-10-25] MEDS: ATORVASTATIN 80 MG TAB PO SCH (09:08)
[2022-10-25] MEDS: MAGNESIUM OXIDE 400 MG TAB PO SCH ×3 (09:08→21:32)
[2022-10-25] MEDS: CLOPIDOGREL 75 MG TAB PO SCH (09:08)
[2022-10-25] MEDS: POTASSIUM CHLORIDE ER 20 MEQ TAB.ER PO SCH ×3 (09:09→09:21)
[2022-10-25] MEDS: PANTOPRAZOLE 40 MG/10 ML VIAL IVP SCH ×2 (09:09→21:32)
--- NOTE | 2022-10-25 22:03 | PN ---
PROGRESS NOTE CHIEF COMPLAINT: Edema and cellulitis of the left leg with anemia and leukocytosis. HISTORY OF PRESENT ILLNESS: This lady is just about the same. Potassium has come up into a normal range. She has had no fever or chills. PHYSICAL EXAMINATION: CHEST: Clear. CARDIAC: Normal. ABDOMEN: Soft, nontender. LEGS: Left leg is slightly less edematous. IMPRESSION: 1. Cellulitis and edema of the left leg. 2. Leukocytosis. 3. Chronic anemia. 4. Malnutrition. PLAN: Try to progress her activity and increase drinks. She has no place to go after she leaves the hospital. MMODL / IJN: [id number] /
[2022-10-26] MEDS: ONDANSETRON 4 MG/2 ML VIAL IVP PRN (06:06)
[2022-10-26] MEDS: SYMBICORT 160-4.5 MCG INHALER INHALATION SCH ×2 (07:48→19:49)
[2022-10-26] MEDS: IPRATROPIUM-ALBUTEROL 3 ML NEB INHALATION SCH ×3 (07:48→19:48)
[2022-10-26] MEDS: ALPRAZolam 0.25 MG TAB PO PRN (08:24)
[2022-10-26] MEDS: PANTOPRAZOLE 40 MG/10 ML VIAL IVP SCH ×2 (08:24→20:34)
[2022-10-26] MEDS: METOPROLOL TARTRATE 12.5 MG TAB PO SCH ×2 (08:24→20:34)
[2022-10-26] MEDS: SENNOSIDES 8.6 MG TAB PO SCH ×2 (08:24→20:34)
[2022-10-26] MEDS: ONDANSETRON 4 MG TAB PO SCH (08:24)
[2022-10-26] MEDS: MAGNESIUM OXIDE 400 MG TAB PO SCH ×3 (08:24→20:34)
[2022-10-26] MEDS: ASPIRIN 81 MG PO SCH (08:24)
[2022-10-26] MEDS: POTASSIUM CHLORIDE ER 20 MEQ TAB.ER PO SCH (08:24)
[2022-10-26] MEDS: QUEtiapine 50 MG TAB PO SCH ×2 (08:24→20:34)
[2022-10-26] MEDS: CLOPIDOGREL 75 MG TAB PO SCH (08:24)
[2022-10-26] MEDS: HEPARIN SODIUM,PORCINE/PF 5,000 UNIT/0.5 ML SYRINGE SQ SCH ×3 (08:24→23:19)
[2022-10-26] MEDS: LORATADINE 10 MG TAB PO SCH (08:25)
[2022-10-26] MEDS: FLUCONAZOLE 100 MG TAB PO SCH (08:25)
[2022-10-26] MEDS: ATORVASTATIN 80 MG TAB PO SCH (08:25)
[2022-10-26] MEDS: HYDROcodone/APAP 5-325MG 1 EACH TAB PO PRN (17:39)
--- NOTE | 2022-10-26 22:15 | PN ---
PROGRESS NOTE CHIEF COMPLAINT: Cellulitis and edema in the left leg, urinary tract infection, and failure to thrive. HISTORY OF PRESENT ILLNESS: This lady continues to do poorly. She is not eating. She is not febrile. She is being followed by Infectious Disease. Her potassium has been a problem on and off, but on last evaluation, it was at 4.3. Kidney function is normal. White count is down to 9500, which is down significantly. Hemoglobin is 9. Platelet count is normal. Other laboratory studies are normal. PHYSICAL EXAMINATION: GENERAL: She remains pale and chronically ill. CHEST: Clear. CARDIAC: Normal. SKIN: She has several ecchymoses and superficial skin abrasions where she fell when she went home and then promptly returned. ABDOMEN: Soft and nontender. IMPRESSION: 1. General debility and failure to thrive. 2. Leukocytosis. 3. Anemia. 4. Edema and cellulitis of the left lower extremity. 5. Urinary tract infection. PLAN: She continues to slowly improve in terms of her numbers, but she will not be a candidate to return home. MMODL / IJN: [id number] /
--- NOTE | 2022-10-27 08:15 | P.PN ---
Subjective Progress Note Date: 10/25/22 Principal diagnosis: Leukocytosis/UTI Patient is a 62-year-old female presenting to the hospital with multiple symptoms including left lower extremity swelling and some blisters and pain also have urinary symptoms of burning and frequency patient did have elevated white count initially treated for cellulitis. On today's evaluation that is 10/25/2022, the patient continues to be afebrile, the patient is breathing comfortably on room air, the patient denies chest pain shortness of breath , the patient cough has decreased intensity and remains to be dry in nature, no nausea no vomiting no abdominal pain no diarrhea Objective - Vital Signs Vital signs: Vital Signs Temp 97.7 F 10/25/22 07:40 Pulse 104 H 10/25/22 08:03 Resp 16 10/25/22 07:40 BP 101/68 10/25/22 07:40 Pulse Ox 100 10/25/22 07:40 FiO2 Intake & Output 10/24/22 10/25/22 10/25/22 18:59 06:59 18:59 Intake Total 840 Balance 840 Intake: Oral 840 Other: Voiding Method Bedside Commode Bedside Commode Diaper Diaper Incontinent Incontinent # Voids 1 2 1 - Exam GENERAL DESCRIPTION: Middle-aged female lying in bed in no distress RESPIRATORY SYSTEM: Unlabored breathing , decreased breath sounds at bases HEART: S1 S2 regular rate and rhythm , ABDOMEN: Soft , no tenderness EXTREMITIES: Bilateral lower extremity are currently wrapped in Brent wrap - Labs CBC & Chem 7: 10/20/22 04:50 10/24/22 04:56 Assessment and Plan (1) Leukocytosis Current Visit: Yes Status: Acute Code(s): D72.829 - ELEVATED WHITE BLOOD CELL COUNT, UNSPECIFIED SNOMED Code(s): 036038318 Plan: 1patient with the left lower extremity swelling and some blister formation likely fluid overload currently no significant redness or any purulence clinic suspicious remains to be low for cellulitis. 2patient did have a positive UA with a urinary symptoms suggestive of symptomatic UTI with urine culture grew [place]. 3lower extremity Doppler was negative for DVT continue with Brent wrap 4patient has shown to have shown clinical improvement and the patient white count is normal as of 10/20/2022 5-patient to continue with the Diflucan and continues with supportive care Time with Patient: Less than 30
--- NOTE | 2022-10-27 08:16 | P.PN ---
Subjective Progress Note Date: 10/26/22 Principal diagnosis: Leukocytosis/UTI Patient is a 62-year-old female presenting to the hospital with multiple symptoms including left lower extremity swelling and some blisters and pain also have urinary symptoms of burning and frequency patient did have elevated white count initially treated for cellulitis. On today's evaluation that is 10/26/2022, the patient remains to be afebrile, the patient is breathing comfortably on room air, the patient denies chest pain shortness of breath , the patient did have mild dry cough denies any nausea vomiting or diarrhea Objective - Vital Signs Vital signs: Vital Signs Temp 97.7 F 10/26/22 12:37 Pulse 88 10/26/22 12:37 Resp 16 10/26/22 12:37 BP 113/77 10/26/22 12:37 Pulse Ox 94 L 10/26/22 12:37 FiO2 Intake & Output 10/25/22 10/26/22 10/26/22 18:59 06:59 18:59 Intake Total 600 Balance 600 Weight 51.256 kg Intake: Oral 600 Other: Voiding Method Bedside Commode Bedside Commode Toilet Diaper Diaper Diaper Incontinent Incontinent Incontinent # Voids 1 1 - Exam GENERAL DESCRIPTION: Middle-aged female lying in bed in no distress RESPIRATORY SYSTEM: Unlabored breathing , decreased breath sounds at bases HEART: S1 S2 regular rate and rhythm , ABDOMEN: Soft , no tenderness EXTREMITIES: Bilateral lower extremity are currently wrapped in Brent wrap - Labs CBC & Chem 7: 10/20/22 04:50 10/24/22 04:56 Assessment and Plan (1) Leukocytosis Current Visit: Yes Status: Acute Code(s): D72.829 - ELEVATED WHITE BLOOD CELL COUNT, UNSPECIFIED SNOMED Code(s): 592841383 Plan: 1patient with the left lower extremity swelling and some blister formation likely fluid overload currently no significant redness or any purulence clinic suspicious remains to be low for cellulitis. 2patient did have a positive UA with a urinary symptoms suggestive of symptomatic UTI with urine culture grew [place]. 3lower extremity Doppler was negative for DVT continue with Brent wrap 4patient has shown to have shown clinical improvement and the patient white count is normal as of 10/20/2022 continue with the Diflucan and monitor clinical course closely Time with Patient: Less than 30
[2022-10-27] MEDS: SYMBICORT 160-4.5 MCG INHALER INHALATION SCH (08:37)
[2022-10-27] MEDS: IPRATROPIUM-ALBUTEROL 3 ML NEB INHALATION SCH ×2 (08:37→12:05)
[2022-10-27] MEDS: HEPARIN SODIUM,PORCINE/PF 5,000 UNIT/0.5 ML SYRINGE SQ SCH ×2 (09:22→17:33)
[2022-10-27] MEDS: CLOPIDOGREL 75 MG TAB PO SCH (09:23)
[2022-10-27] MEDS: LORATADINE 10 MG TAB PO SCH (09:23)
[2022-10-27] MEDS: POTASSIUM CHLORIDE ER 20 MEQ TAB.ER PO SCH (09:23)
[2022-10-27] MEDS: SENNOSIDES 8.6 MG TAB PO SCH (09:23)
[2022-10-27] MEDS: FLUCONAZOLE 100 MG TAB PO SCH (09:23)
[2022-10-27] MEDS: ONDANSETRON 4 MG TAB PO SCH (09:23)
[2022-10-27] MEDS: ATORVASTATIN 80 MG TAB PO SCH (09:23)
[2022-10-27] MEDS: MAGNESIUM OXIDE 400 MG TAB PO SCH ×2 (09:23→16:52)
[2022-10-27] MEDS: QUEtiapine 50 MG TAB PO SCH (09:23)
[2022-10-27] MEDS: ASPIRIN 81 MG PO SCH (09:23)
[2022-10-27] MEDS: METOPROLOL TARTRATE 12.5 MG TAB PO SCH (09:23)
[2022-10-27] MEDS: PANTOPRAZOLE 40 MG/10 ML VIAL IVP SCH (09:24)
[2022-10-27 12:37] VITALS: BP 127/78; PULSE 114; RESP 18; TEMP 98
--- NOTE | 2022-10-27 14:06 | P.PN ---
Subjective Progress Note Date: 10/27/22 Principal diagnosis: Leukocytosis/UTI Patient is a 62-year-old female presenting to the hospital with multiple symptoms including left lower extremity swelling and some blisters and pain also have urinary symptoms of burning and frequency patient did have elevated white count initially treated for cellulitis. On today's evaluation that is 10/27/2022, the patient continues to be afebrile, the patient is breathing comfortably on room air, the patient denies chest pain shortness of breath did have occasional dry cough denies any nausea vomiting no abdominal pain no diarrhea Objective - Vital Signs Vital signs: Vital Signs Temp 98 F 10/27/22 12:36 Pulse 114 H 10/27/22 12:36 Resp 18 10/27/22 12:36 BP 127/78 10/27/22 12:36 Pulse Ox 94 L 10/27/22 12:36 FiO2 Intake & Output 10/26/22 10/27/22 10/27/22 18:59 06:59 18:59 Output Total 1 Balance -1 Output: Urine 1 Other: Voiding Method Toilet Toilet Toilet Diaper Diaper Diaper Incontinent Incontinent Incontinent # Voids 1 3 - Exam GENERAL DESCRIPTION: Middle-aged female lying in bed in no distress RESPIRATORY SYSTEM: Unlabored breathing , decreased breath sounds at bases HEART: S1 S2 regular rate and rhythm , ABDOMEN: Soft , no tenderness EXTREMITIES: Bilateral lower extremity are currently wrapped in Brent wrap - Labs CBC & Chem 7: 10/20/22 04:50 10/24/22 04:56 Assessment and Plan (1) Leukocytosis Current Visit: Yes Status: Acute Code(s): D72.829 - ELEVATED WHITE BLOOD CELL COUNT, UNSPECIFIED SNOMED Code(s): 014436658 Plan: 1patient with the left lower extremity swelling and some blister formation likely fluid overload currently no significant redness or any purulence clinic suspicious remains to be low for cellulitis. 2patient did have a positive UA with a urinary symptoms suggestive of symptomatic UTI with urine culture grew [place]. 3lower extremity Doppler was negative for DVT continue with Brent wrap 4patient has shown to have shown clinical improvement and the patient white count has normalized has received adequate Diflucan for a UTI and can be discontinued on discharge Time with Patient: Less than 30
--- NOTE | 2022-10-27 14:22 | DS ---
DISCHARGE SUMMARY CHIEF COMPLAINT: General debility, frequent falling, weakness, and recent left-sided CVA with right hemiparesis. HISTORY OF PRESENT ILLNESS AND PHYSICAL EXAMINATION: Details of this lady's history and physical can be found in the initial workup. LABORATORY STUDIES: While she is in the hospital, she had laboratory studies, details of which can be found in the laboratory section of her chart. COURSE IN THE HOSPITAL: After her re-admission, she was placed on bedrest and started back on her usual medications. She had no new signs or symptoms. Her potassium remained slightly low, but this was corrected. Her magnesium was also low, and this was treated. She continued to deteriorate and fail physiologically and finally agreed to go to a [facility]. Arrangements were made for her to go there on the . She will be maintained on most of her medications, but her going to the [facility] where [facility] is important and because of her excess lethargy and lack of mobility, she was taken off some of these medications including her tranquilizer and pain medications. FINAL DIAGNOSES: 1. General debility and failure to thrive. 2. Generalized weakness. 3. Frequent falling. 4. Recent left-sided cerebrovascular accident with right hemiparesis. 5. Hypokalemia. 6. Hypomagnesemia. 7. Edema of the left lower extremity with stasis dermatitis and vesicles. 8. Cellulitis of the left leg. 9. Urinary tract infection. OPERATIONS: None. CONSULTATIONS: Infectious Disease. CONDITION: She is improved. CHRISTIANO / ANT: [id number] /
== END 2022-10-27 17:39 | DRG 603 ==
LOC: EC 17:10 → 6NMEDSUR 22:51 → 5NMEDONC 10-21 20:41
PROVIDERS: ADMIT Family Medicine; ATTEND Family Medicine
DX: L03.116 Cellulitis of left lower limb (principal); E44.1 Mild protein-calorie malnutrition; E87.1 Hypo-osmolality and hyponatremia; I69.351 Hemiplegia and hemiparesis following cerebral infarction affecting right dominant side; B37.49 Other urogenital candidiasis; K59.00 Constipation, unspecified; R29.6 Repeated falls; R62.7 Adult failure to thrive; J44.9 Chronic obstructive pulmonary disease, unspecified; I87.2 Venous insufficiency (chronic) (peripheral); D64.9 Anemia, unspecified; M19.90 Unspecified osteoarthritis, unspecified site; Z68.22 Body mass index [BMI] 22.0-22.9, adult; E83.42 Hypomagnesemia; E87.6 Hypokalemia; E87.70 Fluid overload, unspecified; Z66 Do not resuscitate; F41.9 Anxiety disorder, unspecified; Z79.02 Long term (current) use of antithrombotics/antiplatelets; Z79.51 Long term (current) use of inhaled steroids; Z79.82 Long term (current) use of aspirin; Z79.899 Other long term (current) drug therapy; Z82.49 Family history of ischemic heart disease and other diseases of the circulatory system; Z87.891 Personal history of nicotine dependence; Z96.652 Presence of left artificial knee joint
CPT/HCPCS: 36415; 70450; 71046; 72125; 74022; 80048; 80053; 81001; 83605; 83735; 84132; 85025; 85610; 86140; 87040; 87086; 87636; 93005; 94640; 94760; 96361; 96365; 96366; 99285

== ENCOUNTER 2022-10-29 05:57 | Inpatient (IN) | payer OTHER ==
[2022-10-29 06:11] LABS: Glucose,Whole Blood 74 mg/dL (70-110)
[2022-10-29] MEDS: NOREPINEPHRINE 4 MG in SODIUM CHLORIDE 0.9% 250 ML IV ONE ×2 (06:29→13:53)
[2022-10-29] MEDS ORDERED: SUCCINYLCHOLINE CHLORIDE 200 MG/10 ML VIAL IV STA (06:38)
[2022-10-29] MEDS ORDERED: ETOMIDATE 2 MG/ML 10 ML VIAL IVP STA (06:38)
[2022-10-29 06:49] LABS: Anisocytosis Slight; Basophils # (A) 0.2 k/uL (0-0.2); Basophils % (A) 1 %; Eosinophils # (A) 0.1 k/uL (0-0.7); Eosinophils % (A) 0 %; HCT 25.7 % (34.0-46.0); Hypochromasia Marked; Lymphocytes # (A) 2.1 k/uL (1.0-4.8); Lymphocytes % (A) 7 %; MCH 29.5 pg (25.0-35.0); MCHC 27.4 g/dL (31.0-37.0); Macrocytosis Marked; Mean Platelet Volume 9.3; Monocytes # (A) 1.4 k/uL (0-1.0); Monocytes % (A) 4 %; Neutrophils # (A) 27.1 k/uL (1.3-7.7); Neutrophils % (A) 87 %; Platelet Count 354 k/uL (150-450); RBC 2.39 m/uL (3.80-5.40); RDW 17.4 % (11.5-15.5); WBC 31.4 k/uL (3.8-10.6)
[2022-10-29 06:54] LABS: HGB 7.1 gm/dL (11.4-16.0)
--- NOTE | 2022-10-29 06:54 | XR ---
EXAMINATION TYPE: XR chest 1V portable DATE OF EXAM: 10/29/2022 COMPARISON: Chest x-ray October 17, 2022 HISTORY: Cardiac arrest. TECHNIQUE: Single portable frontal supine view of the chest is obtained. FINDINGS: There is new endotracheal tube terminating at aortic knob level just above doyle advise p ulling back 3 to 4 cm to be in more ideal position. There is new orogastric tube projecting below geraldine phragm. There is new right internal jugular central venous catheter terminating in right atrium. Mild chronic parenchymal changes are present without suspicious focal airspace opacity, pleural effus ion, or pneumothorax seen bilaterally. Cardiac silhouette size stable and within normal limits. Donnelly us structures are intact. Cholecystectomy clips are redemonstrated. IMPRESSION: 1. Low lying endotracheal tube just above doyle, advise pulling back 3 to 4 cm to be in more ideal p osition. Satisfactory positioned orogastric tube. 2. No acute pulmonary process.
[2022-10-29 06:55] LABS: MCV 107.6 fL (80.0-100.0)
[2022-10-29 06:57] LABS: INR 1.8 (<1.2); Prothrombin Time 17.8 sec (9.0-12.0)
[2022-10-29 07:03] LABS: Albumin 1.3 g/dL (3.5-5.0); Calcium 6.9 mg/dL (8.4-10.2); Potassium 5.6 mmol/L (3.5-5.1); Total Bilirubin 1.4 mg/dL (0.2-1.3); Total Protein 3.2 g/dL (6.3-8.2)
[2022-10-29] MEDS ORDERED: CEFEPIME 1 GM in SODIUM CHLORIDE 0.9% 50 ML IVPB STA (07:05)
[2022-10-29 07:13] LABS: Appearance,Urine Cloudy (Clear); Bacteria,Urine Rare /hpf; Bilirubin,Urine Negative (Negative); Blood,Urine Negative (Negative); Color,Urine Yellow; Glucose,Urine (UA) Negative (Negative); Hyaline Casts,Urine 42 /lpf (0-2); Ketones,Urine Negative (Negative); Leukocyte Esterase,Urine Large (Negative); Mucus,Urine Many /hpf; Nitrite,Urine Negative (Negative); Protein,Urine 1+ (Negative); RBC,Urine 3 /hpf (0-5); Specific Gravity,Urine 1.016 (1.001-1.035); Squamous Epithelial Cell,Urine 15 /hpf (0-4); Urobilinogen,Urine <2.0 mg/dL (<2.0); WBC,Urine 10 /hpf (0-5)
--- NOTE | 2022-10-29 07:14 | ED ---
General Adult HPI - General Chief complaint: Cardiac Arrest/CPR Stated complaint: Cardiac Arrest Time Seen by Provider: 10/29/22 06:41 Source: EMS Mode of arrival: EMS - History of Present Illness Initial comments: This is a 61-year-old female who presented to the emergency department via EMS in cardiac arrest. It was reported by EMS that they received a call from [facility] for a patient that had decreased vital signs. When they arrived, the patient was agonal breathing and lost pulses. The nurses did not have any information on the patient had no history on the patient. EMS was there to begin CPR and did obtain pulses back and route however when they arrive d here lost pulses once again. The patient received 4 epinephrines and no shocks. The patient was having active CPR on arrival. No further history was obtained at this time. The patient was "full code per the shelter because she does not have any paperwork and it default still full code." - Related Data Home Medications Medication Instructions Recorded Confirmed Budesonide-Formot 160-4.5 Mcg 1 puff INHALATION RT-BID 10/03/22 10/17/22 [Symbicort 160-4.5 Mcg Inhaler] Ketotifen 0.025% Ophth Soln 1 drop BOTH EYES BID 10/03/22 10/17/22 [Zaditor] Metoclopramide [Reglan] 10 mg PO TID PRN 10/03/22 10/17/22 Omeprazole [PriLOSEC] 20 mg PO BID 10/03/22 10/17/22 QUEtiapine FUMARATE [QUEtiapine 300 mg PO HS 10/03/22 10/17/22 FUMARATE ER] Sucralfate [Carafate] 1 gm PO QID 10/03/22 10/17/22 rOPINIRole HCL 0.25 mg PO HS 10/03/22 10/17/22 Previous Rx's Medication Instructions Recorded Aspirin 81 mg PO DAILY #100 tab 10/13/22 Clopidogrel [Plavix] 75 mg PO DAILY #30 tab 10/13/22 Fluconazole [Diflucan] 100 mg PO DAILY #10 tab 10/27/22 Ipratropium-Albuterol Nebulize 3 ml INHALATION RT-TID #90 each 10/27/22 [Duoneb 0.5 mg-3 mg/3 ml Soln] Magnesium Oxide [Mag-Ox] 400 mg PO TID #90 tab 10/27/22 Midodrine [ProAmatine] 5 mg PO AC-BID PRN #60 tab 10/27/22 Potassium Chloride ER [K-Dur 20] 40 meq PO DAILY #60 tab 10/27/22 Allergies Allergy/AdvReac Type Severity Reaction Status Date / Time No Known Allergies Allergy Verified 10/17/22 18:33 Review of Systems ROS Statement: Those systems with pertinent positive or pertinent negative responses have been documented in the HPI. ROS Other: All systems not noted in ROS Statement are negative. Limitations: ROS unobtainable due to patients medical condition Past Medical History Past Medical History: COPD, Osteoarthritis (OA) History of Any Multi-Drug Resistant Organisms: None Reported Past Surgical History: Cholecystectomy, Hysterectomy, Joint Replacement, Tonsillectomy Additional Past Surgical History / Comment(s): left knee Past Anesthesia/Blood Transfusion Reactions: No Reported Reaction Past Psychological History: No Psychological Hx Reported Smoking Status: Former smoker Past Alcohol Use History: None Reported Past Drug Use History: None Reported - Past Family History Mother History Unknown: Yes Father Family Medical History: Congestive Heart Failure (CHF), Hypertension General Exam Limitations: altered mental status (Patient actively undergoing CPR, patient apneic and unresponsive) Head exam: Present: atraumatic, normocephalic Eye exam: Present: normal appearance, other (Pupils 3mm and unreactive) ENT exam: Present: normal exam, normal oropharynx, other (Michael tube in place) Neck exam: Present: normal inspection, full ROM Respiratory exam: Present: other (Patient, actively undergoing CPR) Cardiovascular Exam: Present: other (Patient actively undergoing CPR, patient apneic and unresponsive) GI/Abdominal exam: Present: soft Extremities exam: Present: other (Multiple contusions noted over the upper or lower extremity is) Back exam: Present: normal inspection, full ROM Neurological exam: Present: altered (Patient actively undergoing CPR, patient apneic and unresponsive) Psychiatric exam: Present: other (Patient actively undergoing CPR, patient apneic and unresponsive) Skin exam: Present: warm, dry Course Vital Signs 10/29/22 10/29/22 05:57 07:15 Temperature 97.8 F Pulse Rate 88 Respiratory 8 L Rate Blood Pressure 112/76 O2 Sat by Pulse 98 Oximetry Fraction of 100 Inspired Oxygen (FIO2) EKG Findings - EKG Comments: EKG Findings:: An EKG was obtained and was interpreted by myself. EKG showed a rate of 89, WI interval 187, QR sikh 161 and QTC of 492. This EKG showed a normal sinus rhythm however there was a right bundle branch block and significant artifact secondary to patient movement. There was no ST segment elevation or depression noted however. Procedures - Central Line Placement Right IJ Consent Obtained: emergent situation Patient Placed on Monitor/Pulse Ox: Yes MD Prep: mask, gown, gloves Central Line Prep: Chlorhexidine scrub, sterile drapes applied Ultrasound Used for Placement: Yes Central Line Lumen Inserted: triple Bloods Obtained for Lab: Yes Central Line Position: good blood return, all ports aspirated, flushed, capped, sutured in place with 3-0 nylon Dressing Applied: Tegaderm, sterile gauze/tape Post Procedure X-Ray: tip of catheter in good position Patient Tolerated Procedure: well Complications: none - Intubation Sedative: Etomidate Mg Given: 20 Paralytic: Succinylcholine Mg Given: 80 Laryngoscope: Graciela Size: 4 ET Tube Size: 7.5 ET Tube Uncuffed: Yes Tube Secured Depth (cm): 25 Tube Secured Location: lips Tube Placement Confirmation: visualized tube passing through cords, equal breath sounds bilaterally, confirmation by capnometry Patient Tolerated Procedure: well Intubation Complications: none Medical Decision Making - Medical Decision Making Was pt. sent in by a medical professional or institution ([facility], [employer], urgent care, hospital, or shelter...) When possible be specific @ -Yes, nursing facility Did you speak to anyone other than the patient for history (EMS, parent, family, police, friend...)? What history was obtained from this source @ -Yes, EMS Did you review nursing and triage notes (agree or disagree)? Why? @ -I reviewed and agree with nursing and triage notes Were old charts reviewed (outside hosp., previous admission, EMS record, old EKG, old radiological studies, urgent care reports/EKG's, shelter records)? Report findings @ -No old charts were reviewed Differential Diagnosis (chest pain, altered mental status, abdominal pain women, abdominal pain men, vaginal bleeding, weakness, fever, dyspnea, syncope, headache, dizziness, GI bleed, back pain, seizure, CVA, palpatations, mental health)? @ -Intracranial hemorrhage, CVA, ACS, sepsis, septic shock EKG interpreted by me (3pts min.). @ -As above X-rays interpreted by me (1pt min.). @ -Chest x-ray was obtained and was interpreted by myself. Chest x-ray showed ET tube above the doyle however recommended to pull back the tube approximately 37 L. G-tube was in place. CT interpreted by me (1pt min.). @ -CT head was pending at this time. U/S interpreted by me (1pt. min.). @ -None done What testing was considered but not performed or refused? (CT, X-rays, U/S, labs)? Why? @ -None What meds were considered but not given or refused? Why? @ -None Did you discuss the management of the patient with other professionals (professionals i.e. , PA, WAREHOUSE S[employer]TER, lab, RT, psych nurse, social services aide, physician gynecologist, teacher, ecological technical officer, telehealth case manager)? Give summary @ -Yes, admitting physician and ICU staker surveying, Dr. Cheney [id number] Was smoking cessation discussed for >3mins.? @ -No Was critical care preformed (if so, how long)? @ -Yes, see above Were there social determinants of health that impacted care today? How? (Homelessness, low income, unemployed, alcoholism, drug addiction, transportation, low edu. Level, literacy, decrease access to med. care, shelter, rehab)? @ -No Was there de-escalation of care discussed even if they declined (Discuss DNR or withdrawal of care, Hospice)? DNR status @ -No What co-morbidities impacted this encounter? (DM, HTN, Smoking, COPD, CAD, Cancer, CVA, ARF, Chemo, Hep., AIDS, mental health diagnosis, sleep apnea, morbid obesity)? @ -None Was patient admitted / discharged? Hospital course, mention meds given and route, prescriptions, significant lab abnormalities, going to OR and other pertinent info. @ -The patient was seen and evaluated in the emergency department. Physical exam, the patient was in active cardiac arrest and CPR was continued. Initially on arrival, pulses were checked and the patient did have pulses. The patient continued to have ROSC. The patient was intubated and the patient's blood pressure did decrease significantly therefore the patient was started and Levothroid. The patient had a central line placed as well. The patient's laboratory workup was to pending for completion at this time however did haven't significantly elevated white blood cell count and in the setting of hypotension and a cardiac arrest, the patient was likely in septic shock. The patient was started on vancomycin as well as cefepime for sepsis and cultures were obtained. The patient will be admitted to the ICU for continued workup and evaluation. Undiagnosed new problem with uncertain prognosis? @ -No Drug Therapy requiring intensive monitoring for toxicity (Heparin, Nitro, Insu clive, Cardizem)? @ -No Were any procedures done? @ -No Diagnosis/symptom? @ -Cardiac arrest likely secondary to septic shock Acute, or Chronic, or Acute on Chronic? @ -Acute Uncomplicated (without systemic symptoms) or Complicated (systemic symptoms)? @ -Complicated Side effects of treatment? @ -No Exacerbation, Progression, or Severe Exacerbation? @ -No Poses a threat to life or bodily function? How? (Chest pain, [place], [place], pneumonia, PE, COPD, DKA, ARF, appy, cholecystitis, CVA, Diverticulitis, Homicidal, Suicidal, threat to staff... and all critical care pts) @ -Yes - Lab Data Result diagrams: 10/29/22 06:30 Lab Results 10/29/22 10/29/22 10/29/22 Range/Units 06:10 06:30 06:30 WBC 31.4 H (3.8-10.6) k/uL RBC 2.39 L (3.80-5.40) m/uL Hgb 7.1 L D (11.4-16.0) gm/dL Hct 25.7 L (34.0-46.0) % MCV 107.6 H D (80.0-100.0) fL MCH 29.5 (25.0-35.0) pg MCHC 27.4 L (31.0-37.0) g/dL RDW 17.4 H (11.5-15.5) % Plt Count 354 (150-450) k/uL MPV 9.3 Neutrophils % 87 % Lymphocytes % 7 % Monocytes % 4 % Eosinophils % 0 % Basophils % 1 % Neutrophils # 27.1 H (1.3-7.7) k/uL Lymphocytes # 2.1 (1.0-4.8) k/uL Monocytes # 1.4 H (0-1.0) k/uL Eosinophils # 0.1 (0-0.7) k/uL Basophils # 0.2 (0-0.2) k/uL Hypochromasia Marked Anisocytosis Slight Macrocytosis Marked A POC Glucose (mg/dL) 74 (70-110) mg/dL POC Glu Real Estate Assessor ID Godwin [place] Urine Color Yellow Urine Appearance Cloudy H (Clear) Urine pH 7.0 (5.0-8.0) Ur Specific Godley 1.016 (1.001-1.035) Urine Protein 1+ H (Negative) Urine Glucose (UA) Negative (Negative) Urine Ketones Negative (Negative) Urine Blood Negative (Negative) Urine Nitrite Negative (Negative) Urine Bilirubin Negative (Negative) Urine Urobilinogen <2.0 (<2.0) mg/dL Ur Leukocyte Esterase Large H (Negative) Urine RBC 3 (0-5) /hpf Urine WBC 10 H (0-5) /hpf Ur Squamous Epith Cells 15 H (0-4) /hpf Urine Bacteria Rare H (None) /hpf Hyaline Casts 42 H (0-2) /lpf Urine Mucus Many H (None) /hpf Critical Care Time Critical Care Time: Yes Total Critical Care Time: 35 Disposition Clinical Impression: Cardiac arrest, Septic shock Disposition: ADMITTED IP TO THIS [facility] Condition: Critical Is patient prescribed a controlled substance at d/c from ED?: No Referrals: Cameron Guillory MD [Primary Care Provider] - 1-2 days Time of Disposition: 07:15 Decision to Admit Reason: Admit from EC Decision Date: 10/29/22 Decision Time: 07:15
[2022-10-29 07:23] LABS: VBG PH 6.96 (7.31-7.41)
[2022-10-29] MEDS ORDERED: NALOXONE 0.4 MG/ML 1 ML VIAL IV PRN (07:24)
[2022-10-29] MEDS ORDERED: VANCOMYCIN IV PER PHARMACY 1 EACH MISC MISCELLANE PRN (07:25)
[2022-10-29 07:30] LABS: Partial Thromboplastin Time 73.9 sec (22.0-30.0)
[2022-10-29] MEDS ORDERED: VANCOMYCIN 1,000 MG in SODIUM CHLORIDE 0.9% 250 ML IVPB ONE (07:30)
[2022-10-29 07:40] LABS: Poikilocytosis (M) Present; Polychromasia Present
[2022-10-29] MEDS ORDERED: SODIUM BICARB 8.4% 50 ML SYR (1 MEQ/ML) IV STA ×2 (07:55→15:23)
[2022-10-29] MEDS ORDERED: SODIUM CHLORIDE 0.9% 1,500 ML IV ONE (07:56)
[2022-10-29 08:36] LABS: ABG Base Excess -9.9 mmol/L; ABG HCO3 19 mmol/L (21-25); ABG PCO2 59 mmHg (35-45); ABG PO2 >400 mmHg (83-108); ABG TCO2 21 mmol/L (19-24); Allen Test Performed? Yes
[2022-10-29 08:38] LABS: ABG PH 7.12 (7.35-7.45)
--- NOTE | 2022-10-29 09:36 | P.CNPUL ---
History of Present Illness Consult date: 10/29/22 Chief complaint: Cardiac arrest History of present illness: This is a 62-year-old female patient who came in to the emergency department with a cardiac arrest. The patient was in the hospital back in 10/04/2022 for some right-sided weakness and she was also found to have carotid artery stenosis. At that time, the patient had carotid Dopplers that showed 50-99% stenosis of the left ICA and less than 50% stenosis of the right ICA. The patie nt was seen by vascular surgery. The patient had a CT angiogram that showed no evidence of any hemodynamically significant stenosis of the carotid artery bifurcation. And the findings were discordant compared to the CT angiogram. Based on that, medical treatment was recommended. Also known to have COPD. The patient was readmitted to the hospital on 10/19/2022 for multiple blisters and left lower extremity and cellulitis of the left lower extremity and the patient had some swelling of the left leg. She was having some leukocytosis and left shift. She was admitted to the hospital and she was seen by infectious disease. She was treated and she was discharged to [facility]. During this current admission, the patient was found to be unresponsive and she had decreased vital signs. When EMS arrived to the scene, the patient was having agonal breathing and apparently there was a loss and the pulses. Infected with any information on this patient. The nurses did not have any information and the patient was unable to volunteer any history. EMS started off with CPR and did obtain pulses however when they arrived to the emergency, pulses were loss. The patient received a total of 4 doses of epinephrine. No shocks was the liver. The patient was having active CPR at the time of arrival. In the emergency, the patient had regained of pulses. She was intubated and placed on a mechanical ventilator. The intubation was done in the emergency room the patient was given a ET tube. The patient was further found to have leukocytosis with a white cell count of 31.4 with a hemoglobin of 7.1. The blood gas post intubation showed a pH of 7.12 with a pCO2 59 and pO2 of more than 400. The patient was found to have an acute kidney injury with a BUN of 17 and a creatinine of 1.6 and a potassium level is at 5.6. Lactic acid was at 9.1. LFTs were abnormal with AST of 871, ALT of 109 and alkaline phosphatase of 453. Albumin was at 1.3 and the urine showed +1 protein and 10 WBCs. The chest x-ray showed a low-lying orotracheal tube. No acute process was seen in the chest x-ray. Adjustment on the ET tube was done in emergency and the patient is a 7.5 ET tube. At this point in time, the patient has a triple-lumen catheter in the right IJ. The patient is also on pressors with norepinephrine. Cardiac rhythm is sinus. Given antibiotics and fluids. She was given a total of 2.5 L of fluid and current maintenance is at 150 mL an hour. She is also on norepinephrine at 0.3 mcg/kg/m. Urine output is present and the patient has produced approximately 800 mL since she had a [place] catheter inserted. She is on normal sedimentation for now. She is unresponsive and she does not grimace to deep painful stimulation. She is not withdrawing. Pupils are quite dilated and there are around 5 mm in size. She is however breathing above the mechanical ventilator. He does his control mode with a rate of 60 with a tidal volume of 350 and FiO2 of 100% with a PEEP of 5. Peak airway pressures around 33. Cardiac rhythm is sinus. Most recent BP is 85/61. Based on the assisted papers, the patient has had history of TIA, overall generalized weakness, UTI, weakness involving the dominant right side and history of falling. She was also treated for cellulitis of the lower extremity and she is chronically malnourished and this is evident in her significant hypoproteinemia that is seen on the current labs. Past Medical History Past Medical History: COPD, Osteoarthritis (OA) History of Any Multi-Drug Resistant Organisms: None Reported Past Surgical History: Cholecystectomy, Hysterectomy, Joint Replacement, Tonsillectomy Additional Past Surgical History / Comment(s): left knee Past Anesthesia/Blood Transfusion Reactions: No Reported Reaction Past Psychological History: No Psychological Hx Reported Smoking Status: Former smoker Past Alcohol Use History: None Reported Past Drug Use History: None Reported - Past Family History Mother History Unknown: Yes Father Family Medical History: Congestive Heart Failure (CHF), Hypertension Medications and Allergies Home Medications Medication Instructions Recorded Confirmed Type Budesonide-Formot 160-4.5 Mcg 1 puff INHALATION RT-BID 10/03/22 10/17/22 History [Symbicort 160-4.5 Mcg Inhaler] Ketotifen 0.025% Ophth Soln 1 drop BOTH EYES BID 10/03/22 10/17/22 History [Zaditor] Metoclopramide [Reglan] 10 mg PO TID PRN 10/03/22 10/17/22 History Omeprazole [PriLOSEC] 20 mg PO BID 10/03/22 10/17/22 History QUEtiapine FUMARATE [QUEtiapine 300 mg PO HS 10/03/22 10/17/22 History FUMARATE ER] Sucralfate [Carafate] 1 gm PO QID 10/03/22 10/17/22 History rOPINIRole HCL 0.25 mg PO HS 10/03/22 10/17/22 History Aspirin 81 mg PO DAILY #100 tab 10/13/22 10/17/22 Rx Clopidogrel [Plavix] 75 mg PO DAILY #30 tab 10/13/22 10/17/22 Rx Fluconazole [Diflucan] 100 mg PO DAILY #10 tab 10/27/22 Rx Ipratropium-Albuterol Nebulize 3 ml INHALATION RT-TID #90 each 10/27/22 Rx [Duoneb 0.5 mg-3 mg/3 ml Soln] Magnesium Oxide [Mag-Ox] 400 mg PO TID #90 tab 10/27/22 Rx Midodrine [ProAmatine] 5 mg PO AC-BID PRN #60 tab 10/27/22 Rx Potassium Chloride ER [K-Dur 20] 40 meq PO DAILY #60 tab 10/27/22 Rx Allergies Allergy/AdvReac Type Severity Reaction Status Date / Time No Known Allergies Allergy Verified 10/17/22 18:33 Physical Exam Vitals: Vital Signs Temp Pulse Resp BP Pulse Ox FiO2 10/29/22 08:30 92 103/64 100 10/29/22 08:20 93 98/66 100 10/29/22 08:10 96 92/65 100 10/29/22 08:05 100 10/29/22 08:00 90 66/45 100 10/29/22 07:50 90 72/37 100 10/29/22 07:40 89 71/41 100 10/29/22 07:30 87 70/41 100 10/29/22 07:20 87 79/41 100 10/29/22 07:18 87 16 79/41 10/29/22 07:15 100 10/29/22 07:10 87 100 10/29/22 07:00 86 71/45 100 10/29/22 06:15 100 10/29/22 05:57 97.8 F 88 8 L 112/76 98 Intake and Output 10/28/22 10/29/22 10/29/22 22:59 06:59 14:59 Intake Total 3.492 27.381 Balance 3.492 27.381 Intake: Intake, IV Titration 3.492 27.381 Amount Norepinephrine 4 mg In 3.492 27.381 Sodium Chloride 0.9% 250 ml @ 0.03 MCG/KG/MIN 6. 287 mls/hr IV .Q24H ONE Rx#:[id number] Other: Weight 55 kg Gen. appearance the patient is unresponsive. Infected patient is not receiving any sedation at this point in time. Upon repeated stimulation, she was able to open up her eyes yet she is not grimacing or following any commands. She has a weak cough and a weak gag. Pupils are round 5 mm in size and they're reactive to light. She has mucosal dryness. She looks quite debilitated and he remains seated. Currently intubated on a mechanical ventilator. Orotracheal and orogastric tube are both in place. Head exam was generally normal. There was no scleral icterus or corneal arcus. Mucous membranes were moist. Neck was supple and without jugular venous distension, thyromegaly, or carotid bruits. Carotids were easily palpable bilaterally. There was no adenopathy. Lungs were clear to auscultation and percussion, and with normal diaphragmatic excursion. No wheezes or rales were noted. Cardiac exam revealed the PMI to be normally situated and sized. The rhythm was regular and no extrasystoles were noted during several minutes of auscultation. The first and second heart sounds were normal and physiologic splitting of the second heart sound was noted. There were no murmurs, rubs, clicks, or gallops. Abdominal exam revealed normal bowel sounds. The abdomen was soft, non-tender, and without masses, organomegaly, or appreciable enlargement of the abdominal aorta. Extremities revealed no edema. As multiple areas of skin abrasion of the largest area is over the anterior aspect of the left foot and it is probably 4-5 cm in size, probably stage II without any purulent discharge. No ulceration in her sacral areas. No cyanosis or clubbing. Neurologically, no facial asymmetry, weak cough and a weak gag reflex, pupils are round 5 mm in size and reactive to light, she is breathing above the mechanical ventilator by few breasts, motor and sensory functions cannot be assessed in fact the patient is not withdrawing to any deep painful stimulation. Reflexes are diminished and Babinski is not elicited. Results - Laboratory Findings CBC and BMP: 10/29/22 06:30 10/29/22 06:30 ABG ABG pH 7.12 (7.35-7.45) L* 10/29/22 08:25 ABG pCO2 59 mmHg (35-45) H 10/29/22 08:25 ABG pO2 >400 mmHg (83-108) H 10/29/22 08:25 ABG O2 Saturation 100.0 % (94-97) H 10/29/22 08:25 PT/INR, D-dimer PT 17.8 sec (9.0-12.0) H 10/29/22 06:30 INR 1.8 (<1.2) H 10/29/22 06:30 Abnormal lab findings: Abnormal Labs 10/29/22 10/29/22 10/29/22 06:30 06:30 06:30 WBC 31.4 H RBC 2.39 L Hgb 7.1 L D Hct 25.7 L MCV 107.6 H D MCHC 27.4 L RDW 17.4 H Neutrophils # 27.1 H Monocytes # 1.4 H Macrocytosis Marked A PT 17.8 H INR 1.8 H APTT 73.9 H ABG pH ABG pCO2 ABG pO2 ABG HCO3 ABG O2 Saturation VBG pH VBG pCO2 VBG HCO3 Sodium 132 L Potassium 5.6 H Chloride 108 H Carbon Dioxide 14 L Creatinine 1.63 H Glucose 185 H Plasma Lactic Acid Seth Calcium 6.9 L Magnesium Total Bilirubin 1.4 H AST 871 H ALT 109 H Alkaline Phosphatase 453 H Total Protein 3.2 L Albumin 1.3 L Urine Appearance Urine Protein Ur Leukocyte Esterase Urine WBC Ur Squamous Epith Cells Urine Bacteria Hyaline Casts Urine Mucus 10/29/22 10/29/22 10/29/22 06:30 06:30 06:30 WBC RBC Hgb Hct MCV MCHC RDW Neutrophils # Monocytes # Macrocytosis PT INR APTT ABG pH ABG pCO2 ABG pO2 ABG HCO3 ABG O2 Saturation VBG pH 6.96 L* VBG pCO2 66 H VBG HCO3 14 L Sodium Potassium Chloride Carbon Dioxide Creatinine Glucose Plasma Lactic Acid Seth Calcium Magnesium 4.1 H Total Bilirubin AST ALT Alkaline Phosphatase Total Protein Albumin Urine Appearance Cloudy H Urine Protein 1+ H Ur Leukocyte Esterase Large H Urine WBC 10 H Ur Squamous Epith Cells 15 H Urine Bacteria Rare H Hyaline Casts 42 H Urine Mucus Many H 10/29/22 10/29/22 06:48 08:25 WBC RBC Hgb Hct MCV MCHC RDW Neutrophils # Monocytes # Macrocytosis PT INR APTT ABG pH 7.12 L* ABG pCO2 59 H ABG pO2 >400 H ABG HCO3 19 L ABG O2 Saturation 100.0 H VBG pH VBG pCO2 VBG HCO3 Sodium Potassium Chloride Carbon Dioxide Creatinine Glucose Plasma Lactic Acid Seth 9.1 H* Calcium Magnesium Total Bilirubin AST ALT Alkaline Phosphatase Total Protein Albumin Urine Appearance Urine Protein Ur Leukocyte Esterase Urine WBC Ur Squamous Epith Cells Urine Bacteria Hyaline Casts Urine Mucus - Diagnostic Findings Chest x-ray: image reviewed Assessment and Plan Plan: Cardiac arrest, exact circumstances are not known. Initial cardiac rhythm is not known. The patient was given CPR and epinephrine at the assisted and the patient got transferred to our emergency while receiving CPR. In the emergency, the patient was found to have adequate pulses and no further CPR was done. The patient was given a triple-lumen catheter. The patient was started on pressors for profound hypotension and she remains in shock with evidence of multisystem organ failure. For now the patient is unresponsive and obvious concerns for anoxic encephalopathy. Acute hypoxic/hypercapnic respiratory failure post cardiac arrest Acute lactic acidosis Acute kidney injury Acute hypotension/shock state with evidence of multisystem organ failure, rule out septic shock. Echocardiogram that was done on earlier admissions from few weeks back was negative. Acute hyperkalemia Acute leukocytosis Acute abnormalities and LFT, rule out shock liver Severe hypoproteinemia and hypoalbuminemia History of right-sided weakness with a negative neuro workup including a computed tomography scan of the brain, CT angiogram of the brain and MRI of the brain History of skin abrasion involving the lower extremities with recent cellulitis, treated and the patient continues to have skin abrasions Difficulties with abolition a walk-in History of falls skilled nursing resident Plan Immediate neuro consultation CAT scan of the brain, no contrast to rule out bleed electrocardiogram Keep the patient off sedation for now and monitor mental status, as there is an obvious concern for anoxic encephalopathy Aggressive fluid resuscitation. The patient needs to receive at least 3 L of IV fluids for now and the maintenance will be a bicarb infusion at the rate of 150 mL an hour Continue pressors for now to maintain a mean arterial pressure above 65 I'm going to give this patient a arterial line once the patient arrives to the ICU IV cefepime and vancomycin as broad-spectrum antibiotic coverage, pending cul tures Check cardiac enzymes Monitor lactic acid level IV Protonix Heparin subcu portably prophylaxis Repeat echocardiogram Blood cultures Monitor electrolytes including potassium level Ultrasound the kidneys and the liver Condition is critical. We obviously need more information regarding her previ ous history and current presentation. For now, we will going to take care of her and move her to the intensive care unit.
[2022-10-29] MEDS ORDERED: DEXTROSE 5% IN WATER 1,000 ML with SODIUM BICARB (1 MEQ/ML) 150 ML IV SCH (09:45)
[2022-10-29] MEDS ORDERED: PANTOPRAZOLE 40 MG/10 ML VIAL IVP SCH (09:45)
--- NOTE | 2022-10-29 11:11 | P.CNNES ---
History of Present Illness Consult date: 10/29/22 Requesting physician: Sanjeev Cheney Reason for Consult: cardiac arrest History of Present Illness: This is a 62-year-old woman with history of syncope episodes COPD who presented emergency department because of cardiac arrest. History is obtained from medical record. This seems the patient was found unresponsive with decreased vital signs. Patient was having agonal breathing with loss of pulse EMS started CPR and is seems the when she arrived to the emergency pulses there is a loss according to the documentation. Patient got a total of 4 doses of epinephrine. Seems that the patient had CPR and some arrival and then she regained pulse. As a result the patient was intubated on mechanical ventilator. She was seen by Dr. Torres last on 10/08/2023 for syncope and had left carotid stenosis of 50-69% on the duplex but normal on CT angiography. Patient had an discordant finding between carotid that and the CT angiography. Vascular surgery was on board and recommended the outpatient follow-up area and it seems that the patient had a syncopal episode followed by right hemiparesis but the MRI the brain was negative for acute stroke in the hemiparesis resolved. Please refer to Dr. Montes for further details. Some of the workup during his hospital visit consisted of: She is afebrile. She did not blood pressure was as low as 66/45 facility. Initial white blood cell is 31.4 thousand. It's predominantly neutrophilic Sodium is 132, creatinine is 1.63, plasma lactic acid vein is 9.1, the calcium 6.9, magnesium is 4.1, AST of 71 ALT of 109. Initial serum glucose is 185 Urinalysis is cloudy, large leukocytes and that your white blood cells 10 questionable of urinary tract infection EKG report is reviewed and is reported as acute DC. Review of Systems View of system is limited by the per positive and negative as per HPI. Past Medical History Past Medical History: COPD, Osteoarthritis (OA) History of Any Multi-Drug Resistant Organisms: None Reported Past Surgical History: Cholecystectomy, Hysterectomy, Joint Replacement, Tonsillectomy Additional Past Surgical History / Comment(s): left knee Past Anesthesia/Blood Transfusion Reactions: No Reported Reaction Past Psychological History: No Psychological Hx Reported Smoking Status: Former smoker Past Alcohol Use History: None Reported Past Drug Use History: None Reported - Past Family History Mother History Unknown: Yes Father Family Medical History: Congestive Heart Failure (CHF), Hypertension Medications and Allergies Home Medications Medication Instructions Recorded Confirmed Type Budesonide-Formot 160-4.5 Mcg 1 puff INHALATION RT-BID 10/03/22 10/29/22 History [Symbicort 160-4.5 Mcg Inhaler] Ketotifen 0.025% Ophth Soln 1 drop BOTH EYES BID 10/03/22 10/29/22 History [Zaditor] Metoclopramide [Reglan] 10 mg PO TID PRN 10/03/22 10/29/22 History Omeprazole [PriLOSEC] 20 mg PO BID 10/03/22 10/29/22 History QUEtiapine FUMARATE [QUEtiapine 300 mg PO HS 10/03/22 10/29/22 History FUMARATE ER] Sucralfate [Carafate] 1 gm PO QID 10/03/22 10/29/22 History rOPINIRole HCL 0.25 mg PO HS 10/03/22 10/29/22 History Fluconazole [Diflucan] 100 mg PO DAILY #10 tab 10/27/22 10/29/22 Rx Midodrine [ProAmatine] 5 mg PO AC-BID PRN #60 tab 10/27/22 10/29/22 Rx Potassium Chloride ER [K-Dur 20] 40 meq PO DAILY #60 tab 10/27/22 10/29/22 Rx Aspirin 81 mg PO HS 10/29/22 10/29/22 History Clopidogrel [Plavix] 75 mg PO HS 10/29/22 10/29/22 History Collagenase [Santyl Ointment] 1 applic TOPICAL DAILY PRN 10/29/22 10/29/22 History Collagenase [Santyl Ointment] 1 applic TOPICAL HS 10/29/22 10/29/22 History HYDROcodone/APAP 5-325MG [[place] 1 tab PO Q8H PRN 10/29/22 10/29/22 History 5-325] Ipratropium-Albuterol Nebulize 3 ml INHALATION RT-Q8H 10/29/22 10/29/22 History [Duoneb 0.5 mg-3 mg/3 ml Soln] Lactose-Reduced Food [Ensure Plus] 240 ml PO BID 10/29/22 10/29/22 History Magnesium Oxide [Mag-Ox] 400 mg PO TID@0600,1400,2200 10/29/22 10/29/22 History hydrOXYzine pamoate [Vistaril] 50 mg PO Q6H PRN 10/29/22 10/29/22 History Allergies Allergy/AdvReac Type Severity Reaction Status Date / Time No Known Allergies Allergy Verified 10/29/22 12:09 Physical Examination - Vital Signs Vital Signs: Vital Signs Temp Pulse Resp BP Pulse Ox FiO2 10/29/22 08:30 92 103/64 100 10/29/22 08:20 93 98/66 100 10/29/22 08:10 96 92/65 100 10/29/22 08:05 100 10/29/22 08:00 90 66/45 100 10/29/22 07:50 90 72/37 100 10/29/22 07:40 89 71/41 100 10/29/22 07:30 87 70/41 100 10/29/22 07:20 87 79/41 100 10/29/22 07:18 87 16 79/41 10/29/22 07:15 100 10/29/22 07:10 87 100 10/29/22 07:00 86 71/45 100 10/29/22 06:15 100 10/29/22 05:57 97.8 F 88 8 L 112/76 98 Intake and Output 10/28/22 10/29/22 10/29/22 22:59 06:59 14:59 Intake Total 3.492 27.381 Balance 3.492 27.381 Intake: Intake, IV Titration 3.492 27.381 Amount Norepinephrine 4 mg In 3.492 27.381 Sodium Chloride 0.9% 250 ml @ 0.03 MCG/KG/MIN 6. 287 mls/hr IV .Q24H ONE Rx#:[id number] Other: Weight 55 kg GENERAL: The patient is lying in bed and is not in acute distress. CHEST: The heart rate is regular rate rhythm. No murmurs to auscultation. LUNG: Clear to auscultation bilaterally no wheezing noted throughout. Not labored breathing. Intubated on ventilator. ABDOMEN/GI: Bowel sounds present in all 4 quadrants. No tenderness to palpation throughout. INTEGUMENTARY: Bruises in all extremities. NEUROLOGICAL: Higher mental function: The patient is comatose. GCS 3 ( E1, VT1, M1) Not following commands. Cranial nerves: I had open her eyes. Primary gazes is midline. The pupils are round, equa 3-4mml and reactive to light. No facial weakness. Grimaces face w ith painful stimuli. No corneal reflex. No gag or cough. No occulocephalic reflex. No breathing over the vent. Motor: The strength is unable to asses individual muscle. No spontaneous movement. No withdrawal of any extremities to painful stimuli. Normal bulk. Decrease bulk throughout. Cerebellum: Unable to assess. Sensation: Unable to assess light touch. Reflexes (right/left): 0 throughout.. Plantars are mute bilaterally. Results - Laboratory Findings CBC and BMP: 10/29/22 06:30 10/29/22 06:30 Abnormal Lab Findings: Abnormal Labs 10/29/22 10/29/22 10/29/22 06:30 06:30 06:30 WBC 31.4 H RBC 2.39 L Hgb 7.1 L D Hct 25.7 L MCV 107.6 H D MCHC 27.4 L RDW 17.4 H Neutrophils # 27.1 H Monocytes # 1.4 H Macrocytosis Marked A PT 17.8 H INR 1.8 H APTT 73.9 H ABG pH ABG pCO2 ABG pO2 ABG HCO3 ABG O2 Saturation VBG pH VBG pCO2 VBG HCO3 Sodium 132 L Potassium 5.6 H Chloride 108 H Carbon Dioxide 14 L Creatinine 1.63 H Glucose 185 H Plasma Lactic Acid Seth Calcium 6.9 L Magnesium Total Bilirubin 1.4 H AST 871 H ALT 109 H Alkaline Phosphatase 453 H Total Protein 3.2 L Albumin 1.3 L Urine Appearance Urine Protein Ur Leukocyte Esterase Urine WBC Ur Squamous Epith Cells Urine Bacteria Hyaline Casts Urine Mucus 10/29/22 10/29/22 10/29/22 06:30 06:30 06:30 WBC RBC Hgb Hct MCV MCHC RDW Neutrophils # Monocytes # Macrocytosis PT INR APTT ABG pH ABG pCO2 ABG pO2 ABG HCO3 ABG O2 Saturation VBG pH 6.96 L* VBG pCO2 66 H VBG HCO3 14 L Sodium Potassium Chloride Carbon Dioxide Creatinine Glucose Plasma Lactic Acid Seth Calcium Magnesium 4.1 H Total Bilirubin AST ALT Alkaline Phosphatase Total Protein Albumin Urine Appearance Cloudy H Urine Protein 1+ H Ur Leukocyte Esterase Large H Urine WBC 10 H Ur Squamous Epith Cells 15 H Urine Bacteria Rare H Hyaline Casts 42 H Urine Mucus Many H 10/29/22 10/29/22 06:48 08:25 WBC RBC Hgb Hct MCV MCHC RDW Neutrophils # Monocytes # Macrocytosis PT INR APTT ABG pH 7.12 L* ABG pCO2 59 H ABG pO2 >400 H ABG HCO3 19 L ABG O2 Saturation 100.0 H VBG pH VBG pCO2 VBG HCO3 Sodium Potassium Chloride Carbon Dioxide Creatinine Glucose Plasma Lactic Acid Seth 9.1 H* Calcium Magnesium Total Bilirubin AST ALT Alkaline Phosphatase Total Protein Albumin Urine Appearance Urine Protein Ur Leukocyte Esterase Urine WBC Ur Squamous Epith Cells Urine Bacteria Hyaline Casts Urine Mucus Assessment and Plan Assessment: Cardiac arrest unknown etiology. Unknown downtime Encephalopathy due to patient cardiac arrest also patient has metabolic derangement Acute hypotension/shock with evidence of multisystem organ failure (leukocytosis, afebrile). Rule out septic shock Acute kidney injury Hepatic shock Acute lactic acidosis History of syncope Episode of right hemiparesis but MRI Brain is negative 09/2022 Discordant finding between carotid that and the CT angiography left carotid stenosis of 50-69% on the duplex but normal on CT angiography. History of cellulitis of lower extremity Multiple falls. Plan: I agree with a CT of the brain I ordered the a stat EEG Ordered ammonia level Every hour neuro checks IV cefepime and vancomycin as proximate antibiotic was started by the the ICU attending and pending cultures. Rule out rule out sepsis We'll defer the rest of the medical management to primary team Patient condition is very guarded Plan is discussed with her nurse. Thank you for the consultation. A total of 35 minutes is spent on care: Reviewing history, labs/imaging and going over plan with team members. Time with Patient: Greater than 30
[2022-10-29] MEDS ORDERED: VASOPRESSIN 20 UNIT in SODIUM CHLORIDE 0.9% 50 ML IV SCH (12:00)
[2022-10-29] MEDS ORDERED: IPRATROPIUM-ALBUTEROL 3 ML NEB INHALATION PRN (12:37)
[2022-10-29] MEDS ORDERED: DEXTROSE 50% SYRINGE 50 ML IVP PRN ×2 (12:40)
[2022-10-29 13:34] LABS: Glucose,Whole Blood 66 mg/dL (70-110)
--- NOTE | 2022-10-29 13:47 | CT ---
EXAMINATION TYPE: CT brain wo con DATE OF EXAM: 10/29/2022 HISTORY: Cardiac Arrest CT DLP: 1130.6 mGycm. Automated Exposure Control for Dose Reduction was Utilized. TECHNIQUE: CT scan of the head is performed without contrast. COMPARISON: CT brain October 17, 2022. FINDINGS: There is no acute intracranial hemorrhage or midline shift identified. There is mild diff use ventricular and sulcal prominence consistent with diffuse age-related cerebral atrophy. There is mild low-attenuation in the periventricular white matter consistent with chronic small vessel ischem ic change. Air-fluid levels in the dependent portion of the bilateral maxillary and sphenoid sinuses is now present. Globes are intact bilaterally. IMPRESSION: No acute intracranial hemorrhage or midline shift. There is mild diffuse age-related ce rebral atrophy and chronic small vessel ischemic change redemonstrated, no significant change from pr ior study. New air fluid levels bilateral sphenoid and maxillary sinuses. Correlate clinically to ex clude acute sinusitis.
[2022-10-29 13:53] LABS: Glucose,Whole Blood 131 mg/dL (70-110)
[2022-10-29] MEDS ORDERED: NOREPINEPHRINE 32 MG in SODIUM CHLORIDE 0.9% 218 ML IV SCH (14:00)
--- NOTE | 2022-10-29 14:47 | P.PCN ---
Preoperative Diagnosis: Cardiac arrest Procedure(s) Performed: Arterial line insertion Anesthesia: local Surgeon: Sanjeev Cheney Pathology: other Condition: critical Disposition: ICU Operative Findings: Indication: Hemodynamic monitoring. A time-out was completed verifying correct patient, procedure, site, positioning, and implant(s) or special equipment if applicable. Allens test was performed to ensure adequate perfusion. The patient s right groin was prepped and draped in sterile fashion. 1% Lidocaine was used to anesthetize the area. An 18G Arrow arterial line was introduced into the femoral artery artery. The catheter was threaded over the guide wire and the needle was removed with appropriate pulsatile blood return. Blood loss was minimal. The catheter was then sutured in place to the skin and a sterile dressing applied. Perfusion to the extremity distal to the point of catheter insertion was checked and found to be adequate. The patient tolerated the procedure well and there were no complications.
[2022-10-29 15:09] LABS: ABG Base Excess -13.2 mmol/L; ABG HCO3 18 mmol/L (21-25); ABG Oxygen Saturation 97.8 % (94-97); ABG PO2 150 mmHg (83-108); ABG TCO2 20 mmol/L (19-24)
[2022-10-29 15:13] LABS: ABG PCO2 71 mmHg (35-45); ABG PH 7.01 (7.35-7.45); Allen Test Performed? no
[2022-10-29 16:34] VITALS: BP 69/50; TEMP 92.8
[2022-10-29] MEDS: IPRATROPIUM-ALBUTEROL 3 ML NEB INHALATION SCH ×2 (16:44→19:43)
[2022-10-29] MEDS ORDERED: EPINEPHrine 10 ML SYRINGE (0.1 MG/ML) ONE (17:00)
[2022-10-29 17:05] VITALS: PULSE 69; RESP 16
[2022-10-29 17:20] VITALS: BMI 22.1
--- NOTE | 2022-10-29 17:42 | P.PN ---
Progress Note - Text Progress Note Date: 10/29/22 CODE BLUE note: CODE BLUE was activated at 5:11 PM. I arrived shortly thereafter. Patient was noted to be in asystole. High-quality chest compressions were started. Patient received multiple doses of epinephrine. She remained in asystole. This code ran for 20 minutes. Last pulse check patient was noted to be in asystole. Resuscitation efforts were stopped and patient was pronounced . There was a family member at bedside.
[2022-10-29] MEDS ORDERED: INSULIN ASPART (NovoLOG) 100 UNIT/ML VIAL SQ SCH (18:00)
--- NOTE | 2022-10-29 18:15 | EEG ---
ELECTROENCEPHALOGRAM REPORT CLINICAL HISTORY: This is a 62-year-old woman with acute cardiac arrest, who has altered mental status. The video EEG is obtained to evaluate for seizure and epileptiform discharges. RELEVANT MEDICATION: IV propofol. EEG TYPE: This is a routine 21-channel EEG performed with video using the 10/20 electrode placement system. DESCRIPTION: The background consists of diffuse [id number] voltage of 1-1/2 to 2-1/2 nonrhythmic delta activity. There is no physiological sleep architecture seen. There is no focal slowing. There is moderate amount of myogenic artifact during the study. Interictal and ictal is none. ACTIVATION PROCEDURE: Photic stimulation and hyperventilation are not performed. CLINICAL INTERPRETATION: This is an abnormal routine EEG. The background slowing is suggestive of severe encephalopathy. Otherwise, there is no focal slowing, epileptiform discharge, or seizure on the EEG. Clinical correlation is recommended. CHRISTIANO / ANT: [id number] / MTDD
--- NOTE | 2022-10-29 18:46 | CA ---
Transthoracic Echo Report Name: Sandra Riggs Age: 62 Gender: F : 1960 Exam Date: 10/29/2022 11:00 Exam Location: [facility] Ht (in): 62 Wt (lb): 121 Ordering Physician: Sanjeev Cheney MD Attending/Referring Phys: [employer] Customer Service Agent Zoe Montaño RDCS Procedure CPT: Indications: Cardiac Arrest Cardiac Hx: Technical Quality: Fair Contrast 1: Total Dose (mL): Contrast 2: Total Dose (mL): MEASUREMENTS (Male / Female) Normal Values 2D ECHO LV Diastolic Diameter PLAX 4.0 cm 4.2 - 5.9 / 3.9 - 5.3 cm LV Systolic Diameter PLAX 2.2 cm IVS Diastolic Thickness 1.1 cm 0.6 - 1.0 / 0.6 - 0.9 cm LVPW Diastolic Thickness 0.9 cm 0.6 - 1.0 / 0.6 - 0.9 cm LV Relative Wall Thickness 0.5 DOPPLER AV Peak Velocity 123.5 cm/s AV Peak Gradient 6.1 mmHg FINDINGS Left Ventricle No obvious regional wall motion abnormalities. Left ventricular ejection fraction is estimated at 55 %. Mildly increased left ventricular wall thickness. Right Ventricle Normal right ventricular size and function. Right Atrium Normal right atrial size. Left Atrium Normal left atrial size. Mitral Valve Trace to mild mitral regurgitation. Aortic Valve No aortic stenosis. No aortic regurgitation. Tricuspid Valve Mild tricuspid regurgitation. Pulmonic Valve Trace pulmonic regurgitation. Pericardium No pericardial effusion. Aorta Normal size aortic root and proximal ascending aorta. CONCLUSIONS Mild LVH with preserved systolic function No valvular abnormalities Previewed by: Dr. Steve Matias MD (Electronically Signed) Final Date: 29 October 2022 18:45
[2022-10-29] MEDS ORDERED: CHLORHEXIDINE GLUCONATE 15 ML CUP MUCOUS MEM SCH (21:00)
[2022-10-29] MEDS ORDERED: CEFEPIME 2 GM in SODIUM CHLORIDE 0.9% 100 ML IVPB SCH (21:00)
[2022-10-30] MEDS ORDERED: ENOXAPARIN 40 MG/0.4 ML SYRINGE SQ SCH (09:00)
--- NOTE | 2022-10-30 20:15 | P.HPIM ---
History of Present Illness H&P Date: 10/29/22 Chief Complaint: Cardiac arrest 61-year-old female who presented to the emergency department via EMS in cardiac arrest. It was reported by EMS that they received a call from [facility] for a patient that had decreased vital signs. When they arrived, the patient was agonal breathing and lost pulses. The nurses did not have any information on the patient had no history on the patient. EMS was there to begin CPR and did obtain pulses back and route however when they arrived here lost pulses once again. The patient received 4 epinephrines and no shocks. The patient was having active CPR on arrival. No further history was obtained at this time. The patient was "[facility] code per the [facility] because she does not have any paperwork and it default still full code." The patient was having active CPR at the time of arrival. In the emergency, the patient had regained of pulses. She was intubated and placed on a mechanical ventilator. The intubation was done in the emergency room the patient was given a ET tube. The patient was further found to have leukocytosis with a white cell count of 31.4 with a hemoglobin of 7.1. The blood gas post intubation showed a pH of 7.12 with a pCO2 59 and pO2 of more than 400. The patient was found to have an acute kidney injury with a BUN of 17 and a creatinine of 1.6 and a potassium level is at 5.6. Lactic acid was at 9.1. LFTs were abnormal with AST of 871, ALT of 109 and alkaline phosphatase of 453. Albumin was at 1.3 and the urine showed +1 protein and 10 WBCs. The chest x-ray showed a low-lying orotracheal tube. No acute process was seen in the chest x-ray. Adjustment on the ET tube was done in emergency and the patient is a 7.5 ET tube. Review of Systems ROS unobtainable: due to endotracheal tube Past Medical History Past Medical History: COPD, Osteoarthritis (OA) History of Any Multi-Drug Resistant Organisms: None Reported Past Surgical History: Cholecystectomy, Hysterectomy, Joint Replacement, Tonsillectomy Additional Past Surgical History / Comment(s): left knee Past Anesthesia/Blood Transfusion Reactions: No Reported Reaction Past Psychological History: No Psychological Hx Reported Smoking Status: Former smoker Past Alcohol Use History: None Reported Past Drug Use History: None Reported - Past Family History Mother History Unknown: Yes Father Family Medical History: Congestive Heart Failure (CHF), Hypertension Medications and Allergies Home Medications Medication Instructions Recorded Confirmed Type Budesonide-Formot 160-4.5 Mcg 1 puff INHALATION RT-BID 10/03/22 10/29/22 History [Symbicort 160-4.5 Mcg Inhaler] Ketotifen 0.025% Ophth Soln 1 drop BOTH EYES BID 10/03/22 10/29/22 History [Zaditor] Metoclopramide [Reglan] 10 mg PO TID PRN 10/03/22 10/29/22 History Omeprazole [PriLOSEC] 20 mg PO BID 10/03/22 10/29/22 History QUEtiapine FUMARATE [QUEtiapine 300 mg PO HS 10/03/22 10/29/22 History FUMARATE ER] Sucralfate [Carafate] 1 gm PO QID 10/03/22 10/29/22 History rOPINIRole HCL 0.25 mg PO HS 10/03/22 10/29/22 History Fluconazole [Diflucan] 100 mg PO DAILY #10 tab 10/27/22 10/29/22 Rx Midodrine [ProAmatine] 5 mg PO AC-BID PRN #60 tab 10/27/22 10/29/22 Rx Potassium Chloride ER [K-Dur 20] 40 meq PO DAILY #60 tab 10/27/22 10/29/22 Rx Aspirin 81 mg PO HS 10/29/22 10/29/22 History Clopidogrel [Plavix] 75 mg PO HS 10/29/22 10/29/22 History Collagenase [Santyl Ointment] 1 applic TOPICAL DAILY PRN 10/29/22 10/29/22 History Collagenase [Santyl Ointment] 1 applic TOPICAL HS 10/29/22 10/29/22 History HYDROcodone/APAP 5-325MG [[place] 1 tab PO Q8H PRN 10/29/22 10/29/22 History 5-325] Ipratropium-Albuterol Nebulize 3 ml INHALATION RT-Q8H 10/29/22 10/29/22 History [Duoneb 0.5 mg-3 mg/3 ml Soln] Lactose-Reduced Food [Ensure Plus] 240 ml PO BID 10/29/22 10/29/22 History Magnesium Oxide [Mag-Ox] 400 mg PO TID@00,1400,2200 10/29/22 10/29/22 History hydrOXYzine pamoate [Vistaril] 50 mg PO Q6H PRN 10/29/22 10/29/22 History Allergies Allergy/AdvReac Type Severity Reaction Status Date / Time No Known Allergies Allergy Verified 10/29/22 12:09 Physical Exam Vitals: Vital Signs Temp Pulse Resp BP Pulse Ox FiO2 10/29/22 08:30 92 103/64 100 10/29/22 08:20 93 98/66 100 10/29/22 08:10 96 92/65 100 10/29/22 08:05 100 10/29/22 08:00 90 66/45 100 10/29/22 07:50 90 72/37 100 10/29/22 07:40 89 71/41 100 10/29/22 07:30 87 70/41 100 10/29/22 07:20 87 79/41 100 10/29/22 07:18 87 16 79/41 10/29/22 07:15 100 10/29/22 07:10 87 100 10/29/22 07:00 86 71/45 100 10/29/22 06:15 100 10/29/22 05:57 97.8 F 88 8 L 112/76 98 Intake and Output 10/28/22 10/29/22 10/29/22 22:59 06:59 14:59 Intake Total 3.492 27.381 Balance 3.492 27.381 Intake: Intake, IV Titration 3.492 27.381 Amount Norepinephrine 4 mg In 3.492 27.381 Sodium Chloride 0.9% 250 ml @ 0.03 MCG/KG/MIN 6. 287 mls/hr IV .Q24H ONE Rx#:[id number] Other: Weight 55 kg Gen. appearance the patient is unresponsive. Infected patient is not receiving any sedation at this point in time. Upon repeated stimulation, she was able to open up her eyes yet she is not grimacing or following any commands. She has a weak cough and a weak gag. Pupils are round 5 mm in size and they're reactive to light. She has mucosal dryness. She looks quite debilitated and he remains seated. Currently intubated on a mechanical ventilator. Orotracheal and orogastric tube are both in place. Head exam was generally normal. There was no scleral icterus or corneal arcus. Mucous membranes were moist. Neck was supple and without jugular venous distension, thyromegaly, or carotid bruits. Carotids were easily palpable bilaterally. There was no adenopathy. Lungs were clear to auscultation and percussion, and with normal diaphragmatic excursion. No wheezes or rales were noted. Cardiac exam revealed the PMI to be normally situated and sized. The rhythm was regular and no extrasystoles were noted during several minutes of auscultation. The first and second heart sounds were normal and physiologic splitting of the second heart sound was noted. There were no murmurs, rubs, clicks, or gallops. Abdominal exam revealed normal bowel sounds. The abdomen was soft, non-tender, and without masses, organomegaly, or appreciable enlargement of the abdominal aorta. Extremities revealed no edema. As multiple areas of skin abrasion of the largest area is over the anterior aspect of the left foot and it is probably 4-5 cm in size, probably stage II without any purulent discharge. No ulceration in her sacral areas. No cyanosis or clubbing. Results CBC & Chem 7: 10/29/22 06:30 10/29/22 06:30 Labs: Abnormal Lab Results - Last 24 Hours (Table) 10/29/22 10/29/22 10/29/22 Range/Units 06:30 06:30 06:30 WBC 31.4 H (3.8-10.6) k/uL RBC 2.39 L (3.80-5.40) m/uL Hgb 7.1 L D (11.4-16.0) gm/dL Hct 25.7 L (34.0-46.0) % MCV 107.6 H D (80.0-100.0) fL MCHC 27.4 L (31.0-37.0) g/dL RDW 17.4 H (11.5-15.5) % Neutrophils # 27.1 H (1.3-7.7) k/uL Monocytes # 1.4 H (0-1.0) k/uL Macrocytosis Marked A PT 17.8 H (9.0-12.0) sec INR 1.8 H (<1.2) APTT 73.9 H (22.0-30.0) sec ABG pH (7.35-7.45) ABG pCO2 (35-45) mmHg ABG pO2 (83-108) mmHg ABG HCO3 (21-25) mmol/L ABG O2 Saturation (94-97) % VBG pH (7.31-7.41) VBG pCO2 (37-51) mmHg VBG HCO3 (24-28) mmol/L Sodium 132 L (137-145) mmol/L Potassium 5.6 H (3.5-5.1) mmol/L Chloride 108 H (98-107) mmol/L Carbon Dioxide 14 L (22-30) mmol/L Creatinine 1.63 H (0.52-1.04) mg/dL Glucose 185 H (74-99) mg/dL Plasma Lactic Acid Seth (0.7-2.0) mmol/L Calcium 6.9 L (8.4-10.2) mg/dL Magnesium (1.6-2.3) mg/dL Total Bilirubin 1.4 H (0.2-1.3) mg/dL AST 871 H (14-36) U/L ALT 109 H (4-34) U/L Alkaline Phosphatase 453 H (38-126) U/L Total Protein 3.2 L (6.3-8.2) g/dL Albumin 1.3 L (3.5-5.0) g/dL Urine Appearance (Clear) Urine Protein (Negative) Ur Leukocyte Esterase (Negative) Urine WBC (0-5) /hpf Ur Squamous Epith Cells (0-4) /hpf Urine Bacteria (None) /hpf Hyaline Casts (0-2) /lpf Urine Mucus (None) /hpf 10/29/22 10/29/22 10/29/22 Range/Units 06:30 06:30 06:30 WBC (3.8-10.6) k/uL RBC (3.80-5.40) m/uL Hgb (11.4-16.0) gm/dL Hct (34.0-46.0) % MCV (80.0-100.0) fL MCHC (31.0-37.0) g/dL RDW (11.5-15.5) % Neutrophils # (1.3-7.7) k/uL Monocytes # (0-1.0) k/uL Macrocytosis PT (9.0-12.0) sec INR (<1.2) APTT (22.0-30.0) sec ABG pH (7.35-7.45) ABG pCO2 (35-45) mmHg ABG pO2 (83-108) mmHg ABG HCO3 (21-25) mmol/L ABG O2 Saturation (94-97) % VBG pH 6.96 L* (7.31-7.41) VBG pCO2 66 H (37-51) mmHg VBG HCO3 14 L (24-28) mmol/L Sodium (137-145) mmol/L Potassium (3.5-5.1) mmol/L Chloride (98-107) mmol/L Carbon Dioxide (22-30) mmol/L Creatinine (0.52-1.04) mg/dL Glucose (74-99) mg/dL Plasma Lactic Acid Seth (0.7-2.0) mmol/L Calcium (8.4-10.2) mg/dL Magnesium 4.1 H (1.6-2.3) mg/dL Total Bilirubin (0.2-1.3) mg/dL AST (14-36) U/L ALT (4-34) U/L Alkaline Phosphatase (38-126) U/L Total Protein (6.3-8.2) g/dL Albumin (3.5-5.0) g/dL Urine Appearance Cloudy H (Clear) Urine Protein 1+ H (Negative) Ur Leukocyte Esterase Large H (Negative) Urine WBC 10 H (0-5) /hpf Ur Squamous Epith Cells 15 H (0-4) /hpf Urine Bacteria Rare H (None) /hpf Hyaline Casts 42 H (0-2) /lpf Urine Mucus Many H (None) /hpf 10/29/22 10/29/22 Range/Units 06:48 08:25 WBC (3.8-10.6) k/uL RBC (3.80-5.40) m/uL Hgb (11.4-16.0) gm/dL Hct (34.0-46.0) % MCV (80.0-100.0) fL MCHC (31.0-37.0) g/dL RDW (11.5-15.5) % Neutrophils # (1.3-7.7) k/uL Monocytes # (0-1.0) k/uL Macrocytosis PT (9.0-12.0) sec INR (<1.2) APTT (22.0-30.0) sec ABG pH 7.12 L* (7.35-7.45) ABG pCO2 59 H (35-45) mmHg ABG pO2 >400 H (83-108) mmHg ABG HCO3 19 L (21-25) mmol/L ABG O2 Saturation 100.0 H (94-97) % VBG pH (7.31-7.41) VBG pCO2 (37-51) mmHg VBG HCO3 (24-28) mmol/L Sodium (137-145) mmol/L Potassium (3.5-5.1) mmol/L Chloride (98-107) mmol/L Carbon Dioxide (22-30) mmol/L Creatinine (0.52-1.04) mg/dL Glucose (74-99) mg/dL Plasma Lactic Acid Seth 9.1 H* (0.7-2.0) mmol/L Calcium (8.4-10.2) mg/dL Magnesium (1.6-2.3) mg/dL Total Bilirubin (0.2-1.3) mg/dL AST (14-36) U/L ALT (4-34) U/L Alkaline Phosphatase (38-126) U/L Total Protein (6.3-8.2) g/dL Albumin (3.5-5.0) g/dL Urine Appearance (Clear) Urine Protein (Negative) Ur Leukocyte Esterase (Negative) Urine WBC (0-5) /hpf Ur Squamous Epith Cells (0-4) /hpf Urine Bacteria (None) /hpf Hyaline Casts (0-2) /lpf Urine Mucus (None) /hpf Assessment and Plan Assessment: 1. Cardiac arrest - [facility] and was transferred to ED while receiving CPR - In the ED patient was started on pressors for profound hypotension with evidence of multiorgan failure 2. Acute hypoxic/hypercapnic respiratory failure; post cardiac arrest - Patient was intubated and placed on mechanical ventilator and transferred to ICU 3. Acute hypotension/shock with multisystem organ failure; likely septic shock 4. Acute hyperkalemia; treated in ED 5. Elevated liver enzymes; likely shock liver -- Stat CT of the brain was done to rule out bleed which was negative; neurology is consulted - Critical care planning to keep patient off sedation and monitor mental status to look for anoxic encephalopathy - Patient is receiving aggressive fluid resuscitation with plans to administer at least 3 L of IV fluids; she has been placed on bicarbonate infusion - Remains on IV cefepime and vancomycin
--- NOTE | 2022-10-30 20:16 | P.DS ---
Providers Date of admission: 10/29/22 07:24 Expected date of discharge: 10/29/22 Attending physician: Ranjan Aguirre Consults: 10/29/22 07:24 Consult Physician Stat Consulting Provider: Sanjeev Cheney Consult Reason/Comments: VDRF, septic shock, ROSC Do you want consulting provider notified?: Already Contacted 10/29/22 09:38 Consult Physician Stat Consulting Provider: Pravin Ramos Consult Reason/Comments: cardiac arrest Do you want consulting provider notified?: Yes Primary care physician: Cameron Calixhven [facility] Course: 62-year-old female patient who came in to the emergency department with a cardiac arrest. The patient was in the hospital back in 10/04/2022 for some right-sided weakness and she was also found to have carotid artery stenosis. At that time, the patient had carotid Dopplers that showed 50-99% stenosis of the left ICA and less than 50% stenosis of the right ICA. The patient was seen by vascular surgery. The patient had a CT angiogram that showed no evidence of any hemodynamically significant stenosis of the carotid artery bifurcation. And the findings were discordant compared to the CT angiogram. Based on that, medical treatment was recommended. Also known to have COPD. The patient was readmitted to the hospital on 10/19/2022 for multiple blisters and left lower extremity and cellulitis of the left lower extremity and the patient had some swelling of the left leg. She was having some leukocytosis and left shift. She was admitted to the hospital and she was seen by infectious disease. She was treated and she was discharged to [facility]. During this current admission, the patient was found to be unresponsive and she had decreased vital signs. When EMS arrived to the scene, the patient was having agonal breathing and apparently there was a loss and the pulses. Infected with any information on this patient. The nurses did not have any information and the patient was unable to volunteer any history. EMS started off with CPR and did obtain pulses however when they arrived to the emergency, pulses were loss. The patient received a total of 4 doses of epinephrine. No shocks was the liver. The patient was having active CPR at the time of arrival. In the emergency, the patient had regained of pulses. She was intubated and placed on a mechanical ventilator. The intubation was done in the emergency room the patient was given a ET tube. The patient was further found to have leukocytosis with a white cell count of 31.4 with a hemoglobin of 7.1. The blood gas post intubation showed a pH of 7.12 with a pCO2 59 and pO2 of more than 400. The patient was found to have an acute kidney injury with a BUN of 17 and a creatinine of 1.6 and a potassium level is at 5.6. Lactic acid was at 9.1. LFTs were abnormal with AST of 871, ALT of 109 and alkaline phosphatase of 453. Albumin was at 1.3 and the urine showed +1 protein and 10 WBCs. The chest x-ray showed a low-lying orotracheal tube. No acute process was seen in the chest x-ray. Adjustment on the ET tube was done in emergency and the patient is a 7.5 ET tube. At this point in time, the patient has a triple-lumen catheter in the right IJ. The patient is also on pressors with norepinephrine. Cardiac rhythm is sinus. Given antibiotics and fluids. She was given a total of 2.5 L of fluid and current maintenance is at 150 mL an hour. She is also on norepinephrine at 0.3 mcg/kg/m. Urine output is present and the patient has produced approximately 800 mL since she had a [place] catheter inserted. She is on normal sedimentation for now. She is unresponsive and she does not grimace to deep painful stimulation. She is not withdrawing. Pupils are quite dilated and there are around 5 mm in size. She is however breathing above the mechanical ventilator. He does his control mode with a rate of 60 with a tidal volume of 350 and FiO2 of 100% with a PEEP of 5. Peak airway pressures around 33. Cardiac rhythm is sinus. Most recent BP is 85/61. Based on the shelter papers, the patient has had history of TIA, overall generalized weakness, UTI, weakness involving the dominant right side and history of falling. She was also treated for cellulitis of the lower extremity and she is chronically malnourished and this is evident in her significant hypoproteinemia that is seen on the current labs. Despite all efforts and treatment a shouldn't did not respond; patient's family was called to update and to discuss plan of care and they wanted patient to be full code and everything be done Despite all measures patient continued to deteriorate and on 10/29/2022 Patient Condition at Discharge: Critical Plan - Discharge Summary New Discharge Prescriptions: No Action Sucralfate [Carafate] 1 gm PO QID rOPINIRole HCL 0.25 mg PO HS QUEtiapine FUMARATE [QUEtiapine FUMARATE ER] 300 mg PO HS Ketotifen 0.025% Ophth Soln [Zaditor] 1 drop BOTH EYES BID Fluconazole [Diflucan] 100 mg PO DAILY #10 tab Collagenase [Santyl Ointment] 1 applic TOPICAL DAILY PRN PRN Reason: bilateral buttock wound care HYDROcodone/APAP 5-325MG [[place] 5-325] 1 tab PO Q8H PRN PRN Reason: Pain Magnesium Oxide [Mag-Ox] 400 mg PO TID@0600,1400,2200 Collagenase [Santyl Ointment] 1 applic TOPICAL HS hydrOXYzine pamoate [Vistaril] 50 mg PO Q6H PRN PRN Reason: Anxiety Aspirin 81 mg PO HS Omeprazole [PriLOSEC] 20 mg PO BID Metoclopramide [Reglan] 10 mg PO TID PRN PRN Reason: reflux Budesonide-Formot 160-4.5 Mcg [Symbicort 160-4.5 Mcg Inhaler] 1 puff INHALATION RT-BID Potassium Chloride ER [K-Dur 20] 40 meq PO DAILY #60 tab Midodrine [ProAmatine] 5 mg PO AC-BID PRN #60 tab PRN Reason: Hypotension Ipratropium-Albuterol Nebulize [Duoneb 0.5 mg-3 mg/3 ml Soln] 3 ml INHALATION RT-Q8H Lactose-Reduced Food [Ensure Plus] 240 ml PO BID Clopidogrel [Plavix] 75 mg PO HS Discharge Medication List Budesonide-Formot 160-4.5 Mcg [Symbicort 160-4.5 Mcg Inhaler] 1 puff INHALATION RT-BID 10/03/22 [History] Ketotifen 0.025% Ophth Soln [Zaditor] 1 drop BOTH EYES BID 10/03/22 [History] Metoclopramide [Reglan] 10 mg PO TID PRN 10/03/22 [History] Omeprazole [PriLOSEC] 20 mg PO BID 10/03/22 [History] QUEtiapine FUMARATE [QUEtiapine FUMARATE ER] 300 mg PO HS 10/03/22 [History] Sucralfate [Carafate] 1 gm PO QID 10/03/22 [History] rOPINIRole HCL 0.25 mg PO HS 10/03/22 [History] Fluconazole [Diflucan] 100 mg PO DAILY #10 tab 10/27/22 [Rx] Midodrine [ProAmatine] 5 mg PO AC-BID PRN #60 tab 10/27/22 [Rx] Potassium Chloride ER [K-Dur 20] 40 meq PO DAILY #60 tab 10/27/22 [Rx] Aspirin 81 mg PO HS 10/29/22 [History] Clopidogrel [Plavix] 75 mg PO HS 10/29/22 [History] Collagenase [Santyl Ointment] 1 applic TOPICAL DAILY PRN 10/29/22 [History] Collagenase [Santyl Ointment] 1 applic TOPICAL HS 10/29/22 [History] HYDROcodone/APAP 5-325MG [[place] 5-325] 1 tab PO Q8H PRN 10/29/22 [History] Ipratropium-Albuterol Nebulize [Duoneb 0.5 mg-3 mg/3 ml Soln] 3 ml INHALATION RT-Q8H 10/29/22 [History] Lactose-Reduced Food [Ensure Plus] 240 ml PO BID 10/29/22 [History] Magnesium Oxide [Mag-Ox] 400 mg PO TID@0600,1400,2200 10/29/22 [History] hydrOXYzine pamoate [Vistaril] 50 mg PO Q6H PRN 10/29/22 [History] Follow up Appointment(s)/Referral(s): Cameron Guillory MD [Primary Care Provider] - 1-2 days Discharge Disposition: - Preliminary Cause of Preliminary Cause of : Cardiac arrest/respiratory failure
[2022-10-31] MEDS ORDERED: VANCOMYCIN 1,000 MG in SODIUM CHLORIDE 0.9% 250 ML IVPB SCH (08:00)
== END 2022-10-29 19:30 | disposition expired | DRG 871 ==
LOC: EC 05:57 → 2SICU 07:24
PROVIDERS: ADMIT Hospitalist; ATTEND Hospitalist
PROC: 5A1935Z Respiratory Ventilation, Less than 24 Consecutive Hours (ICD-10-PCS; principal; 2022-10-29)
PROC: 0BH17EZ Insertion of Endotracheal Airway into Trachea, Via Natural or Artificial Opening (ICD-10-PCS; 2022-10-29)
PROC: 4A133B1 Monitoring of Arterial Pressure, Peripheral, Percutaneous Approach (ICD-10-PCS; 2022-10-29)
PROC: 4A133J1 Monitoring of Arterial Pulse, Peripheral, Percutaneous Approach (ICD-10-PCS; 2022-10-29)
PROC: 5A12012 Performance of Cardiac Output, Single, Manual (ICD-10-PCS; 2022-10-29)
PROC: 02HV33Z Insertion of Infusion Device into Superior Vena Cava, Percutaneous Approach (ICD-10-PCS; 2022-10-29)
PROC: 03HY32Z Insertion of Monitoring Device into Upper Artery, Percutaneous Approach (ICD-10-PCS; 2022-10-29)
PROC: 3E033XZ Introduction of Vasopressor into Peripheral Vein, Percutaneous Approach (ICD-10-PCS; 2022-10-29)
DX: A41.9 Sepsis, unspecified organism (principal); G93.41 Metabolic encephalopathy; J96.01 Acute respiratory failure with hypoxia; J96.02 Acute respiratory failure with hypercapnia; R65.21 Severe sepsis with septic shock; K72.00 Acute and subacute hepatic failure without coma; E46 Unspecified protein-calorie malnutrition; G81.91 Hemiplegia, unspecified affecting right dominant side; L03.116 Cellulitis of left lower limb; N17.9 Acute kidney failure, unspecified; E87.20 Acidosis, unspecified; I46.9 Cardiac arrest, cause unspecified; Z20.822 Contact with and (suspected) exposure to COVID-19; I08.1 Rheumatic disorders of both mitral and tricuspid valves; E77.8 Other disorders of glycoprotein metabolism; E87.5 Hyperkalemia; F17.200 Nicotine dependence, unspecified, uncomplicated; R74.01 Elevation of levels of liver transaminase levels; I65.22 Occlusion and stenosis of left carotid artery; Z79.02 Long term (current) use of antithrombotics/antiplatelets; Z79.51 Long term (current) use of inhaled steroids; Z79.82 Long term (current) use of aspirin; Z79.899 Other long term (current) drug therapy; Z86.73 Personal history of transient ischemic attack (TIA), and cerebral infarction without residual deficits; Z90.710 Acquired absence of both cervix and uterus; Z91.81 History of falling; E88.09 Other disorders of plasma-protein metabolism, not elsewhere classified; Z68.22 Body mass index [BMI] 22.0-22.9, adult; Z90.49 Acquired absence of other specified parts of digestive tract; J44.9 Chronic obstructive pulmonary disease, unspecified
CPT/HCPCS: 31500; 36415; 36556; 36600; 70450; 71045; 80053; 81001; 82803; 82805; 83605; 83735; 84484; 85025; 85610; 85730; 87040; 87070; 87077; 87186; 87205; 87635; 93005; 93306; 94002; 95822; 96365; 96366; 96368; 96375; 99291